=== PATIENT | male | born 1960 | race Caucasian/White ===

== ENCOUNTER 2020-08-20 14:44 | Outpatient (REF) | payer BC, SELFPAY | END 2020-08-20 14:45 | disposition home or self-care (01) | LOC: HO.LNP 14:44 | PROVIDERS: Visit Provider Ophthalmology Retina Specialist | DX: Z20.828 Contact with and (suspected) exposure to other viral communicable diseases (principal) | CPT/HCPCS: 36415; 87635 ==

== ENCOUNTER 2021-02-18 14:25 | Outpatient (REF) | payer BC, SELFPAY ==
--- NOTE | ~2021-02-18 | XR_ITS ---
EXAMINATION: XR CERVICAL SPINE CLINICAL INFORMATION: Cervical disc disorder. COMPARISON: None TECHNIQUE: 3 views of the cervical spine were obtained. FINDINGS: No acute fracture or subluxation. Vertebral body height and alignment is maintained. There is disc space narrowing of C5-C6 and C6-C7 with associated endplate osteophytes. The atlantoaxial joint is well aligned. The dens is intact. The prevertebral soft tissues are unremarkable. The visualized lung apices are clear. XR/XR cervical spine 3V IMPRESSION: Mild degenerative changes of the mid cervical spine.
== END 2021-02-18 14:26 | disposition home or self-care (01) ==
LOC: HO.HMGCX 14:25
PROVIDERS: Visit Provider Nurse Practitioner Family
DX: M50.90 Cervical disc disorder, unspecified, unspecified cervical region (principal)
CPT/HCPCS: 72040

== ENCOUNTER → 2021-02-28 14:41 | Outpatient (REF) | payer BC, SELFPAY ==
--- NOTE | 2021-02-28 14:46 | CA_ITS ---
Transthoracic Echocardiogram Patient (Last, First, Middle): River Sanchez R Gender: Male Date of : 1960 Age: 60 Procedure Date: 02/28/2021 Procedure Type: Transthoracic Echocardiogram Location: OP Height: 182.88 cm Weight: 113.4 kg BSA: 2.34 m2 Heart Rate: bpm BP: 150 / 92 mmHg Sprayer Operator: Referring MD: Lul Mederos [facility] Symptoms: R60.9 - Edema, unspecified Study Quality: Fair ECG Rhythm: Sinus Conclusions: - The left ventricular systolic function is normal. The visually estimated ejection fraction is between 60-65%. - There is mild tricuspid valve regurgitation. - Trace to mild aortic regurgitation. - Mild pulmonary hypertension is present. Findings Left Ventricle Normal left ventricular cavity size. There is normal left ventricular wall thickness. The left ventricular systolic function is normal. The visually estimated ejection fraction is between 60-65%. There is no evidence of regional wall motion abnormalities. Diastolic function is normal for age. Right Ventricle Mildly increased right ventricular cavity size. There is normal right ventricular systolic function. Atria The left atrium is normal in size. The right atrium is normal in size. Aortic Valve There is a normal trileaflet aortic valve. There is no aortic valve stenosis. Trace to mild aortic regurgitation. Mitral Valve The mitral valve appears normal. There is trace mitral valve regurgitation. There is no mitral valve stenosis. Pulmonic Valve The pulmonic valve was not well visualized. Tricuspid Valve Normal tricuspid valve structure. There is mild tricuspid valve regurgitation. The right ventricular systolic pressure is 36 mmHg. Mild pulmonary hypertension is present. Great Vessels The aortic annulus, sinuses of valsalva, and asc aorta are normal in size. Venous The inferior vena cava is normal in size and collapses greater than 50% with inspiration. Pericardium/Pleural There is no evidence of pericardial effusion. Prior Study Comparison No significant change compared to prior study dated: 06/08/2014. Measurements 2D Linear Measurements RVIDd: 3.16 RVIDd Index: 1.35 IVSd: 0.99 0.6-0.9/0.6-1.0 cm LVIDd: 5.10 3.9-5.3/4.2-5.9 cm LVIDd Index: 2.18 2.4-3.2/2.2-3.1 cm/m2 LVIDs: 3.53 2.0-3.6 cm LVPWd: 0.97 0.7-1.1 cm Ao Root: 3.70 2.1-3.5 cm LA Diam: 4.00 2.7-3.8/3.0-4.0 cm LAIDs Index: 1.71 1.5-2.3 cm/m2 LV Mass: 228.33 67-162/88-224 g LV Mass Index: 97.58 43-95/49-115 g/m2 LVOT Diam: 2.30 3.0+(-)1.3 cm 2D Systolic Function EF 4C: 65.50 >55% EF 2C: 60.10 >55% EF BiP: 63.60 >55% Mitral Valve MV Pk E: 0.83 MV PK A: 0.69 MV Decel Time: 236.00 E/A: 1.20 E'Lateral: 9.86 E'Medial: 6.87 E/E' Med: 12.10 E/E' Lat: 8.40 PHT: 69.00 MVA PHT: 3.19 Decel Wheeler: 3.52 Aortic Valve AoV Pk Jovany: 1.25 AoV Mn Jovany: 0.93 AoV VTI: 0.29 AoV Pk Grad: 6.00 Aov Mn Grad: 4.00 DI Cont.VTI: 3.86 LVOT LVOT Pk Jovany: 1.49 LVOT Mn Jovany: 0.88 LVOT VTI: 0.27 LVOT Pk Grad: 9.00 LVOT Mn Grad: 4.00 LVOT Diam: 2.30 LVOT Area: 4.15 Diastolic Function MV Pk E: 0.83 MV Pk A: 0.69 E/A: 1.20 E'Medial: 6.87 E/E' Med: 12.10 E' Laterial: 9.86 E/E' Lat: 8.40 Tricuspid Valve TR Pk Jovany: 2.65 TR Pk Grad: 28.00 RA Press: 8.00 RVSP: 36.00 Great Vessels Aorta Ao Root-2D: 3.70 2.0-3.7 cm Ao Asc: 3.60 2.1-3.4 cm Ao Arch: 3.50 Updated in Other Vendor System with Status of Final Duc Granado MD electronically signed on 03/01/2021 3:59:19 PM with status of Final
== END ==
LOC: HO.CARD 14:41
PROVIDERS: Visit Provider Nurse Practitioner Family
DX: R60.9 Edema, unspecified (principal); R01.1 Cardiac murmur, unspecified
CPT/HCPCS: 93306

== ENCOUNTER 2021-03-06 14:43 | Outpatient (REF) | payer BC, SELFPAY ==
[2021-03-06 17:06] LABS: Alanine Aminotransferase 17 U/L (0-40); Albumin Level 4.2 g/dL (3.5-5.0); Alkaline Phosphatase 85 U/L (39-117); Anion Gap 16 (12-20); Aspartate Amino Transferase 23 U/L (5-37); Bilirubin Total 0.7 mg/dL (0.0-1.0); Blood Urea Nitrogen 18 mg/dL (9-16); Calcium 9.4 mg/dL (8.4-10.2); Carbon Dioxide 27 mmol/L (22-29); Chloride 101 mmol/L (96-108); Cholesterol 182 mg/dL; Estimated Glomerular Filt Rate 56; Glucose Fasting 80 mg/dL (60-99); HDL Cholesterol 36 mg/dL; LDL Cholesterol Calculated 122 mg/dl; Potassium 4.7 mmol/L (3.3-5.1); Sodium 139 mmol/L (135-145); Total Protein 7.3 g/dL (6.5-8.0); Triglycerides 120 mg/dL
[2021-03-06 17:27] LABS: TSH reflex Free T4 0.98 uIU/mL (0.32-4.0)
== END 2021-03-06 14:44 | disposition home or self-care (01) ==
LOC: HO.HMGCLDS 14:43
PROVIDERS: PCP Nurse Practitioner Family; Visit Provider Nurse Practitioner Family
DX: R60.9 Edema, unspecified (principal); I10 Essential (primary) hypertension
CPT/HCPCS: 36415; 80053; 80061; 84443

== ENCOUNTER 2021-04-04 15:00 | Outpatient (RCR) | payer BC, SELFPAY ==
--- NOTE | 2021-03-06 16:37 | MHC.PT.EP ---
[facility] [place] Office [place] Office [place] Office [address] Deidra Mckeon [address] [phone] F: [phone] F: [phone] F: [phone] F: [phone] Physical Therapy Plan of Care Date of Evaluation: Date of Surgery: Diagnosis: Cervical Pain. Assessment: Pt is a 60 y/o male referred to PT for eval and treat of cervical pain who presents with signs and Sx consistent with cervical dysfunction resulting in decreased tolerance for turning his head to end ranges, decreased aleksandr for driving, reading, and recreations, as well as disturbed sleep secondary to decreased cervical ROM, increased accessory tissue tension, decreased cervical ROM and strength, and pain. Pt is deemed an appropriate candidate to receive skilled PT in order to address his physical limitations to improve his functional ability. Frequency and Duration: The patient will be seen 2 x/ wk x 4 wks. Short Term Goals: In 1 week: initiate HEP with evidence of compliance. In 3 weeks: end range pain to < 2/10; initial 4/10. Investigator Utility Bill Complaints Goals: In 4 weeks: I with HEP. In 4 weeks: Pt will be no linger disturbed of sleep d/t cervical pain. In 4 weeks: Pt will be able to drive w/o difficulty d/t cervical pain. Treatment Plan: Modalities to reduce pain, spasms and effusion. Manual therapy to restore motion and function. Therapeutic exercise to improve strength and flexibility. Neuromuscular re-education for posture and balance. Therapeutic activities to return to functional activities of daily living. Electronically signed by: Jules Doshi PT. Please sign and return to therapist. Thank you for your referral.
--- NOTE | 2021-04-04 19:27 | MHC.PT.DC ---
[facility] [place] Office [place] Office [place] Office [address] Deidra Mckeon [address] [phone] F: [phone] F: [phone] F: [phone] F: [phone] Physical Therapy Discharge Report Diagnosis: Cervical Pain. Date of Surgery: Date of Evaluation: 03/06/21 Date of Discharge: 04/04/21 Treatments to Date: 9 Cancellations to Date: 0 No Shows to Date: 0 Discharge Status: Achieved Goals Improved Function Independent with HEP Discharge Summary: River has been an active participant in hit therapy in and out of the clinic. He is in agreement with DC at this time as he has been pain free of his neck, has met his therapeutic goals and is I with his home program. Electronically signed by: Jules Doshi PT. Please sign and return to therapist. Thank you for your referral.
== END 2022-03-20 11:57 | disposition home or self-care (01) ==
LOC: HO.PTCHIC 15:00
PROVIDERS: Visit Provider Nurse Practitioner Family
DX: M50.90 Cervical disc disorder, unspecified, unspecified cervical region (principal)
CPT/HCPCS: 97110; 97140; 97161

== ENCOUNTER 2021-05-09 14:57 | Outpatient (REF) | payer BC, SELFPAY ==
[2021-05-09 16:51] LABS: Alanine Aminotransferase 18 U/L (0-40); Alkaline Phosphatase 80 U/L (39-117); Anion Gap 12 (12-20); Aspartate Amino Transferase 23 U/L (5-37); Bilirubin Total 0.4 mg/dL (0.0-1.0); Blood Urea Nitrogen 29 mg/dL (9-16); Calcium 9.4 mg/dL (8.4-10.2); Carbon Dioxide 29 mmol/L (22-29); Chloride 105 mmol/L (96-108); Estimated Glomerular Filt Rate 51; Glucose Random 89 mg/dL (60-115); Potassium 4.3 mmol/L (3.3-5.1); Sodium 142 mmol/L (135-145)
== END 2021-05-09 14:58 | disposition home or self-care (01) ==
LOC: HO.HMGCLDS 14:57
PROVIDERS: PCP Nurse Practitioner Family; Visit Provider Nurse Practitioner Family
DX: G47.33 Obstructive sleep apnea (adult) (pediatric) (principal)
CPT/HCPCS: 36415; 80053

== ENCOUNTER 2021-05-22 14:49 | Outpatient (REF) | payer BC, SELFPAY ==
[2021-05-22 16:53] LABS: Alanine Aminotransferase 14 U/L (0-40); Albumin Level 3.9 g/dL (3.5-5.0); Alkaline Phosphatase 69 U/L (39-117); Anion Gap 11 (12-20); Aspartate Amino Transferase 20 U/L (5-37); Bilirubin Total 0.4 mg/dL (0.0-1.0); Blood Urea Nitrogen 27 mg/dL (9-16); Calcium 9.6 mg/dL (8.4-10.2); Carbon Dioxide 29 mmol/L (22-29); Chloride 109 mmol/L (96-108); Estimated Glomerular Filt Rate 54; Glucose Random 81 mg/dL (60-115); Potassium 4.6 mmol/L (3.3-5.1); Sodium 144 mmol/L (135-145); Total Protein 6.9 g/dL (6.5-8.0)
== END 2021-05-22 14:50 | disposition home or self-care (01) ==
LOC: HO.HMGCLDS 14:49
PROVIDERS: PCP Nurse Practitioner Family; Visit Provider Nurse Practitioner Family
DX: R79.89 Other specified abnormal findings of blood chemistry (principal)
CPT/HCPCS: 36415; 80053

== ENCOUNTER → 2021-07-01 14:15 | Outpatient (BNVA) | payer BC, SELFPAY | PROVIDERS: PCP Nurse Practitioner Family; Visit Provider Internal Medicine ==

== ENCOUNTER 2021-12-04 08:54 | Outpatient (REF) | payer BC, SELFPAY ==
[2021-12-04 15:54] LABS: COVID-19 Test Positive (Negative)
== END 2021-12-04 08:55 | disposition home or self-care (01) ==
LOC: HO.LAB 08:54
PROVIDERS: Visit Provider Internal Medicine
DX: Z20.822 Contact with and (suspected) exposure to COVID-19 (principal)
CPT/HCPCS: 87635; C9803

== ENCOUNTER → 2022-04-29 10:47 | Outpatient (BNVA) | payer OTHER, SELFPAY | PROVIDERS: PCP Nurse Practitioner Family; Visit Provider Internal Medicine | DX: S61.012A Laceration without foreign body of left thumb without damage to nail, initial encounter (principal); W27.0XXA Contact with workbench tool, initial encounter; Z23 Encounter for immunization | CPT/HCPCS: 12001; 90715; 99203 ==

== ENCOUNTER → 2022-05-01 13:21 | Outpatient (BNVA) | payer OTHER, SELFPAY | PROVIDERS: PCP Nurse Practitioner Family; Visit Provider Internal Medicine | DX: S61.012A Laceration without foreign body of left thumb without damage to nail, initial encounter (principal); L03.012 Cellulitis of left finger; W27.0XXA Contact with workbench tool, initial encounter | CPT/HCPCS: 99214 ==

== ENCOUNTER → 2022-05-06 08:11 | Outpatient (BNVA) | payer OTHER, SELFPAY | PROVIDERS: PCP Nurse Practitioner Family; Visit Provider Internal Medicine | DX: S61.012A Laceration without foreign body of left thumb without damage to nail, initial encounter (principal); W27.0XXA Contact with workbench tool, initial encounter | CPT/HCPCS: 99212; 99213 ==

== ENCOUNTER 2022-12-22 15:03 | Outpatient (REF) | payer BC, SELFPAY ==
--- NOTE | ~2022-12-22 | XR_ITS ---
EXAMINATION: XR SHOULDER, RIGHT CLINICAL INFORMATION: Unspecified sprain right shoulder joint, initial encounter COMPARISON: Right shoulder radiographs 09/09/2011 TECHNIQUE: Three views of the right shoulder. FINDINGS: No acute fracture or dislocation. The glenohumeral joint space is maintained as is the acromiohumeral interval. Minimal marginal osteophyte formation at the inferior humeral head. No evidence calcific tendinopathy of the rotator cuff. AC joint is congruent and intact. No significant degenerative change/osteophyte formation. Visualized right lung is grossly clear. XR/XR shoulder RT min 2V IMPRESSION: 1. No acute osseous injury. 2. Preserved glenohumeral joint space.
== END 2022-12-22 15:04 | disposition home or self-care (01) ==
LOC: HO.HMGCX 15:03
PROVIDERS: PCP Nurse Practitioner Family; Visit Provider Internal Medicine
DX: S43.401A Unspecified sprain of right shoulder joint, initial encounter (principal); X58.XXXA Exposure to other specified factors, initial encounter; Y93.9 Activity, unspecified; Y92.9 Unspecified place or not applicable; Y99.9 Unspecified external cause status
CPT/HCPCS: 73030

== ENCOUNTER 2023-02-09 14:50 | Outpatient (REF) | payer BC, SELFPAY ==
--- NOTE | ~2023-02-09 | XR_ITS ---
EXAMINATION: XR KNEE, RIGHT CLINICAL INFORMATION: Pain COMPARISON: None available. TECHNIQUE: Four views of the right knee. FINDINGS: No fracture or dislocation. No suprapatellar joint effusion. Joint spaces are maintained. Prominent chondrocalcinosis noted. Tiny tricompartmental marginal osteophytes. No focal soft tissue swelling of the anterior knee. XR/XR knee RT 4V IMPRESSION: Mild degenerative changes of the right knee with prominent chondrocalcinosis.
[2023-02-09 16:40] LABS: MANUAL DIFF FLAG NO
[2023-02-09 16:41] LABS: Basophils Absolute Auto 0.1 X10*3/uL (0.0-0.2); Basophils Percent Auto 1.2 % (0-2); Eosinophils Absolute Auto 0.5 X10*3/uL (0.0-0.4); Eosinophils Percent Auto 5.5 % (0-4); Hematocrit 40.9 % (42.0-52.0); Hemoglobin 13.6 g/dl (14.0-18.0); Imm Gran Abs Auto 0.05 X10*3/uL (0.00-0.03); Imm Gran Pct Auto 0.6 % (0.0-0.4); Lymphocytes Absolute Auto 2.6 X10*3/uL (1.2-4.9); Lymphocytes Percent Auto 29.2 % (20-40); Mean Corpuscular HGB Conc 33.3 g/dl (31.0-36.0); Mean Corpuscular Hemoglobin 31.3 pg (27.0-33.0); Mean Corpuscular Volume 94.2 fL (80.0-98.0); Mean Platelet Volume 10.3 fL (9.4-12.4); Monocytes Absolute Auto 1.1 X10*3/uL (0.1-1.2); Monocytes Percent Auto 11.8 % (2-11); Neutrophils Absolute Auto 4.7 x10*3/uL (2.0-8.3); Neutrophils Percent Auto 51.7 % (45-73); Platelet Count 356 X10*3/uL (160-400); Red Blood Count 4.34 X10*6/uL (4.60-5.80)
[2023-02-09 16:58] LABS: Appearance Urine Clear; Color Urine Yellow; Glucose Urine UA Negative (Negative); Leukocyte Esterase Urine Negative (Negative); Nitrite Urine Negative (Negative); PH 5.5 (5.0-9.0); Urine Blood Negative (Negative); Urine Ketones Negative (Negative); Urine Protein Negative (Neg-Trace)
[2023-02-09 17:05] LABS: Alanine Aminotransferase 17 U/L (0-40); Albumin Level 3.9 g/dL (3.5-5.0); Alkaline Phosphatase 84 U/L (39-117); Anion Gap 12 (12-20); Aspartate Amino Transferase 19 U/L (5-37); Bilirubin Total 0.4 mg/dL (0.0-1.0); Blood Urea Nitrogen 25 mg/dL (9-16); Calcium 9.7 mg/dL (8.4-10.2); Carbon Dioxide 28 mmol/L (22-29); Chloride 105 mmol/L (96-108); Cholesterol 206 mg/dL; Estimated Glomerular Filt Rate 59; Glucose Fasting 86 mg/dL (60-99); HDL Cholesterol 35 mg/dL; Iron 82 mcg/dL (45-160); LDL Cholesterol Calculated 145 mg/dl; Percent Iron Saturation 32 % (15-50); Potassium 4.5 mmol/L (3.3-5.1); Sodium 140 mmol/L (135-145); Total Iron Binding Capacity 260 mcg/dL (228-428); Total Protein 6.8 g/dL (6.5-8.0); Triglycerides 132 mg/dL; Unsaturated Iron Binding 178 ug/dL
[2023-02-09 17:21] LABS: Ferritin 213 ng/mL (20-250); Prostate Specific Antigen Scr 1.69 ng/mL (<0.05-4.0); TSH reflex Free T4 1.74 uIU/mL (0.32-4.0)
== END 2023-02-09 14:51 | disposition home or self-care (01) ==
LOC: HO.HMGCLDS 14:50
PROVIDERS: PCP Nurse Practitioner Family; Visit Provider Nurse Practitioner Family
DX: Z00.00 Encounter for general adult medical examination without abnormal findings (principal); G25.81 Restless legs syndrome; D64.9 Anemia, unspecified; M25.561 Pain in right knee; Z12.5 Encounter for screening for malignant neoplasm of prostate; E78.5 Hyperlipidemia, unspecified
CPT/HCPCS: 36415; 73564; 80053; 80061; 81003; 82728; 83540; 84153; 84443; 85025

== ENCOUNTER → 2023-02-12 14:41 | Outpatient (REF) | payer BC, SELFPAY ==
--- NOTE | 2023-02-12 14:43 | CA_ITS ---
Transthoracic Echocardiogram Patient (Last, First, Middle): River Sanchez R Gender: Male Date of : 1960 Age: 62 Procedure Date: 02/12/2023 Procedure Type: Transthoracic Echocardiogram Location: OP Height: 182.88 cm Weight: 109.77 kg BSA: 2.31 m2 Heart Rate: bpm BP: 142 / 92 mmHg Rn Plasma Center: [place] Referring MD: Lul Mederos [facility] Symptoms: R01.1 - Cardiac murmur, unspecified Study Quality: Fair ECG Rhythm: Sinus Conclusions: - The left ventricular systolic function is normal. The calculated ejection fraction is 62% by biplane method. - There is mild aortic valve regurgitation. - There is mild dilatation of the ascending aorta measuring 3.90 cm. Findings Left Ventricle Normal left ventricular cavity size. There is normal left ventricular wall thickness. The left ventricular systolic function is normal. The calculated ejection fraction is 62% by biplane method. There is no evidence of regional wall motion abnormalities. Diastolic function is normal for age. LV peak GLS -19.7%. Right Ventricle Mildly increased right ventricular cavity size. There is normal right ventricular systolic function. Atria Both atria are normal in size. Aortic Valve There is a normal trileaflet aortic valve. There is no aortic valve stenosis. There is mild aortic valve regurgitation. Mitral Valve The mitral valve appears normal. There is no mitral valve regurgitation. There is no mitral valve stenosis. Pulmonic Valve The pulmonic valve is likely normal. Tricuspid Valve Normal tricuspid valve structure. There is mild tricuspid valve regurgitation. There is no evidence of pulmonary hypertension. Great Vessels There is mild dilatation of the ascending aorta measuring 3.90 cm. Venous The inferior vena cava is normal in size and collapses greater than 50% with inspiration. Pericardium/Pleural There is no evidence of pericardial effusion. Prior Study Comparison Changes noted compared to prior study dated: 02/28/2021. sight increase in ascending aortic size. Measurements 2D Linear Measurements IVSd: 0.95 0.6-0.9/0.6-1.0 cm LVIDd: 4.85 3.9-5.3/4.2-5.9 cm LVIDd Index: 2.10 2.4-3.2/2.2-3.1 cm/m2 LVIDs: 2.96 2.0-3.6 cm LVPWd: 0.79 0.7-1.1 cm LA Diam: 3.10 2.7-3.8/3.0-4.0 cm LAIDs Index: 1.34 1.5-2.3 cm/m2 LV Mass: 178.99 67-162/88-224 g LV Mass Index: 77.49 43-95/49-115 g/m2 LVOT Diam: 2.50 3.0+(-)1.3 cm 2D Systolic Function EF 4C: 58.90 >55% EF 2C: 67.60 >55% EF BiP: 62.40 >55% Mitral Valve MV Pk E: 0.63 MV PK A: 0.55 MV Decel Time: 266.00 E/A: 1.20 E'Lateral: 10.80 E'Medial: 6.96 E/E' Med: 9.10 E/E' Lat: 5.90 PHT: 78.00 MVA PHT: 2.82 Decel Greer: 2.38 Aortic Valve AoV Pk Jovany: 1.95 AoV Mn Jovany: 1.16 AoV VTI: 0.35 AoV Pk Grad: 15.00 Aov Mn Grad: 6.00 DI Cont.VTI: 3.50 AI Pk Jovany: 4.23 AI Greer: 1.43 LVOT LVOT Pk Jovany: 1.17 LVOT Mn Jovany: 0.80 LVOT VTI: 0.25 LVOT Pk Grad: 5.00 LVOT Mn Grad: 3.00 LVOT Diam: 2.50 LVOT Area: 4.91 Diastolic Function MV Pk E: 0.63 MV Pk A: 0.55 E/A: 1.20 E'Medial: 6.96 E/E' Med: 9.10 E' Laterial: 10.80 E/E' Lat: 5.90 Right Ventricle TAPSE (mm): 27.20 TVS' Jovany: 10.80 Tricuspid Valve TR Pk Jovany: 2.35 TR Pk Grad: 22.00 RA Press: 3.00 RVSP: 25.00 Great Vessels Aorta Sinus of Valsalva: 4.23 2.0-3.[address] [place]: 3.44 1.7-3.4 cm Ao Asc: 3.90 2.1-3.4 cm Updated in Other Vendor System with Status of Final Duc Granado MD electronically signed on 02/13/2023 10:56:02 AM with status of Final
== END ==
LOC: HO.CARD 14:41
PROVIDERS: PCP Nurse Practitioner Family; Visit Provider Nurse Practitioner Family
DX: R01.1 Cardiac murmur, unspecified (principal)
CPT/HCPCS: 93306; 93356

== ENCOUNTER → 2023-03-19 15:01 | Outpatient (BNVA) | payer BC, SELFPAY | PROVIDERS: PCP Nurse Practitioner Family; Visit Provider Nurse Practitioner Family ==

== ENCOUNTER 2023-03-30 15:02 | Outpatient (REF) | payer BC, SELFPAY ==
[2023-03-30 16:39] LABS: MANUAL DIFF FLAG NO
[2023-03-30 16:45] LABS: Basophils Absolute Auto 0.1 X10*3/uL (0.0-0.2); Basophils Percent Auto 1.1 % (0-2); Eosinophils Absolute Auto 0.5 X10*3/uL (0.0-0.4); Eosinophils Percent Auto 6.2 % (0-4); Hematocrit 41.9 % (42.0-52.0); Hemoglobin 13.9 g/dl (14.0-18.0); Imm Gran Abs Auto 0.03 X10*3/uL (0.00-0.03); Imm Gran Pct Auto 0.4 % (0.0-0.4); Immature Retic Fraction 9.4 % (2.3-13.4); Lymphocytes Absolute Auto 2.4 X10*3/uL (1.2-4.9); Lymphocytes Percent Auto 31.6 % (20-40); Mean Corpuscular HGB Conc 33.2 g/dl (31.0-36.0); Mean Corpuscular Volume 93.5 fL (80.0-98.0); Mean Platelet Volume 10.6 fL (9.4-12.4); Monocytes Percent Auto 12.8 % (2-11); Neutrophils Absolute Auto 3.6 x10*3/uL (2.0-8.3); Neutrophils Percent Auto 47.9 % (45-73); Platelet Count 321 X10*3/uL (160-400); Red Blood Count 4.48 X10*6/uL (4.60-5.80); Red Cell Distribution Width 13.2 % (11.0-16.0); Retic HGB Equivalent 35.7 pg (30.0-35.0); Reticulocyte Percent 1.3 % (0.5-1.8); Reticulocytes Absolute 0.056 X10*6/uL (0.026-0.095); White Blood Count 7.4 X10*3/uL (4.8-10.8)
[2023-03-30 17:05] LABS: Iron 86 mcg/dL (45-160); Percent Iron Saturation 34 % (15-50); Total Iron Binding Capacity 254 mcg/dL (228-428); Unsaturated Iron Binding 168 ug/dL
[2023-03-30 17:36] LABS: Ferritin 202 ng/mL (20-250); Folate 12.8 ng/mL (> or = 4.0); Vitamin B12 428 pg/mL (200-900)
== END 2023-03-30 15:03 | disposition home or self-care (01) ==
LOC: HO.HMGCLDS 15:02
PROVIDERS: PCP Nurse Practitioner Family; Visit Provider Nurse Practitioner Family
DX: D64.9 Anemia, unspecified (principal)
CPT/HCPCS: 36415; 82607; 82728; 82746; 83540; 85025; 85045

== ENCOUNTER 2023-04-01 14:47 | Outpatient (REF) | payer BC, SELFPAY ==
[2023-04-01 17:58] LABS: FIT1 NEGATIVE (NEGATIVE)
[2023-04-01 17:59] LABS: FIT Int Ctl YES; FIT2 NEGATIVE (NEGATIVE)
== END 2023-04-01 14:48 | disposition home or self-care (01) ==
LOC: HO.HMGCLNP 14:47
PROVIDERS: PCP Nurse Practitioner Family; Visit Provider Nurse Practitioner Family
DX: D64.9 Anemia, unspecified (principal)
CPT/HCPCS: 82274

== ENCOUNTER → 2023-05-21 11:39 | Day surgery (SDC) | payer BC, SELFPAY ==
--- NOTE | 2023-05-21 12:48 | HO.ANESPROP2 ---
HPI - Anesthesia Eval Consult details Narrative: Colonoscopy [facility] Active Problems Active Problems: All Active Problems (Updated 02/09/23 @ 17:28 by Lul Mederos [facility]) Anemia (Acute) Lipid disorder (Acute) Right knee pain (Acute) Restless legs (Acute) Screening PSA (prostate specific antigen) (Acute) Physical exam (Acute) Screening for colon cancer (Acute) Sprain of right shoulder (Acute) Daytime sleepiness (Acute) Pulmonary hypertension (Acute) History of smoking at least 1 pack per day for at least 30 years (Acute) Obesity (BMI 35.0-39.9 without comorbidity) (Acute) Elevated serum creatinine (Acute) BRADEN (obstructive sleep apnea) (Acute) HTN (hypertension) (Acute) Cervical neck pain with evidence of disc disease (Acute) Systolic murmur (Acute) Edema (Acute) Eczematous dermatitis (Acute) Encounter for screening laboratory testing for COVID-19 virus (Acute) Past Medical History Medical History Daytime sleepiness History of smoking at least 1 pack per day for at least 30 years Obesity (BMI 35.0-39.9 without comorbidity) Pulmonary hypertension Family History Family History Father Cancer Mother No problems noted. 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 Current occupational exposures/hazards: No Cognitive needs: No Hearing needs: No Vision needs: Yes (Bifocals) Meds Allergies Allergy/AdvReac Type Severity Reaction Status Date / Time nuts Allergy Unknown Anaphylaxis Uncoded 03/19/23 15:15 soap AdvReac Unknown rash Uncoded 03/19/23 15:15 Home Medications Medication Instructions Recorded Confirmed Last Taken Type cholecalciferol (vitamin D3) 25 25 mcg PO DAILY 01/21/21 02/05/23 Unknown History mcg (1,000 unit) capsule dupilumab 300 mg/2 mL subcutaneous mg subcut 01/21/21 02/05/23 Unknown History pen injector ferrous sulfate 325 mg (65 mg 325 mg PO DAILY 01/21/21 02/05/23 Unknown History iron) tablet (FeroSul) vitamin A 2,400 mcg capsule 2,400 mcg PO DAILY 01/21/21 02/05/23 Unknown History Exam Exam Date and Time: May 21, 2023 1248 Airway Mallampati Class: II TM Dist: >3cm Neck ROM: Limited Heart: rrr Lungs: cta Assessment and Plan Assessment Anesthesia Assessment: Anesthesia Plan Discussed and Chart Reviewed Final Anesthetic Review Family History of Problems with Anesthesia: No History of Problems with Anesthesia: No NPO: Yes ASA Class: III Final Preanesthetic Review: No Changes in Pt Med Stat, Meds/Allgs Chart Reviewed, Consent Obtained/Reviewed and Anes Risks/Benef Reviewed Patient Risk: Intermediate Procedure Risk: Low Anesthetic Plan Anesthetic Plan: MAC: and Agree w/ Assess. and Plan Disposition: Standard PACU
== END ==
PROVIDERS: PCP Nurse Practitioner Family; Visit Provider Internal Medicine Gastroenterology
DX: Z12.11 Encounter for screening for malignant neoplasm of colon (principal); Z53.8 Procedure and treatment not carried out for other reasons; I27.20 Pulmonary hypertension, unspecified; G47.09 Other insomnia; E66.9 Obesity, unspecified; Z68.33 Body mass index [BMI] 33.0-33.9, adult; Z91.018 Allergy to other foods; Z91.048 Other nonmedicinal substance allergy status; Z87.891 Personal history of nicotine dependence
CPT/HCPCS: 45378

== ENCOUNTER 2023-07-21 07:54 | Day surgery (SDC) | payer BC, SELFPAY ==
[2023-07-16 09:58] VITALS: BMI 33.2
--- NOTE | 2023-07-17 13:03 | HO.ANESPROP2 ---
Documented by User: Radha Harmon NP 07/17/23 13:05 HPI - Anesthesia Eval Consult details Narrative: 62yo M for Colonoscopy PMFSH Active Problems Active Problems: All Active Problems (Updated 02/09/23 @ 17:28 by Lul Mederos, [facility]) Encounter for screening laboratory testing for COVID-19 virus (Acute) Eczematous dermatitis (Acute) Edema (Acute) Systolic murmur (Acute) Cervical neck pain with evidence of disc disease (Acute) HTN (hypertension) (Acute) BRADEN (obstructive sleep apnea) (Acute) Elevated serum creatinine (Acute) Sprain of right shoulder (Acute) Screening for colon cancer (Acute) Physical exam (Acute) Screening PSA (prostate specific antigen) (Acute) Restless legs (Acute) Right knee pain (Acute) Lipid disorder (Acute) Anemia (Acute) Daytime sleepiness (Acute) Pulmonary hypertension (Acute) History of smoking at least 1 pack per day for at least 30 years (Acute) Obesity (BMI 35.0-39.9 without comorbidity) (Acute) Past Medical History Medical History (Updated 07/21/23 @ 09:30 by Inna Sam MD) Daytime sleepiness History of smoking at least 1 pack per day for at least 30 years Obesity Pulmonary hypertension Family History Family History Father Cancer Mother No problems noted. 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 Current occupational exposures/hazards: No Cognitive needs: No Hearing needs: No Vision needs: Yes (Bifocals) Meds Allergies Allergy/AdvReac Type Severity Reaction Status Date / Time nuts Allergy Severe Anaphylaxis Uncoded 07/16/23 09:58 soap AdvReac Intermediate rash Uncoded 07/16/23 09:58 Home Medications Medication Instructions Recorded Confirmed Last Taken Type cholecalciferol (vitamin D3) 25 25 mcg PO DAILY 01/21/21 07/16/23 Unknown History mcg (1,000 unit) capsule dupilumab 300 mg/2 mL subcutaneous 300 mg subcut Q2W 01/21/21 07/16/23 Unknown History pen injector ferrous sulfate 325 mg (65 mg 325 mg PO DAILY 01/21/21 07/16/23 07/17/23 History iron) tablet (FeroSul) vitamin A 2,400 mcg capsule 2,400 mcg PO DAILY 01/21/21 07/16/23 Unknown History Exam Exam Date and Time: July 17, 2023 1303 Height,Weight and Vital Signs: Height 6 ft Weight 111.13 kg Pertinent Lab Results Pertinent Lab Results: Laboratory Tests 02/09/23 03/30/23 14:56 15:12 WBC 7.4 Hgb 13.9 L Hct 41.9 L Plt Count 321 Sodium 140 Potassium 4.5 Chloride 105 Carbon Dioxide 28 BUN 25 H Creatinine 1.23 Narrative Narrative: ECHO 01/2023 Conclusions: - The left ventricular systolic function is normal.? The ? calculated ejection fraction is 62% by biplane method. ? - There is mild aortic valve regurgitation.? - There is mild dilatation of the ascending aorta measuring 3.90 cm.? ? Assessment and Plan Assessment Anesthesia Assessment: Chart Reviewed Final Anesthetic Review Family History of Problems with Anesthesia: No History of Problems with Anesthesia: No Documented by User: Inna Sam MD 07/21/23 09:55 HPI - Anesthesia Eval Consult details Narrative: 62yo M for Colonoscopy. Patient was here on 05/21/23 for Colonoscopy but states did not go into OR at all and procedure had to be rescheduled due to inadequate prep. PMFSH Active Problems Active Problems: All Active Problems (Updated 07/21/23 @ 09:28 by Inna Sam MD) Encounter for screening laboratory testing for COVID-19 virus (Acute) Eczematous dermatitis (Acute) Edema (Acute) Systolic murmur (Acute) Cervical neck pain with evidence of disc disease (Acute) HTN (hypertension) (Acute)_ patient states BP only high once and was never [id number] for HTN but t BRADEN (obstructive sleep apnea) (Acute)- Patient denies. Never tested. Does snore Elevated serum creatinine (Acute) Sprain of right shoulder (Acute) Screening for colon cancer (Acute) Screening PSA (prostate specific antigen) (Acute) Restless legs (Acute) Right knee pain (Acute) Lipid disorder (Acute) Anemia (Acute) Daytime sleepiness (Acute) Pulmonary hypertension (Acute)- Most recent echo 01/2023 states no pulmonary hypertension History of smoking at least 1 pack per day for at least 30 years (Acute)- Quit 12 years ago Obesity C/o some pain behind left knee which he has had in the past. No redness, no swelling seen. Front of left knee with some old bruise verma but patient states no trauma to knee Past Medical History Medical History (Updated 07/21/23 @ 09:30 by Inna Sam MD) Daytime sleepiness History of smoking at least 1 pack per day for at least 30 years Obesity Pulmonary hypertension Family History Family History Father Cancer Mother No problems noted. 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 Current occupational exposures/hazards: No Cognitive needs: No Hearing needs: No Vision needs: Yes (Bifocals) Meds Allergies Allergy/AdvReac Type Severity Reaction Status Date / Time nuts Allergy Severe Anaphylaxis Uncoded 07/16/23 09:58 soap AdvReac Intermediate rash Uncoded 07/16/23 09:58 Home Medications Medication Instructions Recorded Confirmed Last Taken Type cholecalciferol (vitamin D3) 25 25 mcg PO DAILY 01/21/21 07/16/23 Unknown History mcg (1,000 unit) capsule dupilumab 300 mg/2 mL subcutaneous 300 mg subcut Q2W 01/21/21 07/16/23 Unknown History pen injector ferrous sulfate 325 mg (65 mg 325 mg PO DAILY 01/21/21 07/16/23 07/17/23 History iron) tablet (FeroSul) vitamin A 2,400 mcg capsule 2,400 mcg PO DAILY 01/21/21 07/16/23 Unknown History Exam Height,Weight and Vital Signs: Height 6 ft Weight 111.13 kg Vital Signs Temp Pulse Resp BP Pulse Ox O2 Del Method 07/21/23 08:30 98.3 F 78 20 147/81 H 98 Room Air Narrative Narrative: ECHO 01/2023 Conclusions: - The left ventricular systolic function is normal.? The ? calculated ejection fraction is 62% by biplane method. ? - There is mild aortic valve regurgitation.? - There is mild dilatation of the ascending aorta measuring 3.90 cm.? ? No regional wall motion abnormalities. No evidence of pulmonary hypertension Airway Mallampati Class: II TM Dist: >3cm Neck ROM: Limited (Good extension but some pain extending to right shoulder from neck- patient states from pillow) Denture: Upper and Lower Loose/Missing/Broken Teeth: Yes Heart: RRR. No murmur appreciated Lungs: CTAB Assessment and Plan Assessment Anesthesia Assessment: Anesthesia Plan Discussed Final Anesthetic Review NPO: Yes ASA Class: III Final Preanesthetic Review: No Changes in Pt Med Stat, Meds/Allgs Chart Reviewed, Consent Obtained/Reviewed and Anes Risks/Benef Reviewed Patient Risk: Intermediate Procedure Risk: Low Assessment/Block/Sedation in SS: Assess/Block/Sedation-SS Anesthetic Plan Anesthetic Plan: MAC: and Agree w/ Assess. and Plan Disposition: Standard PACU
[2023-07-21 08:30] VITALS: BP 147/81; PULSE 78; RESP 20; TEMP 36.8; O2SAT 98
--- NOTE | 2023-07-21 08:41 | PC.NURSE ---
pt c/o left knee pain denies injury behind the knee sts sitting all day yesterday anesthesia aware
[2023-07-21] MEDS: Lactated Ringers 1,000 ML 100 ML IVCONT (08:53)
--- NOTE | 2023-07-21 09:37 | MHC.SHP ---
Pre-Procedural Eval Section A Date of Service: 07/21/23 Section B Chief Complaint: Encounter for screening for malignant neoplasm Relevant Family History (Specify if Yes): No Relevant Social History: None Present Medications: see Short Stay Collaborative assessment Medical History: Significant History (Daytime sleepiness History of smoking at least 1 pack per day for at least 30 years Obesity Pulmonary hypertension) History of Previous Operations: Relevant previous surgery/procedure and date(s) (H/O shoulder surgery History of colonoscopy History of vasectomy) Allergies: Allergies Allergy/AdvReac Type Severity Reaction Status Date / Time nuts Allergy Severe Anaphylaxis Uncoded 07/16/23 09:58 soap AdvReac Intermediate rash Uncoded 07/16/23 09:58 Review of Systems Sugical H&P ROS: Negative: Constitution, Cardiovascular, Respiratory, Neurological, Psychiatric, Hem-Onc, Allergic/Immunologic, Gastrointestinal, Genitourinary, Musculoskeletal, Integumentary, Endocrine and Eyes/Ears/Nose/Throat Exam Surgical H&P Exam: Normal: HEENT, Normal: Heart, Normal: Lungs, Normal: Extremities, Normal: Abdomen, Normal: Skin and Normal: Neurological Plan Diagnosis/Plan: Unchanged I have reviewed the history and physical and performed a pertinent physical examination on my patient. No changes have occurred unless specified. Time Spent With Patient Time: Total time managing care of this patient today ____ minutes.
--- NOTE | 2023-07-21 09:38 | W.PM.OPN ---
Operative Note Operative Note Date of Service: 07/21/23 Narrative: Operative Information Procedure Description: Colonoscopy Indication: screening Anesthesia: MAC COLONOSCOPY Instrument: Olympus variable stiffness ADULT scope 190L Colonoscopy Monitoring: Vital signs and clinical assessment, continuous EKG monitoring, Pulse oximetry, Carbon Dioxide monitoring and blood pressure monitoring were done throughout the procedure. Colon withdrawal time was 12 minutes. Procedure: The patient was placed in the left lateral decubitis position and pre-procedure medications were administered. After a digital rectal examination of the ano-rectum, the video colonoscope was inserted into the rectum and advanced through the colon to the cecum/TI. The colonoscope was slowly withdrawn in a retrograde panoramic fashion and the colon mucosa was carefully examined including a retroflexed view of the rectum. Findings and interventions are described below. Procedure Difficulty: moderate, pressure applied Findings: Terminal Ileum-normal Cecum:normal Ascending Colon: normal Transverse Colon -normal Descending Colon:normal Sigmoid Colon: moderate diverticulosis Rectum: Retroflexion with small to medium internal hemorrhoids, grade I Anorectum - normal Colon preparation: [place] Bowel Preparation Scale Right colon; 2 Transverse colon: 3 Left colon; 3 (0 = Unprepared colon segment with mucosa not seen due to solid stool that cannot be cleared. 1 = Portion of mucosa of the colon segment seen, but other areas of the colon segment not well seen due to staining, residual stool and/or opaque liquid. 2 = Minor amount of residual staining, small fragments of stool and/or opaque liquid, but mucosa of colon segment seen well. 3 = Entire mucosa of colon segment seen well with no residual staining, small fragments of stool or opaque liquid) Impression and Post Procedure Diagnosis: internal hemorrhoids diverticular disease Plan: High fiber diet leaflet Avoid straining at stool, epsom salts and sitz bath, anusol supps or cream Repeat Colonoscopy in 10 years or earlier if clinically indicated Above findings were reviewed with the patient and relevant handouts were provided if indicated.
[2023-07-21 10:21] VITALS: BP 107/59; PULSE 65; RESP 16; TEMP 36.9; O2SAT 97
[2023-07-21 10:36] VITALS: BP 109/62; PULSE 71; RESP 16; O2SAT 97
[2023-07-21 10:49] VITALS: BP 121/64; PULSE 66; RESP 16; O2SAT 97
== END 2023-07-21 11:22 | disposition home or self-care (01) ==
PROVIDERS: PCP Nurse Practitioner Family; Visit Provider Internal Medicine Gastroenterology
PROC: 0DJD8ZZ Inspection of Lower Intestinal Tract, Via Natural or Artificial Opening Endoscopic (ICD-10-PCS; CPT 45378; principal; 2023-07-21 09:50)
DX: Z12.11 Encounter for screening for malignant neoplasm of colon (principal); K57.30 Diverticulosis of large intestine without perforation or abscess without bleeding; K64.0 First degree hemorrhoids; I27.20 Pulmonary hypertension, unspecified; D64.9 Anemia, unspecified; E78.9 Disorder of lipoprotein metabolism, unspecified; G47.33 Obstructive sleep apnea (adult) (pediatric); E66.9 Obesity, unspecified; Z68.33 Body mass index [BMI] 33.0-33.9, adult; Z87.891 Personal history of nicotine dependence; Z79.899 Other long term (current) drug therapy
CPT/HCPCS: 45378

== ENCOUNTER → 2023-07-21 07:54 | Outpatient (BNV) | payer BC, SELFPAY | PROVIDERS: PCP Nurse Practitioner Family; Visit Provider Internal Medicine Gastroenterology | DX: Z12.11 Encounter for screening for malignant neoplasm of colon (principal); K57.30 Diverticulosis of large intestine without perforation or abscess without bleeding; K64.9 Unspecified hemorrhoids | CPT/HCPCS: 45378 ==

== ENCOUNTER 2023-07-23 08:32 | Outpatient (AMB) | payer BC, SELFPAY ==
--- NOTE | 2023-07-23 09:54 | AM.OFFWIN_ITS ---
Intake Vital Signs 07/23/23 09:58 Height 6 ft Weight 245 lb BMI 33.2 BP 120/80 Blood Pressure Location Rt brachial Position Sitting Pulse 70 Pulse Source Pulse Oximeter Intake Visit Reasons: EST/left knee swelling Intake Note: Patient here for left knee swelling that started this past thursday. No known injuries. Patient Tobacco Use Status: Former Tobacco user Allergies nuts Allergy (Severe, Uncoded 07/23/23 10:00) Anaphylaxis soap Adverse Reaction (Intermediate, Uncoded 07/23/23 10:00) rash Do you need a note to return to daycare/school/sports/work: No HPI HPI Comments History of Present Illness Details 62-year-old male who presents for knee s welling. Patient states that he developed the swelling 2 days ago he was sitting down and stood up maybe felt a twinge CT working on insulin felt better have his colonoscopy and they recommended he get his knee checked out. Gradually theswelling has gradually increased in the knee and down the leg and feels sensation behind the knee also endorses some pain. PFSH Medical History Obesity Daytime sleepiness Pulmonary hypertension History of smoking at least 1 pack per day for at least 30 years Surgical History H/O shoulder surgery History of colonoscopy History of vasectomy Family History Father Cancer Mother No problems noted. 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 Right calf swelling no tenderness to palpation. No erythema or warmth Assessment & Plan Assessment & Plan (1) Knee swelling: Code(s): M25.469 - Effusion, unspecified knee Plan given patient presentation of consideration is swelling secondary to ligamentous injury versus arthritis versus DVT. Will should x-ray. my interpretation shows prepatellar edema no obvious fractures or dislocations. Would recommend DVT study at this time if negative patient can continue with symptomatic treatment weightbearing as tolerated and follow-up with orthopedics. Discharge instructions, follow up and treatment are discussed with patient in my usual fashion. Alternatives in treatment are also discussed. The patient will return for worsening symptoms or as needed. Advised that any labs/imaging ordered will be followed up on and contact made if further treatment needed. Counseled that patient's condition may require further evaluation and/or treatment. Symptoms of concern for worsening disorder discussed in detail in my customary manner. Patient does verbalize understanding of the plan, there are no apparent barriers to communication. The patient is given the opportunity to ask questions and have them answered to his/her satisfaction Orders: Orders US venous duplex LE LT Today R60.9 - Edema, unspecified Coding Level of Care Code Est Pt Level 4 (44489) Diagnoses Knee swelling M25.469
[2023-07-23 09:58] VITALS: BP 120/80; PULSE 70; BMI 33.2
== END 2023-07-23 10:46 | disposition home or self-care (01) ==
PROVIDERS: PCP Nurse Practitioner Family; Visit Provider Physician Assistant
DX: M25.469 Effusion, unspecified knee (principal)
CPT/HCPCS: 99214

== ENCOUNTER 2023-07-23 10:28 | Outpatient (REF) | payer BC, SELFPAY ==
--- NOTE | ~2023-07-23 | XR_ITS ---
EXAMINATION: XR KNEE, LEFT CLINICAL INFORMATION: Fusion COMPARISON: None available. TECHNIQUE: Four views of the left knee. FINDINGS: Bone alignment is normal. No fracture or dislocation. Degenerative meniscal calcification. Tug lesion or bony exostosis projecting off the posterior medial femoral metaphysis. Small osteophytes at the patellofemoral joint. Small joint effusion. XR/XR knee LT 4V IMPRESSION: Degenerative changes. Small joint effusion. Bony exostosis or tug lesion projecting off the posterior medial femoral metaphysis.
== END 2023-07-23 10:29 | disposition home or self-care (01) ==
LOC: HO.HMGCX 10:28
PROVIDERS: PCP Nurse Practitioner Family; Visit Provider Physician Assistant
DX: M25.462 Effusion, left knee (principal)
CPT/HCPCS: 73564

== ENCOUNTER 2023-07-23 11:05 | Outpatient (REF) | payer BC, SELFPAY ==
--- NOTE | ~2023-07-23 | US_ITS ---
EXAMINATION: US VENOUS ULTRASOUND WITH DOPPLER LOWER EXTREMITY, LEFT CLINICAL INFORMATION: Leg pain and swelling COMPARISON: None available. TECHNIQUE: Ultrasound of the deep veins is performed from the hip to the calf with compression sonography and color and pulse Doppler assessment. Spectral analysis with color-flow imaging is performed. FINDINGS: There is normal venous compression and respiratory variation and augmented flow. The visualized common femoral vein, superficial femoral vein, profunda femoral vein, popliteal vein, and the trifurcation region shows no evidence of deep venous thrombosis. A Cruz cyst is evident in the popliteal fossa measuring 38 x 24 x 22 mm. There is also a moderate size knee joint effusion. US/US venous duplex LE LT IMPRESSION: 1. No evidence of deep vein thrombosis in the left femoral popliteal system. 2. Complex 38 x 24 x 22 mm Cruz cyst in the left popliteal fossa. 2. Moderate-sized knee joint effusion.
== END 2023-07-23 11:06 | disposition home or self-care (01) ==
LOC: HO.HMGCX 11:05
PROVIDERS: PCP Nurse Practitioner Family; Visit Provider Physician Assistant
DX: R60.9 Edema, unspecified (principal); M79.662 Pain in left lower leg
CPT/HCPCS: 93971

== ENCOUNTER 2023-08-03 15:03 | Outpatient (AMB) | payer BC, SELFPAY ==
--- NOTE | 2023-08-03 15:13 | MHC.OFFVIS ---
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 Denies any issues with anesthesia in the past.? Denies any history of sleep apnea.? Last colonoscopy in 2008 showed no polyps. No history infectious diseases in the past or present.? Not on any anticoagulation therapy.? No family or personal history of colon cancer or polyps.? Patient denies melena, hematochezia, unintentional weight loss or ribbon like stools.? Discussed at length the pre-procedure,? prep, diet & medications as well as what to expect prior, during and after the procedure.?? Stressed the importance of good bowel prep. ?Recommended the use of Vaseline or Calmoseptine OTC & baby wipes with bowel movements to promote comfort.? ?Patient verbalizes understanding and agrees to plan of care.? He was given the opportunity to ask questions and all questions answered.? We will see him after the procedure.? COLONOSCOPY Findings: Terminal Ileum-normal Cecum:normal Ascending Colon: normal Transverse Colon -normal Descending Colon:normal Sigmoid Colon: moderate diverticulosis Rectum: Retroflexion with small to medium internal hemorrhoids, grade I Anorectum - normal Colon preparation: [place] Bowel Preparation Scale Right colon; 2 Transverse colon: 3 Left colon; 3 (0 = Unprepared colon segment with mucosa not seen due to solid stool that cannot be cleared. 1 = Portion of mucosa of the colon segment seen, but other areas of the colon segment not well seen due to staining, residual stool and/or opaque liquid. 2 = Minor amount of residual staining, small fragments of stool and/or opaque liquid, but mucosa of colon segment seen well. 3 = Entire mucosa of colon segment seen well with no residual staining, small fragments of stool or opaque liquid) Impression and Post Procedure Diagnosis: internal hemorrhoids diverticular disease Plan: High fiber diet leaflet Avoid straining at stool, epsom salts and sitz bath, anusol supps or cream Repeat Colonoscopy in 10 years or earlier if clinically indicated TODAY'S VISIT: Patient is here today for follow-up. Patient reports that he has been doing well after the procedure. Denies any ill effects from the prep, anesthesia or procedure itself. Patient had no polyps. Moderate diverticulosis of sigmoid colon and small internal hemorrhoids. Patient denies any GI concerning symptoms. Reports that he has been moving his bowels well without any issues. Denies any dyspepsia, dysphagia or odynophagia. Denies melena, hematochezia, unintentional weight loss or ribbon like stools. PFSH Medical History Diverticulosis Obesity Daytime sleepiness Pulmonary hypertension History of smoking at least 1 pack per day for at least 30 years Surgical History H/O shoulder surgery History of colonoscopy History of vasectomy Family History Father Cancer Mother No problems noted. 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 Current occupational exposures/hazards: No Cognitive needs: No Hearing needs: No Vision needs: Yes (Bifocals) Review of Systems Const Denies weight gain and Denies weight loss ENT Reports no additional complaints, Denies dysphagia and Denies odynophagia Card Reports no additional complaints Resp Reports no additional complaints GI Denies abdominal pain, Denies belching, Denies melena, Denies bloating, Denies change in bowel habits, Denies dysphagia, Denies excessive flatus, Denies dyspepsia, Denies heartburn, Denies diarrhea, Denies loose stools, Denies nausea, Denies odynophagia and Denies vomiting Reports no additional complaints Musc Reports no additional complaints Neuro Reports no additional complaints Psych Reports no additional complaints Endo Reports no additional complaints Physical Exam Vital Signs: Last Vital Signs Pulse 89 08/03/23 15:14 BP 136/82 08/03/23 15:14 BMI result Body Mass Index 32.8 Const General: healthy appearing, no acute distress and well developed Nutritional Appearance: obese Orientation/consciousness: patient oriented x3 HEENT Head: Yes normal to inspection, Yes normocephalic and Yes atraumatic Face and sinus: Yes normal facial exam Mouth: Normal oral and palatal mucosa present Throat: Yes posterior oropharynx normal, Yes tonsils normal and Yes uvula midline Eyes General: appearance normal, both eyes and all related structures Neck Neck: Yes normal visual inspection, Yes full ROM and Yes trachea midline Thyroid: Thyroid normal Resp Effort & Inspection: normal respiratory effort, able to speak in complete sentences, no tracheal deviation and symmetric chest movement Auscultation: clear to auscultation bilaterally Cardio Rate: regular rate Heart sounds: S1 normal heart sound present and S2 normal heart sound present GI Inspection: Yes normal to inspection, No distended and Yes obesity Palpation (GI): Soft to palpation, not firm, nontender and No hepatosplenomegaly present Auscultation: normal bowel sounds General: Yes no CVA tenderness Back/Spine/Pelvis Back: no CVA tenderness Skin General skin exam: elasticity normal, turgor normal and dry skin Neuro General: patient oriented x3 Psych Appearance: grossly normal Mental Status: mental status grossly normal Speech and movement: Normal speech and movement present Assessment & Plan Assessment & Plan (1) Diverticulosis: Code(s): K57.90 - Diverticulosis of intestine, part unspecified, without perforation or abscess without bleeding Plan: Diagnosed with diverticulosis of sigmoid colon on colonoscopy. Discussed with patient high-fiber diet. List of food high in fiber given to patient. (2) Status post colonoscopy: Code(s): Z98.890 - Other specified postprocedural states Plan: Patient had no polyps, sigmoid colon showed moderate diverticulosis. Patient denies any ill effects from the prep, anesthesia or procedure itself. Patient will follow-up with our office on as needed basis. He is agreeable to this plan and verbalizes understanding of instructions. He was given the opportunity to ask questions and all questions answered. Thank you for allowing me to participate in his care Coding Level of Care Code Est Pt Level 3 (89525) Diagnoses Diverticulosis K57.90 Status post colonoscopy Z98.890 Time Spent (min) 25 Comment 15 minutes spent with patient and additional 10 minutes spent reviewing his records
[2023-08-03 15:14] VITALS: BP 136/82; PULSE 89; BMI 32.8
== END 2023-08-03 15:38 | disposition home or self-care (01) ==
PROVIDERS: PCP Nurse Practitioner Family; Visit Provider Nurse Practitioner Family
DX: K57.90 Diverticulosis of intestine, part unspecified, without perforation or abscess without bleeding (principal); Z98.890 Other specified postprocedural states
CPT/HCPCS: 99213

== ENCOUNTER → 2023-08-03 15:03 | Outpatient (BNVA) | payer BC, SELFPAY | PROVIDERS: PCP Nurse Practitioner Family; Visit Provider Nurse Practitioner Family ==

== ENCOUNTER 2023-08-13 14:53 | Outpatient (AMB) | payer BC, SELFPAY ==
--- NOTE | 2023-08-13 14:56 | A.OFFVIS_ITS ---
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 Pt states he went to the ER 07/23/23 for acute onset of left knee pain and swelling. The patient states that his symptoms improved significantly after taking Tylenol for several days. Today he states that the swelling and discomfort have almost completely resolved. He denies any history of gout. He denies any recent trauma. Allergies nuts Allergy (Severe, Uncoded 08/13/23 14:57) Anaphylaxis soap Adverse Reaction (Intermediate, Uncoded 08/13/23 14:57) rash Medication List - Last Reconciled 08/13/23 by Casimiro West MD albuterol sulfate 90 mcg/actuation 2 puffs PO Q4H PRN 30 days aspirin 81 mg PO DAILY 90 days cholecalciferol (vitamin D3) 25 mcg PO DAILY dupilumab 300 mg subcut Q2W epinephrine (EpiPen 2-Robby) 0.3 mg (0.3 mL) IM Q10M PRN 30 days ferrous sulfate (FeroSul) 325 mg PO DAILY hydrochlorothiazide 25 mg (2 x 12.5 mg) PO DAILY 90 days magnesium oxide 400 mg PO DAILY 90 days meloxicam 15 mg PO DAILY ropinirole 0.5 mg PO BEDTIME rosuvastatin (Crestor) 5 mg PO DAILY vitamin A 2,400 mcg PO DAILY PFSH Medical History Obesity Daytime sleepiness Pulmonary hypertension History of smoking at least 1 pack per day for at least 30 years Surgical History H/O shoulder surgery History of colonoscopy History of vasectomy Family History Father Cancer Mother No problems noted. 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 Current occupational exposures/hazards: No Cognitive needs: No Hearing needs: No Vision needs: Yes (Bifocals) Physical Exam Const Other: Well-nourished well-developed very friendly male awake alert and oriented x3 in no acute distress Extrem Other: Bilateral lower extremity examination shows good capillary refill, no skin lesions noted, normal sensation light touch Left knee examination shows a minimal effusion, minimal crepitus with range of motion, minimal discomfort with range of motion, no instability Results Reviewed Results Reviewed: X-rays of the patient's left knee show mild diffuse joint space narrowing, no acute bony abnormalities Assessment & Plan Assessment & Plan (1) Left knee pain: Code(s): M25.562 - Pain in left knee Plan: Mr. Sanchez presents with a recent history of acute left knee pain and swelling of unclear etiology. At this point the patient's symptoms have mostly resolved. We will hold off on a knee aspiration and injection. He will continue activities as tolerated. He will follow up with me on an as-needed basis should his symptoms return. Feel free to call me at any time should questions regarding his orthopedic management arise. Thank you very much for asking me to see this very gentleman. I spent 21 minutes in reviewing the patient's records and imaging studies, seeing the patient and documenting in the medical record. Coding Level of Care Code New Pt Level 2 (10246) Diagnoses Left knee pain M25.562
== END 2023-08-13 15:16 | disposition home or self-care (01) ==
PROVIDERS: PCP Nurse Practitioner Family; Visit Provider Orthopaedic Surgery
DX: M25.562 Pain in left knee (principal)
CPT/HCPCS: 99202

== ENCOUNTER → 2023-08-13 14:53 | Outpatient (BNVA) | payer BC, SELFPAY | PROVIDERS: PCP Nurse Practitioner Family; Visit Provider Orthopaedic Surgery ==

== ENCOUNTER 2023-09-21 14:48 | Outpatient (AMB) | payer BC, SELFPAY ==
--- NOTE | 2023-09-21 14:50 | MHC.PC.OV ---
Vital Signs 09/21/23 14:52 Height 6 ft Weight 253 lb BMI 34.3 BP 124/76 Blood Pressure Location Rt brachial Position Sitting Pulse 76 Pulse Source Pulse Oximeter Pulse Oximetry (%) 96 Oxygen Delivery Method Room Air Intake Visit Reasons: Review medical problems, rescheduled from 09/24 Intake Note: Patient would like to talk about an alternative for montelukast as insurance no longer covers it. Allergies nuts Allergy (Severe, Uncoded 09/21/23 16:52) Anaphylaxis soap Adverse Reaction (Intermediate, Uncoded 09/21/23 16:52) rash Medication List - Last Reconciled 09/21/23 [facility] albuterol sulfate 90 mcg/actuation 2 puffs PO Q4H PRN 30 days aspirin 81 mg PO DAILY 90 days cholecalciferol (vitamin D3) 25 mcg PO DAILY dupilumab 300 mg subcut Q2W epinephrine (EpiPen 2-Robby) 0.3 mg (0.3 mL) IM Q10M PRN 30 days ferrous sulfate (FeroSul) 325 mg PO DAILY hydrochlorothiazide 25 mg (2 x 12.5 mg) PO DAILY 90 days magnesium oxide 400 mg PO DAILY 90 days meloxicam 15 mg PO DAILY montelukast 10 mg PO BEDTIME 90 days ropinirole 0.5 mg PO BEDTIME rosuvastatin (Crestor) 5 mg PO DAILY vitamin A 2,400 mcg PO DAILY Tobacco use date assessed: 02/05/23 Fall risk assessment: No Falls in past year Last assessed Fall Risk: 09/21/23 HPI Review medical problems, rescheduled from 09/24 HPI Details Pt has a hx of asthma. He is using an inhaler for this prn, will refill. Pt will contact me if he starts using this daily or every other day. Will order PFT testing. Pt also has a hx of ascending aorta dilatation. Will repeat echo. Denies chest pain, shortness of breath, and dizziness. [facility] Medical History Refused pneumococcal vaccination Diverticulosis Obesity Daytime sleepiness Pulmonary hypertension History of smoking at least 1 pack per day for at least 30 years Surgical History H/O shoulder surgery History of colonoscopy History of vasectomy Family History Father Cancer Mother No problems noted. 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 How often do you have a drink containing alcohol?: Never 3. How often do you have six or more drinks on one occasion?: Never Total Score: 0 Score Reviewed/Action Taken: No STEPHEN-7 AMB Questionnaire STEPHEN-7 Date STEPHEN - 7 assessed: 02/05/23 Source: Developed by Drs. Mark Sierra, Deanne Vera, Kali Leo and colleagues, with an educational vik from [employer]. Review of Systems Const Reports as per HPI Physical exam (Primary Care) Vital Signs: Last Vital Signs Pulse 76 09/21/23 14:52 BP 124/76 09/21/23 14:52 Pulse Ox 96 09/21/23 14:52 Oxygen Delivery Method Room Air 09/21/23 14:52 BMI result Body Mass Index 34.3 Tobacco/Smoking Status: Tobacco use Status Tobacco use date assessed 02/05/23 09/21/23 14:51 Patient Tobacco Use Status Former Tobacco user 09/21/23 14:51 Thrive Assessment: Date of Thrive Assessment Date Thrive assessed 02/05/23 09/21/23 14:51 Const General: cooperative Nutritional Appearance: obese Orientation/consciousness: patient oriented x3 Resp Other: slight wheeze to left base Effort & Inspection: normal respiratory effort Cardio Rate: regular rate Rhythm: regular rhythm Heart sounds: S1 normal heart sound present, S2 normal heart sound present and Murmur heart sound present systolic Neuro General: patient oriented x3 Psych Appearance: grossly normal Mental Status: mental status grossly normal Speech and movement: Normal speech and movement present Affect: normal affect Attitude: cooperative Thought process: Normal thought process present Thought content: Normal thought content present Insight: Good insight present (Psych) Judgement: Good judgement present (Psych) Assessment and Plan Assessment & Plan (1) Asthma: Code(s): J45.909 - Unspecified asthma, uncomplicated Plan: PFT testing ordered (2) Ascending aorta dilation: Code(s): I77.810 - Thoracic aortic ectasia Plan: Echo ordered Plan The patient agreed to the use of a medical insurance coding specialist for this encounter. Scribed for GRANT Sahu by Jessica Jorge medical insurance coding specialist, on 09/21/2023 at 15:00 EST. Orders: Orders PFT pulmonary function test Today J45.909 - Unspecified asthma, uncomplicated CA echo transthoracic complete 4 Months I77.810 - Thoracic aortic ectasia Medications: New montelukast 10 mg PO BEDTIME 90 tabs 0RF 90 days Refilled albuterol sulfate 90 mcg/actuation 2 puffs PO Q4H PRN 8.5 grams 6RF shortness of breath or wheezing 30 days Coding Level of Care Code Est Pt Level 3 (06188) Diagnoses Asthma J45.909 Ascending aorta dilation I77.810
[2023-09-21 14:52] VITALS: BP 124/76; PULSE 76; O2SAT 96; BMI 34.3
== END 2023-09-21 15:24 | disposition home or self-care (01) ==
PROVIDERS: PCP Nurse Practitioner Family; Visit Provider Nurse Practitioner Family
DX: J45.909 Unspecified asthma, uncomplicated (principal); I77.810 Thoracic aortic ectasia
CPT/HCPCS: 99213

== ENCOUNTER 2023-10-23 15:48 | Outpatient (REF) | payer BC, SELFPAY ==
--- NOTE | 2023-10-23 16:33 | PFT_ITS ---
Indication: Asthma Spirometry [FEV1 to FVC 65%; FEV1 2.74 L which is 102% predicted; FVC 4.24 L which is 107% predicted. No significant response to bronchodilators noted. Maximum voluntary ventilation 79% predicted] Lung Volumes [Total lung capacity 86% predicted; expiratory reserve volume 11% predicted] Diffusion Capacity [DLCO 93% predicted] Comparisons [None] Interpretation [There is an obstructive ventilatory defect consistent with COPD. No significant response to bronchodilators noted. Mild decrease in maximum voluntary ventilation secondary to likely deconditioning. Lung volumes are normal except for decrease in the expiratory reserve volume secondary to the elevated BMI. Diffusing capacity is within normal limits. Clinical correlation warranted.] MTDD
== END 2023-10-23 15:49 | disposition home or self-care (01) ==
LOC: HO.RESP 15:48
PROVIDERS: PCP Nurse Practitioner Family; Visit Provider Nurse Practitioner Family
DX: J45.909 Unspecified asthma, uncomplicated (principal)
CPT/HCPCS: 94010; 94727; 94729

== ENCOUNTER → 2023-10-23 16:33 | Outpatient (BNV) | payer BC, SELFPAY | PROVIDERS: PCP Nurse Practitioner Family; Visit Provider Hospitalist | DX: J45.909 Unspecified asthma, uncomplicated (principal) | CPT/HCPCS: 94060; 94727; 94729 ==

== ENCOUNTER → 2024-01-15 14:54 | Outpatient (REF) | payer BC, SELFPAY ==
--- NOTE | 2024-01-15 14:56 | CA_ITS ---
Transthoracic Echocardiogram Patient (Last, First, Middle): River Sanchez R Gender: Male Date of : 1960 Age: 63 Procedure Date: 01/15/2024 Procedure Type: Transthoracic Echocardiogram Location: OP Height: 182.88 cm Weight: 114.76 kg BSA: 2.35 m2 Heart Rate: 66 bpm BP: 138 / 76 mmHg Research Mechanic: SB Referring MD: Lul Mederos [facility] Symptoms: I77.810 - Thoracic aortic ectasia Study Quality: Adequate ECG Rhythm: Sinus Conclusions: - The left ventricular systolic function is normal. The calculated ejection fraction is 64% by biplane method. - No obvious valvular pathology seen on this study. - There is mild dilatation of the ascending aorta measuring 4.10 cm. Findings Left Ventricle Normal left ventricular cavity size. The left ventricular systolic function is normal. The calculated ejection fraction is 64% by biplane method. There is no evidence of regional wall motion abnormalities. Diastolic function is normal for age. There is mild septal asymmetric hypertrophy. LV peak GLS 19.4%. Right Ventricle Mildly increased right ventricular cavity size. Atria The left atrium is normal in size. The right atrium is mildly dilated. Aortic Valve There is a normal trileaflet aortic valve. There is no aortic valve stenosis. There is trace (trivial) aortic valve regurgitation. Mitral Valve The mitral valve appears normal. There is no mitral valve regurgitation. There is no mitral valve stenosis. Pulmonic Valve The pulmonic valve is likely normal. Tricuspid Valve Normal tricuspid valve structure. There is trace tricuspid valve regurgitation. There is no evidence of pulmonary hypertension. Great Vessels There is mild dilatation of the ascending aorta measuring 4.10 cm. Venous The inferior vena cava is normal in size and collapses greater than 50% with inspiration. Pericardium/Pleural There is no evidence of pericardial effusion. Prior Study Comparison No significant change compared to prior study dated: 02/12/2023. Increase in ascending aortic size. Recommendations, Care & Conclusions No obvious valvular pathology seen on this study. Measurements 2D Linear Measurements IVSd: 1.26 0.6-0.9/0.6-1.0 cm LVIDd: 5.10 3.9-5.3/4.2-5.9 cm LVIDd Index: 2.17 2.4-3.2/2.2-3.1 cm/m2 LVIDs: 3.35 2.0-3.6 cm LVPWd: 0.81 0.7-1.1 cm LA Diam: 3.70 2.7-3.8/3.0-4.0 cm LAIDs Index: 1.57 1.5-2.3 cm/m2 LV Mass: 245.55 67-162/88-224 g LV Mass Index: 104.49 43-95/49-115 g/m2 LVOT Diam: 2.40 3.0+(-)1.3 cm 2D Systolic Function EF 4C: 68.20 >55% EF 2C: 58.50 >55% EF BiP: 63.90 >55% Mitral Valve MV Pk E: 0.91 MV PK A: 0.92 MV Decel Time: 225.00 E/A: 1.00 E'Lateral: 8.16 E'Medial: 7.94 E/E' Med: 11.40 E/E' Lat: 11.10 PHT: 66.00 MVA PHT: 3.33 Decel Mineral: 4.04 Aortic Valve AoV Pk Jovany: 1.62 AoV Pk Grad: 10.00 DI: 4.87 LVOT LVOT Pk Jovany: 1.62 LVOT Mn Jovany: 0.99 LVOT VTI: 0.31 LVOT Pk Grad: 10.00 LVOT Mn Grad: 5.00 LVOT Diam: 2.40 LVOT Area: 4.52 Diastolic Function MV Pk E: 0.91 MV Pk A: 0.92 E/A: 1.00 E'Medial: 7.94 E/E' Med: 11.40 E' Laterial: 8.16 E/E' Lat: 11.10 Right Ventricle TAPSE (mm): 23.40 TVS' Jovany: 16.00 Tricuspid Valve TR Pk Jovany: 2.36 TR Pk Grad: 22.00 RA Press: 3.00 RVSP: 25.00 Great Vessels Aorta Sinus of Valsalva: 4.10 2.0-3.5 cm Ao Asc: 4.10 2.1-3.4 cm Pulmonary Veins Pulm Vein S/D 1.20 Pulmonary Valve PV Pk Jovany: 0.95 Peak PV Grad: 4.00 Updated in Other Vendor System with Status of Final Duc Granado MD electronically signed on 01/16/2024 10:50:32 AM with status of Final
== END ==
LOC: HO.CARD 14:54
PROVIDERS: PCP Nurse Practitioner Family; Visit Provider Nurse Practitioner Family
DX: I77.810 Thoracic aortic ectasia (principal)
CPT/HCPCS: 93306; 93356

== ENCOUNTER → 2024-01-15 14:56 | Outpatient (BNV) | payer BC, SELFPAY | PROVIDERS: PCP Nurse Practitioner Family; Visit Provider Internal Medicine | DX: I77.810 Thoracic aortic ectasia (principal) | CPT/HCPCS: 93306 ==

== ENCOUNTER 2024-02-11 16:29 | Outpatient (AMB) | payer BC, SELFPAY ==
--- NOTE | 2024-02-11 16:33 | A.OFFPC_ITS ---
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 Required: No Accompanied by: Self / Same As Patient Allergies nuts Allergy (Severe, Uncoded 02/11/24 17:41) Anaphylaxis soap Adverse Reaction (Intermediate, Uncoded 02/11/24 17:41) rash Medication List - Last Reconciled 02/11/24 by Lul Mederos [facility]- albuterol sulfate 90 mcg/actuation 2 puffs PO Q4H PRN 30 days aspirin 81 mg PO DAILY 90 days cholecalciferol (vitamin D3) 25 mcg PO DAILY dupilumab 300 mg subcut Q2W epinephrine (EpiPen 2-Robby) 0.3 mg (0.3 mL) IM Q10M PRN 30 days ferrous sulfate (FeroSul) 325 mg PO DAILY hydrochlorothiazide 25 mg (2 x 12.5 mg) PO DAILY 90 days losartan 25 mg PO DAILY 90 days magnesium oxide 400 mg PO DAILY 90 days meloxicam 15 mg PO DAILY montelukast 10 mg PO BEDTIME 90 days ropinirole 0.5 mg PO BEDTIME rosuvastatin (Crestor) 5 mg PO DAILY vitamin A 2,400 mcg PO DAILY Tobacco use date assessed: 02/11/24 Fall risk assessment: No Falls in past year Last assessed Fall Risk: 02/11/24 Dental Screening Dental Screen Date: 02/11/24 Did you have a dental visit in the last 12 months?: No Did you have a dental problem in the last 6 months where you did not have access to dental care?: No Was dental information given to patient?: Patient declined HPI Annual PE HPI Details Pt is here for a PE. Will order labs. Colon screen is up to date. Due for PSA, will order. Denies dribbling with urination, weak stream, and frequent nocturia. HTN: Pt's blood pressure is elevated today, managed with hydrochlorothiazide 25mg. Will add losartan 25mg. Will have pt drop off blood pressures in the near future. 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 Denies chest pain, shortness of breath, headache, dizziness, and blurred vision. Pt c/o intermi ttent insomnia. He takes benadryl for this. Will have pt stop this and will send trazodone. Pt has some edema and discoloration to his BLE. I want to order vascular testing, but pt would like to wait as his insurance is changing. [facility] Medical History Refused pneumococcal vaccination Diverticulosis Obesity Daytime sleepiness Pulmonary hypertension History of smoking at least 1 pack per day for at least 30 years Surgical History H/O shoulder surgery History of colonoscopy History of vasectomy Family History Father Cancer Mother No problems noted. 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 1. Little interest or pleasure in doing things: not at all 2. Feeling down, depressed, or hopeless: not at all 3. Trouble falling or staying asleep, or sleeping too much: not at all 4. Feeling tired or having little energy: not at all 5. Poor appetite or overeating: not at all 6. Feeling bad about yourself - or that you are a failure or have let yourself or your family down: not at all 7. Trouble concentrating on things, such as reading the newspaper or watching television: not at all 8. Moving or speaking so slowly that other people could have noticed. Or the opposite - being so fidgety or restless that you have been moving around a lot more than usual: not at all 9. Thoughts that you would be better off or of hurting yourself in some way: not at all Total score: 0 Depression Screening Interpretation: Negative Depression Screening Done: Yes 34069 - PHQ-9 Billing: Yes Source: Developed by Drs. Deanne Rojas Kurt Kroenke and colleagues, with an educational vik from [employer]. Thrive Questionnaire Date Thrive assessed: 02/05/23 I am a: Patient What is your living situation today?: I have a steady place to live Within the past 12 months, did the food you bought not last and you didn't have the money to get more?: Never true Within the past 12 months, did you worry whether your food would run out before you got money to buy more?: Never true Do you have trouble paying for medicines?: No Do you have trouble getting transportation to medical appointments?: No Do you have trouble paying your heating and electricity bill?: No Do you have trouble taking care of your child, family member or friend?: No Do you have trouble with day-to-day activities such as bathing, preparing meals, shopping, managing finances, etc.?: No Are you currently unemployed and looking for a job?: No Are you interested in more education?: No Please select the resources that you would like help with: None Currently or been in a relationship where the following occur: no concerns reported THRIVE Score: 0 AUDIT C Alcohol Use Questionnaire (AUDIT-C) 1. How often do you have a drink containing alcohol?: Never 3. How often do you have six or more drinks on one occasion?: Never Total Score: 0 Score Reviewed/Action Taken: Yes STEPHEN-7 AMB Questionnaire STEPHEN-7 Date STEPHEN - 7 assessed: 02/11/24 Feeling nervous, anxious, or on edge: 0 = Not at all Not being able to stop or control worryin = Not at all Worrying too much about different things: 0 = Not at all Trouble relaxin = Not at all Being so restless that it is hard to sit still: 0 = Not at all Becoming easily annoyed or irritable: 0 = Not at all Feeling afraid as if something awful might happen: 0 = Not at all Total STEPHEN-7 score (0-4 normal; 5-9 mild; 10-14 moderate; 15-21 severe): 0 Source: Developed by Deanne Trevizo Kurt Kroenke and colleagues, with an educational vik from [employer]. STEPHEN-7 Assessment Billing STEPHEN-7 Assessment Tool: STEPHEN-7 Assessment 88674 Review of Systems Const Denies chills and Denies fever(s) Eyes Denies blurry vision ENT Denies vertigo, Denies dizziness and Denies sore throat Card Denies chest pain at rest, Denies chest pain with activity, Denies diaphoresis, Denies dyspnea and Denies dyspnea on exertion Resp Denies cough, Denies dyspnea, Denies dyspnea on exertion and Denies wheezing GI Denies abdominal pain, Denies melena, Denies hematochezia, Denies constipation, Denies diarrhea and Denies loose stools Denies hematuria Musc Denies numbness and Denies tingling Skin/Breast Denies lesions Neuro Denies vertigo, Denies dizziness, Denies numbness and Denies tingling Psych Denies anxiety, Denies depression, Denies homicidal ideation, Denies suicidal ideation and Denies other (substance abuse) Aller/Immun Denies wheezing Physical exam (Primary Care) Vital Signs: Last Vital Signs Pulse 78 02/11/24 16:34 BP 140/80 H 02/11/24 16:34 Pulse Ox 98 02/11/24 16:34 Oxygen Delivery Method Room Air 02/11/24 16:34 BMI result Body Mass Index 34.6 Tobacco/Smoking Status: Tobacco use Status Tobacco use date assessed 02/11/24 02/11/24 16:40 Patient Tobacco Use Status Former Tobacco user 02/11/24 16:40 PHQ-9: PHQ-9 Score PHQ-9: Total score 0 02/11/24 16:40 Depression Screening Interpretation: Negative Thrive Assessment: Date of Thrive Assessment Date Thrive assessed 02/05/23 02/11/24 16:40 Currently or been in a relationship where the following occur: no concerns reported Const General: cooperative Nutritional Appearance: obese Orientation/consciousness: patient oriented x3 HENMT Head: Yes normal to inspection, Yes normocephalic and Yes atraumatic Ears: TM's normal bilaterally Eyes General: appearance normal, both eyes and all related structures Alignment and Position: alignment normal and position normal Neck Neck: Yes normal visual inspection and Yes no lymphadenopathy Thyroid: Thyroid normal Resp Effort & Inspection: normal respiratory effort Auscultation: clear to auscultation bilaterally Cardio Rate: regular rate Rhythm: regular rhythm Heart sounds: S1 normal heart sound present, S2 normal heart sound present and no murmurs GI Palpation (GI): Soft to palpation and nontender Auscultation: normal bowel sounds Male General Exam: Yes normal external exam Penis: normal penis Scrotum: scrotum normal, testes descended bilaterally and no inguinal hernias Testes: no testicular mass Skin Rashes: no rashes Neuro General: patient oriented x3, moves all extremities, no focal motor deficits and deep tendon reflexes 2+ bilaterally Romberg Test: Negative Extrem Other: +1 pitting edema to BLE, discoloration, + dorsalis pedis pulses Psych Appearance: grossly normal Mental Status: mental status grossly normal Speech and movement: Normal speech and movement present Affect: normal affect Attitude: cooperative Thought process: Normal thought process present Thought content: Normal thought content present Insight: Good insight present (Psych) Judgement: Good judgement present (Psych) Assessment and Plan Assessment & Plan (1) Screening PSA (prostate specific antigen): Code(s): Z12.5 - Encounter for screening for malignant neoplasm of prostate (2) Physical exam: Code(s): Z00.00 - Encounter for general adult medical examination without abnormal findings Plan The patient agreed to the use of a medical transcription editor for this encounter. Scribed for GRANT Sahu by Jessica Jorge medical transcription editor, on 02/11/2024 at 16:40 EST. Medications: New losartan 25 mg PO DAILY 90 days 90 tabs 2RF trazodone 50 mg PO BEDTIME 90 days PRN 90 tabs 0RF sleep Coding Level of Care Code Est Pt Prev Care >65y(02435) Diagnoses Screening PSA (prostate specific antigen) Z12.5 Physical exam Z00.00 Additional Codes STEPHEN-7 Assessment Billing - STEPHEN-7 Assessment Tool: STEPHEN-7 Assessment 79929 ([id number])
[2024-02-11 16:34] VITALS: BP 140/80; PULSE 78; O2SAT 98; BMI 34.6
== END 2024-02-11 17:04 | disposition home or self-care (01) ==
PROVIDERS: Visit Provider Nurse Practitioner Family
DX: Z12.5 Encounter for screening for malignant neoplasm of prostate (principal); Z00.00 Encounter for general adult medical examination without abnormal findings
CPT/HCPCS: 99397

== ENCOUNTER 2024-09-06 11:19 | Outpatient (REF) | payer MEDICARE, SELFPAY ==
[2024-09-06 13:11] LABS: MANUAL DIFF FLAG NO
[2024-09-06 13:34] LABS: Basophils Absolute Auto 0.1 X10*3/uL (0.0-0.2); Basophils Percent Auto 1.5 % (0-2); Eosinophils Absolute Auto 0.6 X10*3/uL (0.0-0.4); Eosinophils Percent Auto 7.3 % (0-4); Hematocrit 42.7 % (42.0-52.0); Hemoglobin 13.9 g/dl (14.0-18.0); Imm Gran Abs Auto 0.03 X10*3/uL (0.00-0.03); Imm Gran Pct Auto 0.4 % (0.0-0.4); Lymphocytes Absolute Auto 2.1 X10*3/uL (1.2-4.9); Lymphocytes Percent Auto 28.2 % (20-40); Mean Corpuscular HGB Conc 32.6 g/dl (31.0-36.0); Mean Corpuscular Volume 95.1 fL (80.0-98.0); Mean Platelet Volume 10.6 fL (9.4-12.4); Monocytes Absolute Auto 0.9 X10*3/uL (0.1-1.2); Monocytes Percent Auto 12.4 % (2-11); Neutrophils Absolute Auto 3.8 x10*3/uL (2.0-8.3); Neutrophils Percent Auto 50.2 % (45-73); Platelet Count 307 X10*3/uL (160-400); Red Blood Count 4.49 X10*6/uL (4.60-5.80); White Blood Count 7.6 X10*3/uL (4.8-10.8)
[2024-09-06 13:39] LABS: Appearance Urine Clear; Color Urine Dark Yellow; Glucose Urine UA Negative (Negative); Leukocyte Esterase Urine Negative (Negative); Nitrite Urine Negative (Negative); PH 5.5 (5.0-9.0); Specific Gravity - Urine >= 1.030 (1.005-1.025); Urine Blood Negative (Negative); Urine Ketones Negative (Negative); Urine Protein Trace mg/dL (Neg-Trace)
[2024-09-06 13:43] LABS: Alanine Aminotransferase 31 U/L (0-40); Albumin Level 4.2 g/dL (3.5-5.0); Alkaline Phosphatase 84 U/L (39-117); Anion Gap 12 (12-20); Aspartate Amino Transferase 39 U/L (5-37); Bilirubin Total 0.5 mg/dL (0.0-1.0); Blood Urea Nitrogen 25 mg/dL (9-16); Calcium 10.1 mg/dL (8.4-10.2); Carbon Dioxide 29 mmol/L (22-29); Chloride 104 mmol/L (96-108); Cholesterol 198 mg/dL (<200); Estimated Glomerular Filt Rate 48; Glucose Fasting 117 mg/dL (60-99); HDL Cholesterol 34 mg/dL (>40); LDL Cholesterol Calculated 120 mg/dL (<100); Sodium 141 mmol/L (135-145); Total Protein 7.6 g/dL (6.5-8.0); Triglycerides 222 mg/dL (<150)
[2024-09-06 13:56] LABS: Prostate Specific Antigen Scr 1.18 ng/mL (<0.05-4.0)
[2024-09-06 14:08] LABS: TSH reflex Free T4 1.79 uIU/mL (0.32-4.0)
== END 2024-09-06 11:20 | disposition home or self-care (01) ==
LOC: HO.HMGCLDS 11:19
PROVIDERS: PCP Nurse Practitioner Family; Visit Provider Nurse Practitioner Family
DX: Z00.00 Encounter for general adult medical examination without abnormal findings (principal); Z12.5 Encounter for screening for malignant neoplasm of prostate; R79.89 Other specified abnormal findings of blood chemistry
CPT/HCPCS: 36415; 80053; 80061; 81003; 84153; 84443; 85025

== ENCOUNTER 2024-12-21 15:07 | Outpatient (AMB) | payer MEDICARE, SELFPAY ==
[2024-12-21 15:13] VITALS: BP 120/74; PULSE 84; RESP 20; TEMP 37; O2SAT 97; BMI 37.7
--- NOTE | 2024-12-21 15:13 | MHC.PC.OV ---
Vital Signs 12/21/24 15:13 Height 6 ft Weight 278 lb BMI 37.7 BP 120/74 Blood Pressure Location Rt brachial Position Sitting Respiration 20 Pulse 84 Pulse Source Pulse Oximeter Temp 98.6 F Temp Source Oral Pulse Oximetry (%) 97 Intake Visit Reasons: follow up Allergies nuts Allergy (Severe, Uncoded 12/21/24 15:17) Anaphylaxis soap Adverse Reaction (Intermediate, Uncoded 12/21/24 15:17) rash Medication List - Last Reconciled 12/21/24 by Lul Mederos [facility] albuterol sulfate 90 mcg/actuation 2 puffs PO Q4H PRN 30 days aspirin 81 mg PO DAILY 90 days cholecalciferol (vitamin D3) 25 mcg PO DAILY dupilumab 300 mg subcut Q2W epinephrine (EpiPen 2-Robby) 0.3 mg (0.3 mL) IM Q10M PRN 30 days ferrous sulfate (FeroSul) 325 mg PO DAILY hydrochlorothiazide 25 mg (2 x 12.5 mg) PO DAILY 90 days losartan 25 mg PO DAILY 90 days magnesium oxide 400 mg PO DAILY 90 days meloxicam 15 mg PO DAILY montelukast 10 mg PO BEDTIME ropinirole 0.5 mg PO BEDTIME rosuvastatin (Crestor) 5 mg PO DAILY trazodone 50 mg PO BEDTIME PRN 90 days vitamin A 2,400 mcg PO DAILY Tobacco use date assessed: 12/21/24 Fall risk assessment: No Falls in past year Last assessed Fall Risk: 12/21/24 Dental Screening Dental Screen Date: 12/21/24 Did you have a dental visit in the last 12 months?: No Did you have a dental problem in the last 6 months where you did not have access to dental care?: No Was dental information given to patient?: Patient declined HPI follow up HPI Details Chief Complaint Follow-up for hypertension. History of Present Illness The patient is a 64-year-old male presenting with a follow-up appointment for hypertension. He reports that his blood pressure condition is currently stable. However, since [facility], the patient has been more sedentary, which has resulted in some weight gain. He indicates a plan to increase physical activity with the improvement in weather conditions. There have been no acute exacerbations or symptoms associated with his hypertension, such as chest pain, shortness of breath, headache, or blurred vision. The emphasis is placed on increasing activity levels and continuing to monitor diet and exercise to manage both blood pressure and weight. Insomnia: trazodone gave him bad dreams, will try belsomra. Social History - [facility] Care has led to increased sedentary behavior. - Plans to increase physical activity with favorable weather conditions. Health Maintenance - Emphasized the importance of diet and exercise for weight management and hypertension control. Review of Systems - Cardiovascular: Denies chest pain. - Respiratory: Denies shortness of breath. - Neurological: Denies headache, denies blurred vision. Physical Exam General: Cooperative, healthy appearing, comfortable, no acute distress and well developed, obese Orientation: Patient oriented x3 Limitations: No limitations Head: Normal to inspection Ears: Hearing grossly normal bilaterally Nose: Normal external nose present Face and sinus: Normal facial exam Eyes: Appearance normal, both eyes and all related structures Neck: Normal visual inspection and Yes full ROM Respiratory: Normal respiratory effort and able to speak in complete sentences. Clear to auscultation bilaterally Cardiovascular: Faint systolic murmur. Normal S1 and S2 GI: Normal to inspection. Soft to palpation and nontender Skin: No rashes or lesions noted Neuro: Patient oriented x3 Extremities: Normal to inspection Results Plan - Monitor hypertension and encourage dietary modifications and increased physical activity to manage weight. - Continue regular follow-up appointments to assess blood pressure control and weight management strategies. Discussion Notes During our discussion, I reinforced the importance of maintaining a healthy lifestyle, specifically highlighting diet and exercise as critical components in managing both hypertension and recent weight gain. We talked about increasing physical activity, especially with the improving weather, to help in maintaining blood pressure levels and reducing weight. The patient expressed understanding of the importance of these lifestyle changes. Patient Instructions - Increase physical activity as much as possible, leveraging good weather. - Focus on a balanced diet to aid in managing blood pressure and weight. - Maintain regular follow-up visits to monitor blood pressure and discuss weight management. [facility] Medical History Refused pneumococcal vaccination Diverticulosis Obesity Daytime sleepiness Pulmonary hypertension History of smoking at least 1 pack per day for at least 30 years Surgical History H/O shoulder surgery History of colonoscopy History of vasectomy Family History Father Cancer Mother No problems noted. 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 1. Little interest or pleasure in doing things: not at all 2. Feeling down, depressed, or hopeless: not at all 3. Trouble falling or staying asleep, or sleeping too much: not at all 4. Feeling tired or having little energy: not at all 5. Poor appetite or overeating: not at all 6. Feeling bad about yourself - or that you are a failure or have let yourself or your family down: not at all 7. Trouble concentrating on things, such as reading the newspaper or watching television: not at all 8. Moving or speaking so slowly that other people could have noticed. Or the opposite - being so fidgety or restless that you have been moving around a lot more than usual: not at all 9. Thoughts that you would be better off or of hurting yourself in some way: not at all Total score: 0 Depression Screening Interpretation: Negative Depression Screening Done: Yes 67124 - PHQ-9 Billing: Yes Source: Developed by Drs. Mark Sierra, Deanne Vera, Kali Leo and colleagues, with an educational vik from [employer]. Thrive Questionnaire Date Thrive assessed: 12/21/24 I am a: Patient What is your living situation today?: I have a steady place to live Within the past 12 months, did the food you bought not last and you didn't have the money to get more?: Never true Within the past 12 months, did you worry whether your food would run out before you got money to buy more?: Never true Do you have trouble paying for medicines?: No Do you have trouble getting transportation to medical appointments?: No Do you have trouble paying your heating and electricity bill?: No Do you have trouble taking care of your child, family member or friend?: No Do you have trouble with day-to-day activities such as bathing, preparing meals, shopping, managing finances, etc.?: No Are you currently unemployed and looking for a job?: No Are you interested in more education?: No Please select the resources that you would like help with: None THRIVE Score: 0 AUDIT C Alcohol Use Questionnaire (AUDIT-C) 1. How often do you have a drink containing alcohol?: Monthly or less 2. How many drinks containing alcohol do you have on a typical day when you are drinking?: 1 or 2 3. How often do you have six or more drinks on one occasion?: Never Total Score: 1 STEPHEN-7 AMB Questionnaire STEPHEN-7 Date STEPHEN - 7 assessed: 12/21/24 Feeling nervous, anxious, or on edge: 0 = Not at all Not being able to stop or control worryin = Not at all Worrying too much about different things: 0 = Not at all Trouble relaxin = Not at all Being so restless that it is hard to sit still: 0 = Not at all Becoming easily annoyed or irritable: 0 = Not at all Feeling afraid as if something awful might happen: 0 = Not at all Total STEPHEN-7 score (0-4 normal; 5-9 mild; 10-14 moderate; 15-21 severe): 0 Source: Developed by Drs. Mark Sierra, Deanne Vera, Kali Leo and colleagues, with an educational vik from [employer]. STEPHEN-7 Assessment Billing STEPHEN-7 Assessment Tool: STEPHEN-7 Assessment 43714 Physical exam (Primary Care) Vital Signs: Last Vital Signs Temp 98.6 F 12/21/24 15:13 Pulse 84 12/21/24 15:13 Resp 20 12/21/24 15:13 BP 120/74 12/21/24 15:13 Pulse Ox 97 12/21/24 15:13 BMI result Body Mass Index 37.7 Tobacco/Smoking Status: Tobacco use Status Tobacco use date assessed 12/21/24 12/21/24 15:19 Patient Tobacco Use Status Former Tobacco user 12/21/24 15:15 e-Cigarette/Vaping Use Never Used 12/21/24 15:19 PHQ-9: PHQ-9 Score PHQ-9: Total score 0 12/21/24 15:28 Depression Screening Interpretation: Negative Thrive Assessment: Date of Thrive Assessment Date Thrive assessed 12/21/24 12/21/24 15:19 Coding Level of Care Code Est Pt Level 3 (39579) Diagnoses HTN (hypertension) I10 Obesity E66.9 Chronic insomnia F51.04 Additional Codes STEPHEN-7 Assessment Billing - STEPHEN-7 Assessment Tool: STEPHEN-7 Assessment [id number] ([id number]) PHQ-9 - 19723 - PHQ-9 Billing: Yes ([id number]) Assessment & Plan Assessment & Plan (1) HTN (hypertension): Code(s): I10 - Essential (primary) hypertension Category: Medical (2) Obesity: Code(s): E66.9 - Obesity, unspecified Category: Medical (3) Chronic insomnia: Code(s): F51.04 - Psychophysiologic insomnia Category: Medical Plan . Orders: Orders UA CC w/rflx Micro + Cult Today E66.9 - Obesity, unspecified, I10 - Essential (primary) hypertension Lipid Panel Today E66.9 - Obesity, unspecified, I10 - Essential (primary) hypertension Complete Blood Count Auto Diff Today E66.9 - Obesity, unspecified, I10 - Essential (primary) hypertension Comprehensive [place]. Panel Fast Today E66.9 - Obesity, unspecified, I10 - Essential (primary) hypertension TSH reflex Free T4 Today E66.9 - Obesity, unspecified, I10 - Essential (primary) hypertension Medications: New suvorexant (Belsomra) 5 mg PO BEDTIME 30 tabs 2RF 30 days Discontinued trazodone Discontinued Reason: Doctor's Order 50 mg PO BEDTIME 90 days PRN 90 tabs 0RF sleep
--- OUTSIDE RECORDS SUMMARY | 2024-12-21 16:08 | XMS_ITS | Encounter Summary ---
Author Organization [facility] Address [address] [place] [address] Care Team Providers Care Cake Press Operator Name Role Phone Unavailable Primary Care Provider Unavailabl e Encounter Details Date Type Department Care Team (Late st Contact Info) Description 09/29/2024 Lab Requisition [facility] - Main Lab 299 [facility] [place] [address] Eula Baires MD [address] [place] [address] Dr [place] ISAAC [id number] Tinea pedis; Local infection of the skin and subcutaneous tissue, unspecified; Other atopic dermatitis Social History Tobacco Use Types Packs/Day Years Used Date Smoking Tobacco: Never Assessed Sex and Gender Information Value Date Recorded Sex Assigned at Not on file Gender Identity Not on file Sexual Orientation Not on file documented as of this encounter Plan of Treatment Not on file documented as of this encounter Procedures Procedure Name Priority Date/Time Associated Diagnosis Comments ..ORGANISM IDENTIFICATION YEAST RESULT Routine 09/29/2024 12:00 AM EST Tinea pedis Local infection of the skin and subcutaneous tissue, unspecified Other atopic dermatitis ..ORGANISM ID ([facility] BILL ONLY) Routine 09/29/2024 12:00 AM EST Tinea pedis Local infection of the skin and subcutaneous tissue, unspecified Other atopic dermatitis ..ORGANISM IDENTIFICATION, MOLD RESULT Routine 09/29/2024 12:00 AM EST Tinea pedis Local infection of the skin and subcutaneous tissue, unspecified Other atopic dermatitis FUNGAL IDENTIFICATION, MOLD Routine 09/29/2024 12:00 AM EST Tinea pedis Local infection of the skin and subcutaneous tissue, unspecified Other atopic dermatitis FUNGAL IDENTIFICATION, YEAST Routine 09/29/2024 12:00 AM EST Tinea pedis Local infection of the skin and subcutaneous tissue, unspecified Other atopic dermatitis CULTURE FUNGAL, OTHER Routine 09/29/2024 12:00 AM EST Tinea pedis Local infection of the skin and subcutaneous tissue, unspecified Other atopic dermatitis documented in this encounter Results * Organism identification, mold result (09/29/2024 12:00 AM EST) Result 1 Comment 10/27/2024 2:05 PM EST [facility] Comment:TRICHOPHYTON VIOLACE UM/RUBRUM Other Topography unknown / Unknown 09/29/2024 10/17/2024 12:17 PM EST Narrative [facility] - 10/27/2024 2:05 PM EST Performed at: ??01 - [facility] [address] ??[id number] Substation Operator Helper Generation: Luisana Padilla MD, Phone: ??[phone] Eula Baires MD LAB MICROBIOLOGY - G ENERAL ORDERABLES Performing Organization Address City/[facility]/ZIP Co de Phone Number [facility] * Organism ID ([facility] Bill Only) (09/29/2024 12:00 AM EST) Organism ID Performed 10/21/2024 6:05 PM EST [facility] Other Venous blood specimen / Unknown 09/29/2024 10/18/2024 11:21 AM EST Narrative [facility] - 10/21/2024 6:05 PM EST Performed at: ??02 - [facility] [address], [place], [place] ??[id number] Substation Operator Helper Generation: Arik Wilks MD, Phone: ??[phone] Eula Baires MD LAB MICROBIOLOGY - G ENERAL ORDERABLES Performing Organization Address City/[facility]/ZIP Co de Phone Number [facility] * (ABNORMAL) Organism identification yeast (09/29/2024 12:00 AM EST) Result 1 Malassezia pachydermatis(A ) 10/21/2024 6:05 PM EST [facility] Other 09/29/2024 10/18/2024 11: 21 AM EST Narrative [facility] - 10/21/2024 6:05 PM EST Performed at: ??01 - [facility] [address] ??[id number] Substation Operator Helper Generation: Luisana Padilla MD, Phone: ??[phone] Eula Baires MD LAB MICROBIOLOGY - G ENERAL ORDERABLES [facility] * (ABNORMAL) Fungal identification, yeast (09/29/2024 12:00 AM EST) Organism Identification , Yeast Final report(A) 10/21/2024 6:05 PM EST [facility] Other 09/29/2024 10/18/2024 11: 21 AM EST Narrative [facility] - 10/21/2024 6:05 PM EST Performed at: ??01 - [facility] [address] ??[id number] Substation Operator Helper Generation: Luisana Padilla MD, Phone: ??[phone] Eula Baires MD LAB MICROBIOLOGY - G ENERAL ORDERABLES [facility] * Fungal identification, mold (09/29/2024 12:00 AM EST) Organism Identification , Mold Final report 10/27/2024 2:05 PM EST [facility] Other Topography unknown / Unknown 09/29/2024 10/17/2024 12:17 PM EST Narrative [facility] - 10/27/2024 2:05 PM EST Performed at: ??01 - [facility] [address] ??[id number] Substation Operator Helper Generation: Luisana Padilla MD, Phone: ??[phone] Eula Baires MD LAB MICROBIOLOGY - G ENERAL ORDERABLES [facility] * (ABNORMAL) Culture fungal, other (09/29/2024 12:00 AM EST) Culture, Fungus Yeast(A) DONNA 11/14/2024 2:58 PM EST [facility] Comment: Sent to reference lab for identification. For results refer to specimen [id number] The organism value for this result has been updated. These results have been appended to the previously preliminary verified report. Culture, Fungus Mold(A) DONNA 11/14/2024 2:58 PM EST [facility] Comment: Sent to reference lab. For results refer to specimen ??[id number] The organism value for this result has been updated. These results have been appended to the previously preliminary verified report. Skin 09/29/2024 09/29/2024 6:3 3 PM EST Eula Baires MD LAB MICROBIOLOGY - G ENERAL ORDERABLES Performing Organization Address [facility] Co de Phone Number [facility] [address] [place] [address], documented in this encounter Visit Diagnoses Diagnosis Tinea pedis Dermatophytosis of foot Local infection of the skin and subcutaneous tissue, unspecified Other atopic dermatitis documented in this encounter
--- OUTSIDE RECORDS SUMMARY | 2024-12-21 16:08 | XMS_ITS | Clinical Summary ---
Author Organization 299 [facility] Address [address] [place] [address] Phone Care Team Providers Care Automotive Collision Estimator Name Role Phone Unavailable Primary Care Provider Unavailabl e Encounters Date Type Department Care Team Description 09/29/2024 Lab Requisition [facility] - Main Lab [address] [place] [address] Eula Baires MD Tinea pedis; Local infection of the skin and subcutaneous tissue, unspecified; Other atopic dermatitis from Last 3 Months Social History Tobacco Use Types Packs/Day Years Used Date Smoking Tobacco: Never Assessed Sex and Gender Information Value Date Recorded Sex Assigned at Not on file Gender Identity Not on file Sexual Orientation Not on file Plan of Treatment Health Maintenance Due Date Last Done Comments DTaP,Tdap,and Td Vaccines (1 - Tdap) 1977 Zoster Vaccines (1 of 2) 2008 Pneumococcal Vaccine: 65+ Ye ars (1 of 1 - PCV) 2023 COVID-19 Vaccine ( - 2023-2 5 season) 2024 Influenza Vaccine (#1) 2024 Abdominal Aortic Aneurysm (A AA) Screen 09/30/2024 Cholesterol Screening (Lipid Panel) 09/30/2024 Colorectal Cancer Screening: Colonoscopy 09/30/2024 Depression Screening 09/30/2024 Falls Risk Assessment 09/30/2024 Hepatitis C Screening 09/30/2024 Medicare Annual Wellness Visit 09/30/2024 Social Influencers of Health Screening 09/30/2024 RSV Immunization Patients 60 + Years Old (1 - 1-dose 75+ series) 2033 HIB Vaccines Aged Out No longer eligi ble based on patient's age to complete this topic HPV Vaccines Aged Out No longer eligi ble based on patient's age to complete this topic Hepatitis A Vaccines Aged Out No long er eligible based on patient's age to complete this topic Hepatitis B Vaccines Aged Out No long er eligible based on patient's age to complete this topic IPV Vaccines Aged Out No longer eligi ble based on patient's age to complete this topic MMR Vaccines Aged Out No longer eligi ble based on patient's age to complete this topic Meningococcal ACWY Vaccine Aged Out N o longer eligible based on patient's age to complete this topic RSV Immunization Patients Un donna 20 months Aged Out No longer eligible b ased on patient's age to complete this topic Varicella Vaccines Aged Out No longer eligible based on patient's age to complete this topic Procedures Procedure Name Priority Date/Time Associated Diagnosis Comments ..ORGANISM IDENTIFICATION, MOLD RESULT Routine 09/29/2024 12:00 AM EST Tinea pedis Local infection of the skin and subcutaneous tissue, unspecified Other atopic dermatitis ..ORGANISM ID ([facility] BILL ONLY) Routine 09/29/2024 12:00 AM EST Tinea pedis Local infection of the skin and subcutaneous tissue, unspecified Other atopic dermatitis ..ORGANISM IDENTIFICATION YEAST RESULT Routine 09/29/2024 12:00 [...] and subcutaneous tissue, unspecified Other atopic dermatitis from Last 3 Months Results * (ABNORMAL) Organism identification yeast (09/29/2024 12:00 AM EST) Result 1 Malassezia pachydermatis(A ) 10/21/2024 6:05 PM EST [facility] Other 09/29/2024 10/18/2024 11: 21 AM EST Narrative [facility] - 10/21/2024 6:05 PM EST Performed at: ??01 - [facility] [address] [place], [place] ??[id number] Gravel Truck Driver: Luisana Padilla MD, Phone: ??[phone] Eula Baires MD LAB MICROBIOLOGY - G ENERAL ORDERABLES Performing Organization Address City/[facility] Co de Phone Number [facility] * Organism ID ([facility] Bill Only) (09/29/2024 12:00 AM EST) Organism ID Performed 10/21/2024 6:05 PM EST [facility] Other Venous blood specimen / Unknown 09/29/2024 10/18/2024 11:21 AM EST Narrative [facility] - 10/21/2024 6:05 PM EST Performed at: ??02 - [facility] [address], [place], [place] ??[id number] Gravel Truck Driver: Arik Wilks MD, Phone: ??[phone] Eula Baires MD LAB MICROBIOLOGY - G ENERAL ORDERABLES Performing Organization Address [facility] de Phone Number [facility] * Organism identification, mold result (09/29/2024 12:00 AM EST) Result 1 Comment 10/27/2024 2:05 PM EST [facility] Comment:TRICHOPHYTON VIOLACE UM/RUBRUM Other Topography unknown / Unknown 09/29/2024 10/17/2024 12:17 PM EST Narrative [facility] - 10/27/2024 2:05 PM EST Performed at: ??01 - [facility] [address] ??[id number] Gravel Truck Driver: Luisana Padilla MD, Phone: ??[phone] Eula Baires MD LAB MICROBIOLOGY - G ENERAL ORDERABLES [facility] * Fungal identification, mold (09/29/2024 12:00 AM EST) Organism Identification , Mold Final report 10/27/2024 2:05 PM EST [facility] Other Topography unknown / Unknown 09/29/2024 10/17/2024 12:17 PM EST Narrative [facility] - 10/27/2024 2:05 PM EST Performed at: ??01 - [facility] [address] ??[id number] Gravel Truck Driver: Luisana Padilla MD, Phone: ??[phone] Eula Baires MD LAB MICROBIOLOGY - G ENERAL ORDERABLES Performing Organization Address City/[facility] Co de Phone Number [facility] * (ABNORMAL) Fungal identification, yeast (09/29/2024 12:00 AM EST) Organism Identification , Yeast Final report(A) 10/21/2024 6:05 PM EST [facility] Other 09/29/2024 10/18/2024 11: 21 AM EST Narrative [facility] - 10/21/2024 6:05 PM EST Performed at: ??01 - [facility] [address] ??[id number] Gravel Truck Driver: Luisana Padilla MD, Phone: ??[phone] Eula Baires MD LAB MICROBIOLOGY - G ENERAL ORDERABLES Performing Organization Address City/[facility]/ZIP Co de Phone Number [facility] * (ABNORMAL) Culture fungal, other (09/29/2024 12:00 AM EST) Culture, Fungus Yeast(A) DONNA 11/14/2024 2:58 PM EST [facility] Comment: Sent to reference lab for identification. For results refer to specimen [id number] The organism value for this result has been updated. These results have been appended to the previously preliminary verified report. Culture, Fungus Mold(A) DONNA 11/14/2024 2:58 PM EST [facility] Comment: Sent to reference lab. For results refer to specimen ??[id number] The organism value for this result has been updated. These results have been appended to the previously preliminary verified report. Skin 09/29/2024 09/29/2024 6:3 3 PM EST Eula Baires MD LAB MICROBIOLOGY - G ENERAL ORDERABLES [facility] [address] [place] [address], from Last 3 Months
== END 2024-12-21 15:52 | disposition home or self-care (01) ==
LOC: HO.HMCC 15:07
PROVIDERS: PCP Nurse Practitioner Family; Visit Provider Nurse Practitioner Family
DX: I10 Essential (primary) hypertension (principal); E66.9 Obesity, unspecified; F51.04 Psychophysiologic insomnia; Z68.37 Body mass index [BMI] 37.0-37.9, adult

== ENCOUNTER → 2024-12-21 15:07 | Outpatient (BNVA) | payer MEDICARE, SELFPAY | PROVIDERS: PCP Nurse Practitioner Family; Visit Provider Nurse Practitioner Family | DX: I10 Essential (primary) hypertension (principal); E66.9 Obesity, unspecified; F51.04 Psychophysiologic insomnia | CPT/HCPCS: 96127; 99212 ==

== ENCOUNTER 2025-02-13 12:02 | Outpatient (REF) | payer MEDICARE, SELFPAY ==
--- OUTSIDE RECORDS SUMMARY | 2025-02-13 13:45 | XMS_ITS | Clinical Summary ---
Author Organization 299 [facility] Address [address] [place] [address] Phone Care Team Providers Care Integrity Specialist Name Role Phone Unavailable Primary Care Provider Unavailabl e Social History Tobacco Use Types Packs/Day Years Used Date Smoking Tobacco: Never Assessed Sex and Gender Information Value Date Recorded Sex Assigned at Not on file Legal Sex Male 6:16 PM EST Gender Identity Not on file Sexual Orientation Not on file Plan of Treatment Health Maintenance Due Date Last Done Comments DTaP,Tdap,and Td Vaccines (1 - Tdap) 1977 Pneumococcal Vaccine: 50+ Ye ars (1 of 1 - PCV) 2008 Zoster Vaccines (1 of 2) 2008 COVID-19 Vaccine ( - 2023-2 5 season) [...] patient's age to complete this topic Meningococcal B Vacine Aged Out No lo nger eligible based on patient's age to complete this topic RSV Immunization Patients Un donna 20 months Aged Out No longer eligible b ased on patient's age to complete this topic Varicella Vaccines Aged Out No longer eligible based on patient's age to complete this topic Insurance [employer] MEDICARE ADVANTAGE on file
--- OUTSIDE RECORDS SUMMARY | 2025-02-13 13:45 | XMS_ITS | Encounter Summary ---
Author Organization [facility] Address [address] [place] [address] Care Team Providers Care Library Helper Name Role Phone Unavailable Primary Care Provider Unavailabl e Encounter Details Date Type Department Care Team (Late st Contact Info) Description 09/29/2024 Lab Requisition [facility] - Main Lab [address] [facility] [place] [address] Eula Baires MD [address] [place] [address] Roge ISAAC [id number] Tinea pedis; Local infection of the skin [...] PM EST Performed at: ??01 - [facility] [address] ??[id number] Garbage Stoker: Luisana Padilla MD, Phone: ??[phone] Eula Baires MD LAB MICROBIOLOGY - GENERAL ELIZABETH WEAVER Final Result Performing Organization Address City/[facility] Co de Phone Number [facility] * Organism ID ([facility] Bill Only) (09/29/2024 12:00 AM EST) Organism ID Performed 10/21/2024 6:05 PM EST [facility] Other Venous blood specimen / Unknown 09/29/2024 10/18/2024 11:21 AM EST Narrative [facility] - 10/21/2024 6:05 PM EST Performed at: ??02 - [facility] [address], [place], [place] ??[id number] Garbage Stoker: Arik Wilks MD, Phone: ??[phone] Eula Baires MD LAB MICROBIOLOGY - GENERAL ELIZABETH WEAVER Final Result Performing Organization Address City/[facility]/ZIP Co de Phone Number [facility] * (ABNORMAL) Organism identification yeast (09/29/2024 12:00 AM EST) Result 1 Malassezia pachydermatis(A ) 10/21/2024 6:05 PM EST [facility] Other 09/29/2024 10/18/2024 11: 21 AM EST Narrative [facility] - 10/21/2024 6:05 PM EST Performed at: ??01 - [facility] [address] ??[id number] Garbage Stoker: Luisana Padilla MD, Phone: ??[phone] Eula Baires MD LAB MICROBIOLOGY - GENERAL ORDE RABLES Final Result [facility] * (ABNORMAL) Fungal identification, yeast (09/29/2024 12:00 AM EST) Organism Identification , Yeast Final report(A) 10/21/2024 6:05 PM EST [facility] Other 09/29/2024 10/18/2024 11: 21 AM EST Narrative [facility] - 10/21/2024 6:05 PM EST Performed at: ??01 - [facility] [address] ??[id number] Garbage Stoker: Luisana Padilla MD, Phone: ??[phone] Eula Baires MD LAB MICROBIOLOGY - GENERAL ORDMunir RABLES Final Result [facility] * Fungal identification, mold (09/29/2024 12:00 AM EST) Organism Identification , Mold Final report 10/27/2024 2:05 PM EST [facility] Other Topography unknown / Unknown 09/29/2024 10/17/2024 12:17 PM EST Narrative [facility] - 10/27/2024 2:05 PM EST Performed at: ??01 - [facility] [address] ??[id number] Garbage Stoker: Luisana Padilla MD, Phone: ??[phone] Eula Baires MD LAB MICROBIOLOGY - GENERAL ORDE OWEN Final Result Performing Organization Address [facility] Co de Phone Number [facility] * (ABNORMAL) Culture fungal, other (09/29/2024 12:00 AM EST) Culture, Fungus Yeast(A) DONNA 11/14/2024 2:58 PM EST [facility] Comment: Sent to reference lab for identification. For results refer to specimen [id number] The organism value for this result has been updated. These results have been appended to the previously preliminary verified report. Culture, Fungus Mold(A) DONNA 11/14/2024 2:58 PM EST [facility] Comment: Sent to reference lab. For results refer to specimen ??[id number] The organism value for this result has been updated. These results have been appended to the previously preliminary verified report. Skin 09/29/2024 09/29/2024 6:3 3 PM EST Eula Baires MD LAB MICROBIOLOGY - GENERAL ORDE RABDAGO Final Result Performing Organization Address [facility] Co de Phone Number [facility] [address] [place] [address], documented in this encounter Visit Diagnoses Diagnosis Tinea pedis Dermatophytosis of foot Local infection of the skin and subcutaneous tissue, unspecified Other atopic dermatitis documented in this encounter
[2025-02-13 13:49] LABS: MANUAL DIFF FLAG NO
[2025-02-13 13:56] LABS: Basophils Absolute Auto 0.1 X10*3/uL (0.0-0.2); Basophils Percent Auto 1.1 % (0-2); Eosinophils Absolute Auto 0.3 X10*3/uL (0.0-0.4); Eosinophils Percent Auto 3.8 % (0-4); Hematocrit 40.4 % (42.0-52.0); Hemoglobin 13.5 g/dl (14.0-18.0); Imm Gran Abs Auto 0.08 X10*3/uL (0.00-0.03); Imm Gran Pct Auto 0.9 % (0.0-0.4); Lymphocytes Percent Auto 21.6 % (20-40); Mean Corpuscular HGB Conc 33.4 g/dl (31.0-36.0); Mean Corpuscular Hemoglobin 31.5 pg (27.0-33.0); Mean Corpuscular Volume 94.2 fL (80.0-98.0); Mean Platelet Volume 10.6 fL (9.4-12.4); Monocytes Percent Auto 10.7 % (2-11); Neutrophils Absolute Auto 5.6 x10*3/uL (2.0-8.3); Neutrophils Percent Auto 61.9 % (45-73); Platelet Count 312 X10*3/uL (160-400); Red Blood Count 4.29 X10*6/uL (4.60-5.80); Red Cell Distribution Width 13.1 % (11.0-16.0); White Blood Count 9.1 X10*3/uL (4.8-10.8)
[2025-02-13 14:22] LABS: Alanine Aminotransferase 37 U/L (0-40); Albumin Level 3.9 g/dL (3.5-5.0); Alkaline Phosphatase 72 U/L (39-117); Anion Gap 14 (12-20); Aspartate Amino Transferase 38 U/L (5-37); Bilirubin Total 0.6 mg/dL (0.0-1.0); Blood Urea Nitrogen 16 mg/dL (9-16); Calcium 8.9 mg/dL (8.4-10.2); Carbon Dioxide 28 mmol/L (22-29); Chloride 104 mmol/L (96-108); Cholesterol 196 mg/dL (<200); Estimated Glomerular Filt Rate 57; Glucose Fasting 104 mg/dL (60-99); Glucose Random 102 mg/dL (60-115); HDL Cholesterol 31 mg/dL (>40); LDL Cholesterol Calculated 106 mg/dL (<100); Potassium 3.6 mmol/L (3.3-5.1); Sodium 142 mmol/L (135-145); Total Protein 7.1 g/dL (6.5-8.0); Triglycerides 297 mg/dL (<150)
[2025-02-13 14:29] LABS: TSH reflex Free T4 1.56 uIU/mL (0.32-4.0)
== END 2025-02-13 12:03 | disposition home or self-care (01) ==
LOC: HO.HMGCLDS 12:02
PROVIDERS: PCP Nurse Practitioner Family; Visit Provider Nurse Practitioner Family
DX: E66.9 Obesity, unspecified (principal); I10 Essential (primary) hypertension; R79.89 Other specified abnormal findings of blood chemistry
CPT/HCPCS: 36415; 80053; 80061; 84443; 85025

== ENCOUNTER 2025-03-15 09:00 | Outpatient (REF) | payer MEDICARE, SELFPAY ==
--- OUTSIDE RECORDS SUMMARY | 2025-03-15 13:23 | XMS_ITS | Encounter Summary ---
Author Organization [facility] Address [address] [place] [address] Care Team Providers Care Emergency Medical Tech Name Role Phone Unavailable Primary Care Provider Unavailabl e Encounter Details Date Type Department Care Team (Late st Contact Info) Description 09/29/2024 Lab Requisition [facility] - Main Lab [address] [facility] [place] [address] Eula Baires MD [address] [place] [address] Roge ISAAC [id number] Tinea pedis; Local infection of the skin [...] PM EST Performed at: ??01 - [facility] [address] ??[id number] Language Translator: Luisana Padilla MD, Phone: ??[phone] Eula Baires MD LAB MICROBIOLOGY - GENERAL ELIZABETH WEAVER Final Result Performing Organization Address City/[facility] Co de Phone Number [facility] * Organism ID ([facility] Bill Only) (09/29/2024 12:00 AM EST) Organism ID Performed 10/21/2024 6:05 PM EST [facility] Other Venous blood specimen / Unknown 09/29/2024 10/18/2024 11:21 AM EST Narrative [facility] - 10/21/2024 6:05 PM EST Performed at: ??02 - [facility] [address], [place], [place] ??[id number] Language Translator: Arik Wilks MD, Phone: ??[phone] Eula Baires MD LAB MICROBIOLOGY - GENERAL ELIZABETH WEAVER Final Result Performing Organization Address City/[facility]/ZIP Co de Phone Number [facility] * (ABNORMAL) Organism identification yeast (09/29/2024 12:00 AM EST) Result 1 Malassezia pachydermatis(A ) 10/21/2024 6:05 PM EST [facility] Other 09/29/2024 10/18/2024 11: 21 AM EST Narrative [facility] - 10/21/2024 6:05 PM EST Performed at: ??01 - [facility] [address] ??[id number] Language Translator: Luisana Padilla MD, Phone: ??[phone] Eula Baires MD LAB MICROBIOLOGY - GENERAL ORDE RABLES Final Result [facility] * (ABNORMAL) Fungal identification, yeast (09/29/2024 12:00 AM EST) Organism Identification , Yeast Final report(A) 10/21/2024 6:05 PM EST [facility] Other 09/29/2024 10/18/2024 11: 21 AM EST Narrative [facility] - 10/21/2024 6:05 PM EST Performed at: ??01 - [facility] [address] ??[id number] Language Translator: Luisana Padilla MD, Phone: ??[phone] Eula Baires MD LAB MICROBIOLOGY - GENERAL ORDMunir RABLES Final Result [facility] * Fungal identification, mold (09/29/2024 12:00 AM EST) Organism Identification , Mold Final report 10/27/2024 2:05 PM EST [facility] Other Topography unknown / Unknown 09/29/2024 10/17/2024 12:17 PM EST Narrative [facility] - 10/27/2024 2:05 PM EST Performed at: ??01 - [facility] [address] ??[id number] Language Translator: Luisana Padilla MD, Phone: ??[phone] Eula Baires MD LAB MICROBIOLOGY - GENERAL ORDE OWEN Final Result Performing Organization Address [facility] Co de Phone Number [facility] * (ABNORMAL) Culture fungal, other (09/29/2024 12:00 AM EST) Culture, Fungus Yeast(A) DONNA 11/14/2024 2:58 PM EST [facility] Comment: Sent to reference lab for identification. For results refer to specimen [id number] The organism value for this result has been updated. These results have been appended to the previously preliminary verified report. Culture, Fungus Mold(A) DONNA 11/14/2024 2:58 PM EST [facility] Comment: Sent to reference lab. For results refer to specimen ??[id number] The organism value for this result has been updated. These results have been appended to the previously preliminary verified report. Skin 09/29/2024 09/29/2024 6:3 3 PM EST Eula Baires MD LAB MICROBIOLOGY - GENERAL ORDE RABDAGO Final Result Performing Organization Address [facility] Co de Phone Number [facility] [address] [place] [address], documented in this encounter Visit Diagnoses Diagnosis Tinea pedis Dermatophytosis of foot Local infection of the skin and subcutaneous tissue, unspecified Other atopic dermatitis documented in this encounter
--- OUTSIDE RECORDS SUMMARY | 2025-03-15 13:23 | XMS_ITS | Clinical Summary ---
Author Organization 299 [facility] Address [address] [place] [address] Phone Care Team Providers Care Lab Courier Name Role Phone Unavailable Primary Care Provider [...] Vaccine ( - 2023-2 5 season) 2024 Abdominal Aortic Aneurysm (A AA) Screen 09/30/2024 Cholesterol Screening (Lipid Panel) 09/30/2024 Colorectal Cancer Screening: Colonoscopy 09/30/2024 Depression Screening 09/30/2024 Falls Risk Assessment 09/30/2024 Hepatitis C Screening 09/30/2024 Medicare Annual Wellness Visit 09/30/2024 Social Influencers of Health Screening 09/30/2024 Influenza Vaccine (Season Ended) 2025 RSV Immunization Adult Patie nts (1 - 1-dose 75+ series) 2033 HIB [...] age to complete this topic Meningococcal B Vaccine Aged Out No l onger eligible based on patient's age to complete this topic RSV Immunization Patients Un donna 20 months Aged Out No longer eligible b ased on patient's age to complete this topic Varicella Vaccines Aged Out No longer eligible based on patient's age to complete this topic Insurance [employer] ADVANTAGE on file
[2025-03-15 13:46] LABS: Appearance Urine Clear; Color Urine Yellow; Glucose Urine UA Negative (Negative); Leukocyte Esterase Urine Negative (Negative); Nitrite Urine Negative (Negative); Specific Gravity - Urine 1.025 (1.005-1.025); Urine Blood Negative (Negative); Urine Ketones Negative (Negative); Urine Protein Negative (Neg-Trace)
== END 2025-03-15 09:01 | disposition home or self-care (01) ==
LOC: HO.HMGCLNP 09:00
PROVIDERS: PCP Nurse Practitioner Family; Visit Provider Nurse Practitioner Family
DX: E66.9 Obesity, unspecified (principal); I10 Essential (primary) hypertension
CPT/HCPCS: 81003

== ENCOUNTER 2025-03-22 15:27 | Outpatient (AMB) | payer MEDICARE, SELFPAY ==
--- NOTE | 2025-03-22 15:29 | MHC.PC.OV ---
Vital Signs 03/22/25 15:35 Height 6 ft Weight 278 lb BMI 37.7 BP 132/72 Blood Pressure Location Lt brachial Position Sitting Pulse 80 Pulse Source Pulse Oximeter Pulse Oximetry (%) 97 Oxygen Delivery Method Room Air Intake Visit Reasons: Annual PE Disbursing Officer Required: No Accompanied by: Self / Same As Patient Allergies nuts Allergy (Severe, Uncoded 03/22/25 16:12) Anaphylaxis soap Adverse Reaction (Intermediate, Uncoded 03/22/25 16:12) rash Medication List - Last Reconciled 03/22/25 by Lul Mederos, [facility] albuterol sulfate 90 mcg/actuation 2 puffs PO Q4H PRN 30 days aspirin 81 mg PO DAILY 90 days cholecalciferol (vitamin D3) 25 mcg PO DAILY dupilumab 300 mg subcut Q2W epinephrine (EpiPen 2-Robby) 0.3 mg (0.3 mL) IM Q10M PRN 30 days ferrous sulfate (FeroSul) 325 mg PO DAILY hydrochlorothiazide 25 mg (2 x 12.5 mg) PO DAILY 90 days losartan 25 mg PO DAILY 90 days magnesium oxide 400 mg PO DAILY 90 days meloxicam 15 mg PO DAILY montelukast 10 mg PO BEDTIME ropinirole 0.5 mg PO BEDTIME rosuvastatin (Crestor) 5 mg PO DAILY suvorexant (Belsomra) 5 mg PO BEDTIME 30 days vitamin A 2,400 mcg PO DAILY Tobacco use date assessed: 12/21/24 Fall risk assessment: No Falls in past year Last assessed Fall Risk: 03/22/25 Dental Screening Dental Screen Date: 12/21/24 HPI Annual PE HPI Details History of Present Illness The patient is a 64-year-old male presenting for a routine physical examination. He suffers from chronic respiratory problems attributed to Chronic Obstructive Pulmonary Disease (COPD), and he reports exacerbation of dyspnea with exertion. He has a history of obstructive sleep apnea but lacks recent follow-up or treatment with a sleep study or CPAP device. Smoking cessation occurred approximately 14 years ago, preceding his ongoing respiratory issues. His weight status is noted as obese, and attempts are being made toward managing this through increased physical activity and diet. The patient also reports a history of anemia with a pending reevaluation. He does not currently utilize bronchodilators as a result of cost and preference. NOTE: labs already performed. elevated liver enzyme The skin examination highlighted seborrheic keratosis to back and eczema to his extremities. He also displays pitting edema on both lower legs due to his occupational standing. There is an absence of cardiac-related chest pain, gastrointestinal disturbances, urinary complaints, or psychological instability. Health Maintenance - Encouraged weight loss through diet and exercise - Advised smoking cessation continuation - Referred to Sleep Medicine for evaluation and potential CPAP therapy - Referred to lung screening program Social History - Former heavy smoker; quit 14 years ago - Engaged in a new walking exercise routine - Advised on dietary management for weight loss Review of Systems - Respiratory: Reports shortness of breath with exertion; denies chest pain - Gastrointestinal: Denies abdominal pain, blood in stool, constipation, diarrhea - Genitourinary: Denies urinary issues - Dermatological: Denies new skin lesions or rash beyond eczema and seborrheic keratosis - Psychological: Denies suicidal or homicidal ideation Physical Exam General: Cooperative, healthy appearing, comfortable, no acute distress, well developed, and obese Orientation: Patient oriented x3 Limitations: No limitations Head: Normal to inspection Ears: Hearing grossly normal bilaterally Nose: Normal external nose present Face and sinus: Normal facial exam Eyes: Appearance normal, both eyes and all related structures Neck: Normal visual inspection and Yes full ROM Respiratory: Normal respiratory effort and able to speak in complete sentences. Clear to auscultation bilaterally, Cardiovascular: Regular rate and rhythm. Normal S1 and S2 GI: Normal to inspection. Soft to palpation and nontender Skin: Seborrheic keratosis noted on the back and eczema-related lesions on bilateral lower extremities Neuro: Patient oriented x3 Extremities: +1 pitting edema to bilateral extremities, normal to inspection Results Plan I addressed the patient's COPD without initiation of bronchodilators (pt declined), focusing instead on lifestyle changes such as weight loss. I referred him for Sleep Medicine evaluation due to his obstructive sleep apnea. I advised dietary sodium reduction and leg elevation for managing pitting edema. I ordered an echocardiogram for his ascending aorta dilation, and further laboratory work is planned to assess his anemia. His past smoking history was noted, and continuation of cessation was encouraged. I noted seborrheic keratosis and eczema with no treatment initiated during this visit. Discussion Notes I discussed with the patient the management of his COPD, emphasizing the importance of weight management and lifestyle changes over pharmacological intervention at this time. We reviewed the need for referral to Sleep Medicine for a sleep study and potential CPAP therapy due to his history of obstructive sleep apnea. I explained the importance of sodium restriction and leg elevation to manage his pitting edema and advised on having an echocardiogram to evaluate his ascending aorta dilation. Potential risks and benefits of each intervention, including the denial of bronchodilators, were thoroughly discussed. I also reiterated the benefits of continued smoking cessation and the plan to monitor anemia with further labs. Patient Instructions - Begin or continue a routine walking or exercise regimen. - Focus on weight management through diet and exercise as discussed. - Limit dietary sodium intake to assist with managing edema. - Elevate legs as much as possible to reduce swelling. - Follow up with Sleep Medicine for a sleep study assessment. - Await scheduling for an echocardiogram to evaluate the aorta. - Continue to avoid smoking. [facility] Medical History Refused pneumococcal vaccination Diverticulosis Obesity Daytime sleepiness Pulmonary hypertension History of smoking at least 1 pack per day for at least 30 years Surgical History H/O shoulder surgery History of colonoscopy History of vasectomy Family History Father Cancer Mother No problems noted. 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 1. Little interest or pleasure in doing things: not at all 2. Feeling down, depressed, or hopeless: not at all 3. Trouble falling or staying asleep, or sleeping too much: not at all 4. Feeling tired or having little energy: not at all 5. Poor appetite or overeating: not at all 6. Feeling bad about yourself - or that you are a failure or have let yourself or your family down: not at all 7. Trouble concentrating on things, such as reading the newspaper or watching television: not at all 8. Moving or speaking so slowly that other people could have noticed. Or the opposite - being so fidgety or restless that you have been moving around a lot more than usual: not at all 9. Thoughts that you would be better off or of hurting yourself in some way: not at all Total score: 0 Depression Screening Interpretation: Negative Depression Screening Done: Yes 13540 - PHQ-9 Billing: Yes Source: Developed by Drs. Mark Sierra, Deanne eVra, Kali Leo and colleagues, with an educational vik from [employer]. Thrive Questionnaire Date Thrive assessed: 03/22/25 I am a: Patient What is your living situation today?: I have a steady place to live Within the past 12 months, did the food you bought not last and you didn't have the money to get more?: Often true Within the past 12 months, did you worry whether your food would run out before you got money to buy more?: Never true Do you have trouble paying for medicines?: Yes Do you have trouble getting transportation to medical appointments?: No Do you have trouble paying your heating and electricity bill?: Yes Do you have trouble taking care of your child, family member or friend?: No Do you have trouble with day-to-day activities such as bathing, preparing meals, shopping, managing finances, etc.?: No Are you currently unemployed and looking for a job?: No Are you interested in more education?: No Please select the resources that you would like help with: Food, Paying for medicine and Utilities Currently or been in a relationship where the following occur: No concerns reported THRIVE Score: 2 AUDIT C Alcohol Use Questionnaire (AUDIT-C) 1. How often do you have a drink containing alcohol?: Never 3. How often do you have six or more drinks on one occasion?: Never Total Score: 0 Score Reviewed/Action Taken: Yes STEPHEN-7 AMB Questionnaire STEPHEN-7 Date STEPHEN - 7 assessed: 03/22/25 Feeling nervous, anxious, or on edge: 0 = Not at all Not being able to stop or control worryin = Not at all Worrying too much about different things: 0 = Not at all Trouble relaxin = Not at all Being so restless that it is hard to sit still: 0 = Not at all Becoming easily annoyed or irritable: 0 = Not at all Feeling afraid as if something awful might happen: 0 = Not at all Total STEPHEN-7 score (0-4 normal; 5-9 mild; 10-14 moderate; 15-21 severe): 0 Source: Developed by Drs. Mark Sierra, Deanne Vera, Kali Leo and colleagues, with an educational vik from [employer]. STEPHEN-7 Assessment Billing STEPHEN-7 Assessment Tool: STEPHEN-7 Assessment 98217 Physical exam (Primary Care) Vital Signs: Last Vital Signs Pulse 80 03/22/25 15:35 BP 132/72 03/22/25 15:35 Pulse Ox 97 03/22/25 15:35 Oxygen Delivery Method Room Air 03/22/25 15:35 BMI result Body Mass Index 37.7 Tobacco/Smoking Status: Tobacco use Status Tobacco use date assessed 12/21/24 03/22/25 15:30 Patient Tobacco Use Status Former Tobacco user 03/22/25 15:30 e-Cigarette/Vaping Use Never Used 03/22/25 15:30 PHQ-9: PHQ-9 Score PHQ-9: Total score 0 03/22/25 15:36 Depression Screening Interpretation: Negative Thrive Assessment: Date of Thrive Assessment Date Thrive assessed 03/22/25 03/22/25 15:36 Currently or been in a relationship where the following occur: No concerns reported Coding Level of Care Code Est Pt Level 3 (34652) Est Pt Prev Care >65y(17871) Diagnoses Elevated liver enzymes R74.8 Anemia D64.9 COPD (chronic obstructive pulmonary disease) J44.9 Ascending aorta dilation I77.810 BRADEN (obstructive sleep apnea) G47.33 Edema R60.9 Obesity E66.9 Encounter for routine adult physical exam with abnormal findings Z00.01 Additional Codes STEPHEN-7 Assessment Billing - STEPHEN-7 Assessment Tool: STEPHEN-7 Assessment 97098 ([id number]) PHQ-9 - 97203 - PHQ-9 Billing: Yes ([id number]) Assessment & Plan Assessment & Plan (1) Elevated liver enzymes: Code(s): R74.8 - Abnormal levels of other serum enzymes Category: Medical (2) Anemia: Code(s): D64.9 - Anemia, unspecified Category: Medical (3) COPD (chronic obstructive pulmonary disease): Code(s): J44.9 - Chronic obstructive pulmonary disease, unspecified Category: Medical (4) Ascending aorta dilation: Code(s): I77.810 - Thoracic aortic ectasia Category: Medical (5) COPD (chronic obstructive pulmonary disease): Code(s): J44.9 - Chronic obstructive pulmonary disease, unspecified Category: Medical (6) BRADEN (obstructive sleep apnea): Code(s): G47.33 - Obstructive sleep apnea (adult) (pediatric) Category: Medical (7) Edema: Code(s): R60.9 - Edema, unspecified Category: Medical (8) Obesity: Code(s): E66.9 - Obesity, unspecified Category: Medical (9) Encounter for routine adult physical exam with abnormal findings: Code(s): Z00.01 - Encounter for general adult medical examination with abnormal findings Category: Medical Plan . Orders: Orders US abdomen complete Today R74.8 - Abnormal levels of other serum enzymes Complete Blood Count Auto Diff Today D64.9 - Anemia, unspecified Lactate Dehydrogenase Today D64.9 - Anemia, unspecified Ferritin Today D64.9 - Anemia, unspecified Vitamin B12 and Folate Today D64.9 - Anemia, unspecified CA echo transthoracic complete Today I77.810 - Thoracic aortic ectasia B Type Natriuretic Peptide Today E66.9 - Obesity, unspecified, R60.9 - Edema, unspecified Reticulocyte Count Today D64.9 - Anemia, unspecified Referrals Sleep Medicine Referral G47.33 - Obstructive sleep apnea (adult) (pediatric), J44.9 - Chronic obstructive pulmonary disease, unspecified Lung Cancer Screening Referral F17.200 - Nicotine dependence, unspecified, uncomplicated
[2025-03-22 15:35] VITALS: BP 132/72; PULSE 80; O2SAT 97; BMI 37.7
--- OUTSIDE RECORDS SUMMARY | 2025-03-22 16:20 | XMS_ITS | Clinical Summary ---
Author Organization [address] [facility] Address [address] [place] [address] Phone Care Team Providers Care Patient Intake Coordinator Name Role Phone Unavailable Primary Care Provider [...]
--- OUTSIDE RECORDS SUMMARY | 2025-03-22 16:21 | XMS_ITS | Encounter Summary ---
Author Organization [facility] Address [address] [place] [address] Care Team Providers Care Vp Clinical Name Role Phone Unavailable Primary Care Provider Unavailabl e Encounter Details Date Type Department Care Team (Late st Contact Info) Description 09/29/[address] [facility] - Main Lab [address] [facility] [place] [address] Eula Baires MD [address] [place] [address] Roge ISAAC [id number] Tinea pedis; Local infection of the skin [...] PM EST Performed at: ??01 - [facility] [address] ??[id number] Senior Data Modeler: Luisana Padilla MD, Phone: ??[phone] Eula Baires MD LAB MICROBIOLOGY - GENERAL ELIZABETH WEAVER Final Result Performing Organization Address City/[facility] Co de Phone Number [facility] * Organism ID ([facility] Bill Only) (09/29/2024 12:00 AM EST) Organism ID Performed 10/21/2024 6:05 PM EST [facility] Other Venous blood specimen / Unknown 09/29/2024 10/18/2024 11:21 AM EST Narrative [facility] - 10/21/2024 6:05 PM EST Performed at: ??02 - [facility] [address], [place], [place] ??[id number] Senior Data Modeler: Arik Wilks MD, Phone: ??[phone] Eula Baires MD LAB MICROBIOLOGY - GENERAL ELIZABETH WEAVER Final Result Performing Organization Address City/[facility]/ZIP Co de Phone Number [facility] * (ABNORMAL) Organism identification yeast (09/29/2024 12:00 AM EST) Result 1 Malassezia pachydermatis(A ) 10/21/2024 6:05 PM EST [facility] Other 09/29/2024 10/18/2024 11: 21 AM EST Narrative [facility] - 10/21/2024 6:05 PM EST Performed at: ??01 - [facility] [address] ??[id number] Senior Data Modeler: Luisana Padilla MD, Phone: ??[phone] Eula Baires MD LAB MICROBIOLOGY - GENERAL ORDE RABLES Final Result [facility] * (ABNORMAL) Fungal identification, yeast (09/29/2024 12:00 AM EST) Organism Identification , Yeast Final report(A) 10/21/2024 6:05 PM EST [facility] Other 09/29/2024 10/18/2024 11: 21 AM EST Narrative [facility] - 10/21/2024 6:05 PM EST Performed at: ??01 - [facility] [address] ??[id number] Senior Data Modeler: Luisana Padilla MD, Phone: ??[phone] Eula Baires MD LAB MICROBIOLOGY - GENERAL ORDMunir RABLES Final Result [facility] * Fungal identification, mold (09/29/2024 12:00 AM EST) Organism Identification , Mold Final report 10/27/2024 2:05 PM EST [facility] Other Topography unknown / Unknown 09/29/2024 10/17/2024 12:17 PM EST Narrative [facility] - 10/27/2024 2:05 PM EST Performed at: ??01 - [facility] [address] ??[id number] Senior Data Modeler: Luisana Padilla MD, Phone: ??[phone] Eula Baires MD LAB MICROBIOLOGY - GENERAL ORDE OWEN Final Result Performing Organization Address [facility] Co de Phone Number [facility] * (ABNORMAL) Culture fungal, other (09/29/2024 12:00 AM EST) Culture, Fungus Yeast(A) DONNA 11/14/2024 2:58 PM EST [facility] Comment: Sent to reference lab for identification. For results refer to specimen [id number] The organism value for this result has been updated. These results have been appended to the previously preliminary verified report. Culture, Fungus Mold(A) DONNA 11/14/2024 2:58 PM EST [facility] Comment: Sent to reference lab. For results refer to specimen ??[id number] The organism value for this result has been updated. These results have been appended to the previously preliminary verified report. Skin 09/29/2024 09/29/2024 6:3 3 PM EST Eula Baires MD LAB MICROBIOLOGY - GENERAL ORDE RABDAGO Final Result Performing Organization Address [facility] Co de Phone Number [facility] [address] [place] [address], documented in this encounter Visit Diagnoses Diagnosis Tinea pedis Dermatophytosis of foot Local infection of the skin and subcutaneous tissue, unspecified Other atopic dermatitis documented in this encounter
== END 2025-03-22 16:26 | disposition home or self-care (01) ==
LOC: HO.HMCC 15:28
PROVIDERS: PCP Nurse Practitioner Family; Visit Provider Nurse Practitioner Family
DX: Z00.00 Encounter for general adult medical examination without abnormal findings (principal); J44.9 Chronic obstructive pulmonary disease, unspecified; Z68.37 Body mass index [BMI] 37.0-37.9, adult; R74.8 Abnormal levels of other serum enzymes; E66.9 Obesity, unspecified; D64.9 Anemia, unspecified; I77.810 Thoracic aortic ectasia; G47.33 Obstructive sleep apnea (adult) (pediatric); R60.9 Edema, unspecified

== ENCOUNTER → 2025-03-22 15:27 | Outpatient (BNVA) | payer MEDICARE, SELFPAY | PROVIDERS: PCP Nurse Practitioner Family; Visit Provider Nurse Practitioner Family | DX: Z00.01 Encounter for general adult medical examination with abnormal findings (principal); R74.8 Abnormal levels of other serum enzymes; D64.9 Anemia, unspecified; J44.9 Chronic obstructive pulmonary disease, unspecified; I77.810 Thoracic aortic ectasia; G47.33 Obstructive sleep apnea (adult) (pediatric); R60.9 Edema, unspecified; E66.9 Obesity, unspecified; Z68.37 Body mass index [BMI] 37.0-37.9, adult | CPT/HCPCS: 96127; 99212; 99397 ==

== ENCOUNTER 2025-03-30 14:34 | Outpatient (REF) | payer MEDICARE, SELFPAY ==
--- OUTSIDE RECORDS SUMMARY | 2025-03-30 15:12 | XMS_ITS | Encounter Summary ---
Author Organization [facility] Address [address] [place] [address] Care Team Providers Care Creative Services Writer Name Role Phone Unavailable Primary Care Provider Unavailabl e Encounter Details Date Type Department Care Team (Late st Contact Info) Description 09/29/2024 Lab Requisition [facility] - Main Lab [address] [facility] [place] [address] Eula Baires MD [address] [place] [address] Roge ISAAC [address] Tinea pedis; Local infection of the skin [...] PM EST Performed at: ??01 - [facility] [address] ??[id number] Rotary Engine Assembler: Luisana Padilla MD, Phone: ??[phone] Eula Baires MD LAB MICROBIOLOGY - GENERAL ELIZABETH WEAVER Final Result Performing Organization Address City/[facility] Co de Phone Number [facility] * Organism ID ([facility] Bill Only) (09/29/2024 12:00 AM EST) Organism ID Performed 10/21/2024 6:05 PM EST [facility] Other Venous blood specimen / Unknown 09/29/2024 10/18/2024 11:21 AM EST Narrative [facility] - 10/21/2024 6:05 PM EST Performed at: ??02 - [facility] [address], [place], [place] ??[id number] Rotary Engine Assembler: Arik Wilks MD, Phone: ??[phone] Eula Baires MD LAB MICROBIOLOGY - GENERAL ELIZABETH WEAVER Final Result Performing Organization Address City/[facility]/ZIP Co de Phone Number [facility] * (ABNORMAL) Organism identification yeast (09/29/2024 12:00 AM EST) Result 1 Malassezia pachydermatis(A ) 10/21/2024 6:05 PM EST [facility] Other 09/29/2024 10/18/2024 11: 21 AM EST Narrative [facility] - 10/21/2024 6:05 PM EST Performed at: ??01 - [facility] [address] ??[id number] Rotary Engine Assembler: Luisana Padilla MD, Phone: ??[phone] Eula Baires MD LAB MICROBIOLOGY - GENERAL ORDE RABLES Final Result [facility] * (ABNORMAL) Fungal identification, yeast (09/29/2024 12:00 AM EST) Organism Identification , Yeast Final report(A) 10/21/2024 6:05 PM EST [facility] Other 09/29/2024 10/18/2024 11: 21 AM EST Narrative [facility] - 10/21/2024 6:05 PM EST Performed at: ??01 - [facility] [address] ??[id number] Rotary Engine Assembler: Luisana Padilla MD, Phone: ??[phone] Eula Baires MD LAB MICROBIOLOGY - GENERAL ORDMunir RABLES Final Result [facility] * Fungal identification, mold (09/29/2024 12:00 AM EST) Organism Identification , Mold Final report 10/27/2024 2:05 PM EST [facility] Other Topography unknown / Unknown 09/29/2024 10/17/2024 12:17 PM EST Narrative [facility] - 10/27/2024 2:05 PM EST Performed at: ??01 - [facility] [address] ??[id number] Rotary Engine Assembler: Luisana Padilla MD, Phone: ??[phone] Eula Baires MD LAB MICROBIOLOGY - GENERAL ORDE OWEN Final Result Performing Organization Address [facility] Co de Phone Number [facility] * (ABNORMAL) Culture fungal, other (09/29/2024 12:00 AM EST) Culture, Fungus Yeast(A) DONNA 11/14/2024 2:[address] [facility] Comment: Sent to reference lab for identification. For results refer to specimen [id number] The organism value for this result has been updated. These results have been appended to the previously preliminary verified report. Culture, Fungus Mold(A) DONNA 11/14/2024 2:[address] [facility] Comment: Sent to reference lab. For results refer to specimen ??[id number] The organism value for this result has been updated. These results have been appended to the previously preliminary verified report. Skin 09/29/2024 09/29/2024 6:3 3 PM EST Eula Baires MD LAB MICROBIOLOGY - GENERAL ORDE RABDAGO Final Result Performing Organization Address [facility] Co de Phone Number [facility] [address] [place] [address], documented in this encounter Visit Diagnoses Diagnosis Tinea pedis Dermatophytosis of foot Local infection of the skin and subcutaneous tissue, unspecified Other atopic dermatitis documented in this encounter
--- OUTSIDE RECORDS SUMMARY | 2025-03-30 15:12 | XMS_ITS | Clinical Summary ---
Author Organization [address] [facility] Address [address] [place] [address] Phone Care Team Providers Care Camp Dishwasher Name Role Phone Unavailable Primary Care Provider [...]
[2025-03-30 16:18] LABS: MANUAL DIFF FLAG NO
[2025-03-30 16:25] LABS: Basophils Absolute Auto 0.1 X10*3/uL (0.0-0.2); Basophils Percent Auto 1.1 % (0-2); Eosinophils Absolute Auto 0.3 X10*3/uL (0.0-0.4); Eosinophils Percent Auto 5.3 % (0-4); Hematocrit 40.3 % (42.0-52.0); Hemoglobin 13.8 g/dl (14.0-18.0); Imm Gran Abs Auto 0.05 X10*3/uL (0.00-0.03); Imm Gran Pct Auto 0.8 % (0.0-0.4); Immature Retic Fraction 24.6 % (2.3-13.4); Lymphocytes Percent Auto 31.4 % (20-40); Mean Corpuscular HGB Conc 34.2 g/dl (31.0-36.0); Mean Corpuscular Hemoglobin 32.3 pg (27.0-33.0); Mean Corpuscular Volume 94.4 fL (80.0-98.0); Mean Platelet Volume 10.5 fL (9.4-12.4); Monocytes Percent Auto 14.8 % (2-11); Neutrophils Percent Auto 46.6 % (45-73); Platelet Count 297 X10*3/uL (160-400); Red Blood Count 4.27 X10*6/uL (4.60-5.80); Red Cell Distribution Width 13.1 % (11.0-16.0); Retic HGB Equivalent 35.1 pg (30.0-35.0); Reticulocyte Percent 2.2 % (0.5-1.8); Reticulocytes Absolute 0.094 X10*6/uL (0.026-0.095); White Blood Count 6.4 X10*3/uL (4.8-10.8)
[2025-03-30 16:40] LABS: Lactate Dehydrogenase 363 U/L (118-273)
[2025-03-30 16:58] LABS: Ferritin 128 ng/mL (20-250)
[2025-03-30 17:04] LABS: B Type Natriuretic Peptide < 10 pg/mL (<100)
[2025-03-30 17:10] LABS: Folate 13.7 ng/mL (> or = 4.0); Vitamin B12 549 pg/mL (200-900)
== END 2025-03-30 14:35 | disposition home or self-care (01) ==
LOC: HO.HMGCLDS 14:34
PROVIDERS: PCP Nurse Practitioner Family; Visit Provider Nurse Practitioner Family
DX: D64.9 Anemia, unspecified (principal); R60.9 Edema, unspecified; E66.9 Obesity, unspecified
CPT/HCPCS: 36415; 82607; 82728; 82746; 83615; 83880; 85025; 85045

== ENCOUNTER → 2025-04-20 13:24 | Outpatient (REF) | payer MEDICARE, SELFPAY ==
--- NOTE | 2025-04-20 13:28 | CA_ITS ---
Transthoracic Echocardiogram Patient (Last, First, Middle): River Sanchez R Gender: Male Date of : 1960 Age: 64 Procedure Date: 04/20/2025 Procedure Type: Transthoracic Echocardiogram Location: OP Height: 182.88 cm Weight: 126.1 kg BSA: 2.45 m2 Heart Rate: bpm BP: 146 / 92 mmHg Bobbin Disker: TO Referring MD: Lul Mederos [facility] Symptoms: I77.810 - Thoracic aortic ectasia Study Quality: Fair, contrast ECG Rhythm: Sinus Conclusions: - The left ventricular systolic function is normal. The calculated ejection fraction is 63% by biplane method. - No obvious valvular pathology seen on this study. - There is mild dilatation of the sinuses of Valsalva measuring 4.19 cm and mild dilatation of the ascending aorta measuring 4.10 cm. Findings Procedure Information Contrast agent, definity, is being given per protocol without apparent complications. Left Ventricle Normal left ventricular cavity size. There is normal left ventricular wall thickness. The left ventricular systolic function is normal. The calculated ejection fraction is 63% by biplane method. There is no evidence of regional wall motion abnormalities. Diastolic function is normal for age. Right Ventricle Mildly increased right ventricular cavity size. There is normal right ventricular systolic function. Atria Both atria are normal in size. Aortic Valve There is a normal trileaflet aortic valve. There is no aortic valve stenosis. There is trace (trivial) aortic valve regurgitation. Mitral Valve The mitral valve appears normal. There is no mitral valve regurgitation. There is no mitral valve stenosis. Pulmonic Valve The pulmonic valve is likely normal. Tricuspid Valve There is trace tricuspid valve regurgitation. There is no evidence of pulmonary hypertension. Great Vessels There is mild dilatation of the sinuses of Valsalva measuring 4.19 cm and mild dilatation of the ascending aorta measuring 4.10 cm. Venous The inferior vena cava is normal in size and collapses greater than 50% with inspiration. Pericardium/Pleural There is no evidence of pericardial effusion. Prior Study Comparison No significant change compared to prior study dated: 01/15/2024. Recommendations, Care & Conclusions No obvious valvular pathology seen on this study. Measurements 2D Linear Measurements IVSd: 1.01 0.6-0.9/0.6-1.0 cm LVIDd: 4.78 3.9-5.3/4.2-5.9 cm LVIDd Index: 1.95 2.4-3.2/2.2-3.1 cm/m2 LVIDs: 3.05 2.0-3.6 cm LVPWd: 0.96 0.7-1.1 cm LA Diam: 3.50 2.7-3.8/3.0-4.0 cm LAIDs Index: 1.43 1.5-2.3 cm/m2 LV Mass: 206.26 67-162/88-224 g LV Mass Index: 84.19 43-95/49-115 g/m2 LVOT Diam: 2.60 3.0+(-)1.3 cm 2D Systolic Function EF 4C: 57.10 >55% EF 2C: 65.80 >55% EF BiP: 63.30 >55% Mitral Valve MV Pk E: 0.62 MV PK A: 0.59 MV Decel Time: 234.00 E/A: 1.10 E'Lateral: 8.27 E'Medial: 7.94 E/E' Med: 7.80 E/E' Lat: 7.50 PHT: 68.00 MVA PHT: 3.24 Decel Glynn: 2.66 Aortic Valve AoV Pk Jovany: 1.49 AoV Mn Jovany: 0.99 AoV VTI: 0.31 AoV Pk Grad: 9.00 Aov Mn Grad: 4.00 DI Cont.VTI: 4.15 LVOT LVOT Pk Jovany: 1.31 LVOT Mn Jovany: 0.82 LVOT VTI: 0.24 LVOT Pk Grad: 7.00 LVOT Mn Grad: 3.00 LVOT Diam: 2.60 LVOT Area: 5.31 Diastolic Function MV Pk E: 0.62 MV Pk A: 0.59 E/A: 1.10 E'Medial: 7.94 E/E' Med: 7.80 E' Laterial: 8.27 E/E' Lat: 7.50 Right Ventricle TAPSE (mm): 27.00 TVS' Jovany: 13.80 Tricuspid Valve RA Press: 3.00 Great Vessels Aorta Sinus of Valsalva: 4.19 2.0-3.[address] Ridge: 3.66 1.7-3.4 cm Ao Asc: 4.10 2.1-3.4 cm Updated in Other Vendor System with Status of Final Duc Granado MD electronically signed on 04/21/2025 11:37:39 AM with status of Final
--- OUTSIDE RECORDS SUMMARY | 2025-04-20 15:50 | XMS_ITS | Clinical Summary ---
Author Organization [address] [facility] Address [address] [place] [address] Phone Care Team Providers Care Resource Management Planner Name Role Phone Unavailable Primary Care Provider [...]
== END ==
LOC: HO.CARD 13:24
PROVIDERS: PCP Nurse Practitioner Family; Visit Provider Nurse Practitioner Family
DX: I77.810 Thoracic aortic ectasia (principal)
CPT/HCPCS: 93306; Q9957

== ENCOUNTER → 2025-04-20 13:28 | Outpatient (BNV) | payer MEDICARE, SELFPAY | PROVIDERS: PCP Nurse Practitioner Family; Visit Provider Internal Medicine | DX: I35.1 Nonrheumatic aortic (valve) insufficiency (principal); I36.1 Nonrheumatic tricuspid (valve) insufficiency; I77.810 Thoracic aortic ectasia | CPT/HCPCS: 93306 ==

== ENCOUNTER 2025-04-24 10:18 | Outpatient (REF) | payer MEDICARE, SELFPAY ==
--- NOTE | ~2025-04-24 | US_ITS ---
CLINICAL HISTORY: R74.8 - Abnormal levels of other serum enzymes US abdomen complete Comparison: None Findings: The visualized pancreas is normal. The visualized IVC is unremarkable. Liver measures 21.7 cm in length and is echogenic. There is no visualized focal liver lesion. There is no intrahepatic bile duct dilatation. The common duct is 2.5 mm in diameter. The gallbladder is normal. There is no sonographic Lorenzana sign. The main portal vein is antegrade. The right kidney is 11.2 cm in length. The left kidney is 9.0 cm in length. The spleen is normal. No ascites. IMPRESSION: Hepatomegaly with fatty infiltration of the liver. This document has been electronically signed by: Wendi Sandoval MD on 04/24/2025 17:14:28
--- OUTSIDE RECORDS SUMMARY | 2025-04-24 11:28 | XMS_ITS | Clinical Summary ---
Author Organization [address] [facility] Address [address] [place] [address] Phone Care Team Providers Care Vp Training Name Role Phone Unavailable Primary Care Provider [...]
[2025-04-24 13:16] LABS: MANUAL DIFF FLAG NO
[2025-04-24 13:30] LABS: Basophils Absolute Auto 0.1 X10*3/uL (0.0-0.2); Basophils Percent Auto 1.2 % (0-2); Eosinophils Absolute Auto 0.4 X10*3/uL (0.0-0.4); Eosinophils Percent Auto 5.1 % (0-4); Hematocrit 40.3 % (42.0-52.0); Hemoglobin 13.2 g/dl (14.0-18.0); Imm Gran Abs Auto 0.07 X10*3/uL (0.00-0.03); Imm Gran Pct Auto 0.9 % (0.0-0.4); Lymphocytes Absolute Auto 1.9 X10*3/uL (1.2-4.9); Lymphocytes Percent Auto 24.9 % (20-40); Mean Corpuscular HGB Conc 32.8 g/dl (31.0-36.0); Mean Corpuscular Hemoglobin 31.5 pg (27.0-33.0); Mean Corpuscular Volume 96.2 fL (80.0-98.0); Mean Platelet Volume 11.1 fL (9.4-12.4); Monocytes Percent Auto 13.2 % (2-11); Neutrophils Absolute Auto 4.2 x10*3/uL (2.0-8.3); Neutrophils Percent Auto 54.7 % (45-73); Platelet Count 277 X10*3/uL (160-400); Red Blood Count 4.19 X10*6/uL (4.60-5.80); White Blood Count 7.6 X10*3/uL (4.8-10.8)
[2025-04-24 13:52] LABS: Alanine Aminotransferase 30 U/L (0-40); Albumin Level 3.9 g/dL (3.5-5.0); Alkaline Phosphatase 57 U/L (39-117); Anion Gap 12 (12-20); Aspartate Amino Transferase 37 U/L (5-37); Bilirubin Total 0.4 mg/dL (0.0-1.0); Blood Urea Nitrogen 27 mg/dL (9-16); Calcium 9.1 mg/dL (8.4-10.2); Carbon Dioxide 28 mmol/L (22-29); Chloride 108 mmol/L (96-108); Estimated Glomerular Filt Rate 56; Glucose Random 103 mg/dL (60-115); Lactate Dehydrogenase 369 U/L (118-273); Potassium 4.2 mmol/L (3.3-5.1); Sodium 144 mmol/L (135-145); Total Protein 6.8 g/dL (6.5-8.0)
== END 2025-04-24 10:19 | disposition home or self-care (01) ==
LOC: HO.HMGCX 10:18
PROVIDERS: PCP Nurse Practitioner Family; Visit Provider Nurse Practitioner Family
DX: R74.02 Elevation of levels of lactic acid dehydrogenase [LDH] (principal); R74.8 Abnormal levels of other serum enzymes
CPT/HCPCS: 36415; 76700; 80053; 83615; 85025; 86880

== ENCOUNTER → 2025-04-24 10:33 | Outpatient (BNV) | payer MEDICARE, SELFPAY | PROVIDERS: PCP Nurse Practitioner Family; Visit Provider Radiology Diagnostic Radiology | DX: R16.0 Hepatomegaly, not elsewhere classified (principal) | CPT/HCPCS: 76700 ==

== ENCOUNTER 2025-05-15 12:56 | Outpatient (AMB) | payer MEDICARE, SELFPAY ==
[2025-05-15 12:59] VITALS: BP 132/82; PULSE 91; O2SAT 94; BMI 38.5
--- NOTE | 2025-05-15 12:59 | MHC.OFFVIS ---
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 He has a history of obstructive sleep apnea but lacks recent follow-up or treatment with a sleep study or CPAP device. patient states no sleep studies. Patient states states loud frequent snoring. Accompanied by: Self / Same As Patient Allergies nuts Allergy (Severe, Uncoded 03/22/25 16:12) Anaphylaxis soap Adverse Reaction (Intermediate, Uncoded 03/22/25 16:12) rash HPI Comments Details: 64 year old male with COPD presents for a new patient evaluation of BRADEN per Dr. Mederos, his PCP. 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 He was exposed to many neurological toxins to include RUTHIE 5 fluids. 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 He goes to bed at 11pm and has 3-4 arousals at night, once for a bathroom break and the other arousals are because he can not stay asleep. He takes benadryl to help him stay asleep. He also takes Belsomra if up for long periods of the night. His c/o loud snoring with tossing, and turning. Denies headaches, and bruxism. Denies Parasomnias. He has LE bilateral eczema and psoriasis, Dupexin not covered by his insurance. He has an itchy, tingling, and uncomfortable sensation in his feet from ankles to the shins. He has restless legs symptoms, he takes magnesium citrate 400mg daily and that helps. His diet is terrible, he eats alot. Mood is great. He drinks one shot of cactus juice annually, denies smoking. BP has been consistently elevated and he thinks it is the machine squeeze error . 165/98 pulse 74. Thursday 148/91. Thursday 149/90 and this am it was 150/94, pulse is 82. In clinic today BP is 132/82. [facility] Medical History Fatty liver HTN (hypertension) Pulmonary hypertension COPD (chronic obstructive pulmonary disease) BRADEN (obstructive sleep apnea) Personal history of nicotine dependence History of colon polyps Diverticulosis Obesity Refused pneumococcal vaccination Surgical History History of shoulder surgery History of colonoscopy History of vasectomy Family History Father Cancer Mother No problems noted. 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 Current occupational exposures/hazards: No Cognitive needs: No Hearing needs: No Vision needs: Yes (Bifocals) Physical Exam Vital Signs: Last Vital Signs Pulse 91 05/15/25 12:59 BP 132/82 05/15/25 12:59 Pulse Ox 94 05/15/25 12:59 Oxygen Delivery Method Room Air 05/15/25 12:59 BMI result Body Mass Index 38.5 Const Other: BMI is 38.5 General: cooperative, comfortable and no acute distress Nutritional Appearance: obese Orientation/consciousness: patient oriented x3 HEENT Face and sinus: Yes face symmetric Teeth and gingiva: other (Mallmpti score is 4) Eyes Pupils: Equal, round and reactive pupils present Neck Neck: Yes full ROM Resp Effort & Inspection: normal respiratory effort and able to speak in complete sentences Neuro General: patient oriented x3 and moves all extremities Cranial nerves: Yes Equal, round and reactive pupils present, Yes Normal accommodation reflex present, Yes Normal facial strength present, Yes Midline tongue present, Yes Ability to bilaterally rotate head present and Yes Ability to bilaterally elevate shoulders present Gait exam (Neuro): Normal gait present Motor exam (neuro): 5/5 motor strength present throughout and Normal motor muscle tone present throughout Deep tendon reflexes (DTR's): Right triceps reflex intensity grade: 2+, Left triceps reflex intensity grade: 2+, Rt Biceps (C5, C6): 2+, Left biceps reflex intensity grade: 2+, Right brachioradialis reflex intensity grade: 2+, Left brachioradialis reflex intensity grade: 2+, Right patellar reflex intensity grade: 2+, Left patellar reflex intensity grade: 2+, Right ankle reflex intensity grade: 2+ and Left ankle reflex intensity grade: 2+ Coordination: [id number] test normal Psych Appearance: grossly normal Speech and movement: Normal speech and movement present Thought process: Normal thought process present Thought content: Normal thought content present Results Reviewed Results Reviewed: 2024 IMPRESSION: Hepatomegaly with fatty infiltration of the liver. PFT 2022 COPD -Interpretation [There is an obstructive ventilatory defect consistent with COPD. No significant response to bronchodilators noted. Mild decrease in maximum voluntary ventilation secondary to likely deconditioning. Lung volumes are normal except for decrease in the expiratory reserve volume secondary to the elevated BMI. Diffusing capacity is within normal limits. Clinical correlation warranted. Assessment & Plan Assessment & Plan (1) Excessive daytime sleepiness: Code(s): G47.19 - Other hypersomnia Category: Medical (2) Anemia: Code(s): D64.9 - Anemia, unspecified Category: Medical Qualifiers: Anemia type: iron deficiency Iron deficiency anemia type: unspecified iron deficiency Qualified Code(s): D50.9 - Iron deficiency anemia, unspecified (3) BRADEN (obstructive sleep apnea): Code(s): G47.33 - Obstructive sleep apnea (adult) (pediatric) Category: Medical (4) Daytime sleepiness: Code(s): R40.0 - Somnolence Category: Medical Plan Fatigue r/o BRADEN with HST as he has copd psg may be a better option for him, insurance approval pending due to cv comorbidities. PFTs reviewed with patient. Labs B12 normal, ferritin normal, folate, mma homocysteine? He is anemic, LDH is elevated. Chronic ALYSON? Orders: Orders RT PSG in-lab sleep study Today G47.19 - Other hypersomnia Medications: New ferrous sulfate 325mg po daily. 325 mg PO DAILY 90 tabs 0RF ALYSON 3 months MDD 325mg D50.9 - Iron deficiency anemia, unspecified Patient Instructions: Sleep Hygiene provided: set a scheduled bedtime and wake time to help regulate the circadian rhythm and balance the release of pituitary hormones. Sleep in a dark room, temperatures below 68 degrees, and no devices n bed. Limit caffeinated products 6 hours prior to bed, and limit fluids 2-4 hours prior to bed. Gentle night yoga, diffusing essential oils, and playing soft music can be relaxing. Coding Level of Care Code New Pt Level 4 (63184) Diagnoses Excessive daytime sleepiness G47.19 Iron deficiency anemia, unspecified iron deficiency anemia type D50.9 Anemia type: iron deficiency Iron deficiency anemia type: unspecified iron deficiency BRADEN (obstructive sleep apnea) G47.33 Daytime sleepiness R40.0 Time Spent (min) 30 Comment Improving Sleep Questionnaire Difficulty falling asleep: No Difficulty staying asleep?: Yes Number of arousals: 3-4 Snoring: Yes Witnessed apneas: No Gasping arousals: No Nocturia: No GERD: No Vivid dreams: No Acting out dreams: No Abnormal behavior in sleep: No Abnormal movements in sleep: No Morning headaches: No Excessive daytime sleepiness: No Daytime naps: No Restless legs: No Hallucinations: No Sleep Study: Yes CPAP: Yes
--- OUTSIDE RECORDS SUMMARY | 2025-05-15 13:19 | XMS_ITS | Clinical Summary ---
Author Organization [address] [facility] Address [address] [place] [address] Phone Care Team Providers Care Learning Support Teacher Name Role Phone Unavailable Primary Care Provider [...]
--- OUTSIDE RECORDS SUMMARY | 2025-05-15 13:19 | XMS_ITS | Patient Health Record ---
Author Organization [facility] Address [address] [place] [address] Care Team Providers Care Pension Examiner Name Role Phone CAROLEE BROWN Primary Care Provider Mark Jamison Unavailable [phone] Reason For Referral No Information Medications Medication SIG (Take, Route, Fr equency, Duration) Notes Start Date End Date Status Aspirin 81 mg Active Symbicort 160/4-5 Ac tive MoviPrep 100 GM as directed Orally a s directed for 1 dose 12/09/2013 Active Vitamin D Active ProAir HFA Active Problems Problem Type SNOMED Code ICD Code Onset Dates Problem Status W/U Status Risk Notes Problem Already on aspirin (924019282) Long-term (current) use of aspirin (V58.66) Active confirmed Problem Colon cancer screening (V76.51) Active confirmed Problem History of adenomatous polyp of colon (483890682) History of adenomatous polyp of colon (V12.72) Active confirmed Plan Of Treatment Future Test Test Name Order Date COLONOSCOPY 12/09/2013 Insurance Providers Payer Name Payer Address Payer Phone Subscriber Number Group Number Insured Name Patient Relationship to Insured Coverage Start Date Coverage End Date [facility] [address] [place], [place] [id number] MICHOACANO MCKEON Self - patient is the insured Medical (General) History Medical History History ICD Code colonoscopy 04-05-2009--1 tubular adenoma removed asthma/COPD Denies [place],DM,CVA,renal disease Neg ETT in approx 2011 Surgical History Surgery Date(Month/Year) nasal surgery vasectomy shoulder surgery
== END 2025-05-15 14:34 | disposition home or self-care (01) ==
LOC: HO.HSMS 12:57
PROVIDERS: PCP Nurse Practitioner Family; Visit Provider Physician Assistant Medical
DX: G47.19 Other hypersomnia (principal); D50.9 Iron deficiency anemia, unspecified; G47.33 Obstructive sleep apnea (adult) (pediatric); R40.0 Somnolence
CPT/HCPCS: 99204

== ENCOUNTER → 2025-05-15 12:56 | Outpatient (BNVA) | payer MEDICARE, SELFPAY | PROVIDERS: PCP Nurse Practitioner Family; Visit Provider Physician Assistant Medical | DX: G47.33 Obstructive sleep apnea (adult) (pediatric) (principal); R40.0 Somnolence; D64.9 Anemia, unspecified; G47.19 Other hypersomnia | CPT/HCPCS: 99202 ==

== ENCOUNTER 2025-05-26 09:39 | Outpatient (AMB) | payer MEDICARE, SELFPAY ==
--- NOTE | 2025-05-26 07:39 | A.OFFVIS_ITS ---
Intake Visit Reasons: Former Smoker Allergies nuts Allergy (Severe, Uncoded 03/22/25 16:12) Anaphylaxis soap Adverse Reaction (Intermediate, Uncoded 03/22/25 16:12) rash HPI HPI Former Smoker: Details: Initial visit for this 64yo smoker with a 30PYH. Patient started smoking at age 15 for 34 years at 1ppd. He quit around 2009. . Denies marijuana use. Denies second hand smoke exposure. Denies exposure to chemicals or substances like asbestos. . Denies known family history of lung cancer. Denies personal history of cancers. Denies chest CT in last year. . Denies recent travel outside the [place]. Denies recent respiratory illness or recent hospitalization for respiratory issues. History testing positive for COVID - 2021. Admits receiving COVID Vaccine. Brand:[] Location: [] Date: [] . Denies fever, chills, new/worsening cough, hemoptysis, hoarseness or dysphagia. Denies significant chest pain, significant dyspnea or unintentional weight loss. Patient Lung Cancer Screening Questionnaire reviewed with patient by provider. . Shared Decision Making Completed. Patient meets criteria. Discussed in detail with patient, the risk vs benefit of LDCT screening. Patient consents to proceed with scan. Discussed smoking cessation. [facility], [facility] Medical History (Updated 05/26/25 @ 10:02 by Venecia Elizondo PA-C) HTN (hypertension) Pulmonary hypertension COPD (chronic obstructive pulmonary disease) BRADEN (obstructive sleep apnea) Fatty liver Diverticulosis History of colon polyps Eczematous dermatitis Obesity Personal history of nicotine dependence Refused pneumococcal vaccination Surgical History History of shoulder surgery History of colonoscopy History of vasectomy Family History Father Cancer Mother No problems noted. 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 - Patient meets criteria for LDCT for lung cancer screening purposes and is asymptomatic. - Smoking cessation counseling offered. Patients can always call [phone]. - Will arrange for a LDCT scan of the chest for screening purposes at [facility]. - Risks, benefits, and alternatives were discussed in detail and the patient agrees to proceed. - Risks discussed include but are not limited to: radiation exposure, anxiety during testing and while awaiting results, false negatives, false positives and possibility of additional intervention such as further imaging or surgical procedures for benign disease. - Benefits are obviously detection of lung cancer at an early stage which can lead to improved outcomes. - Discussed the importance of screening program compliance with adherence to yearly LDCT scan as scheduled - or sooner interval scans for personalized screening regimen. - Discussed follow up plan. Our office will send a letter discussing results and if needed set up phone call and office visit based on CT findings. - Patient educated on results categorization and the management decisions for suspicious findings potentially found on the screening LDCT scan. Any patient with a Lung RADS score of 3 or 4 will be reviewed by a multidisciplinary team at [facility] to form a plan of action in regards to scan findings. - If further work up is warranted for a suspicious lung finding this will be followed by the Lung Cancer Screening program in conjunction with the Thoracic Surgery Department at [facility]. - A copy of the office note and LDCT will be sent to the patient's PCP - as well as documentation on any associated further plans of care. - Incidental findings on LDCT are the PCP's responsibility. These findings are indicated with an S finding on the LDCT Assessment. A note discussing the findings will be sent to the PCP who is then responsible for further management. - All questions answered.? Coding Level of Care Code Lung Cancer Screening G0296 Diagnoses Personal history of nicotine dependence Z87.891
--- OUTSIDE RECORDS SUMMARY | 2025-05-26 09:57 | XMS_ITS | Patient Health Record ---
Author Organization [facility] Address [address] [place] [address] Care Team Providers Care Sign Artist Name Role Phone CAROLEE BROWN Primary Care Provider Mark Jamison Unavailable [phone] Reason For Referral No Information Medications Medication [...] Status Risk Notes Problem Already on aspirin (159086976) Long-term (current) use of aspirin (V58.66) Active confirmed Problem Colon cancer screening (V76.51) Active confirmed Problem History of adenomatous polyp of colon (073355338) History of adenomatous polyp of colon (V12.72) Active confirmed Plan Of Treatment Future Test Test Name Order Date COLONOSCOPY 12/09/2013 Insurance Providers Payer Name Payer Address Payer Phone Subscriber Number Group Number Insured Name Patient Relationship to Insured Coverage Start Date Coverage End Date [facility] [address] [place], [place] [id number] MICHOACANO MCKEON Self - patient is the insured Medical (General) History Medical History History ICD Code colonoscopy 04-05-2009--1 tubular adenoma removed asthma/COPD Denies [place],DM,CVA,renal disease Neg ETT in approx 2011 Surgical History Surgery Date(Month/Year) nasal surgery vasectomy shoulder surgery
--- OUTSIDE RECORDS SUMMARY | 2025-05-26 09:57 | XMS_ITS | Clinical Summary ---
Author Organization [address] [facility] Address [address] [place] [address] Phone Care Team Providers Care Pickler Helper Name Role Phone Unavailable Primary Care [...] Influencers of Health Screening 09/30/2024 Influenza Vaccine (#1) 2025 RSV Immunization Adult Patie nts (1 [...]
== END 2025-05-26 10:15 | disposition home or self-care (01) ==
LOC: HO.HPS 09:40
PROVIDERS: PCP Nurse Practitioner Family; Referring Provider Nurse Practitioner Family; Visit Provider Physician Assistant Medical
DX: Z87.891 Personal history of nicotine dependence (principal)
CPT/HCPCS: G0296

== ENCOUNTER 2025-05-26 10:00 | Outpatient (REF) | payer MEDICARE, SELFPAY ==
--- NOTE | ~2025-05-26 | CT_ITS ---
EXAMINATION: CT LUNG SCREENING HISTORY: Z87.891 - Personal history of nicotine dependence TECHNIQUE: Low dose axial images were obtained from the sternal notch to upper abdomen without IV contrast per standard departmental protocol. Sagittal and coronal reformatted images were also obtained and reviewed. One or more of the following techniques was used for dose reduction: Automated exposure control, adjustment of the mA and/or kV according to patient size, use of iterative reconstruction technique. DLP: 90 mGy-cm COMPARISON: There are no prior studies available for comparison. FINDINGS: Lung nodules: There is biapical pleural and parenchymal scarring. A 3-4 mm nodule is noted in the right lung apex (series 4, image 24). There is an additional 2 mm nodule in the right lower lobe (series 4, image 76). Emphysema: none Coronary Calcification: mild Aortic Arch Calcification: mild Potentially Significant Incidentals : none Additional Chest Findings: There is no pleural or pericardial effusion. No mediastinal or axillary lymphadenopathy is identified. Visualized upper abdomen: The visualized portions of the liver, spleen, and adrenals have an unremarkable unenhanced appearance. CT/CT lung screening IMPRESSION: No suspicious pulmonary nodules are identified. LUNG-RADS ASSESSMENT: Lung-RADS 2: Benign MANAGEMENT: Continue annual screening with LDCT in 12 months Category S: N/A Electronically signed by: Mark Headley MD 05/26/2025 11:25 AM EDT
== END 2025-05-26 10:01 | disposition home or self-care (01) ==
LOC: HO.CT 10:00
PROVIDERS: PCP Nurse Practitioner Family; Visit Provider Physician Assistant Medical
DX: Z12.2 Encounter for screening for malignant neoplasm of respiratory organs (principal); Z87.891 Personal history of nicotine dependence
CPT/HCPCS: 71271; G0296

== ENCOUNTER → 2025-05-26 10:03 | Outpatient (BNV) | payer MEDICARE, SELFPAY | PROVIDERS: PCP Nurse Practitioner Family; Visit Provider Radiology Diagnostic Radiology | DX: Z87.891 Personal history of nicotine dependence (principal) | CPT/HCPCS: 71271 ==

== ENCOUNTER 2025-07-18 15:08 | Outpatient (AMB) | payer MEDICARE, SELFPAY ==
--- NOTE | 2025-07-18 15:11 | A.OFFPC_ITS ---
Vital Signs 07/18/25 15:12 Weight 277 lb BP 126/76 Blood Pressure Location Lt brachial Position Sitting Respiration 16 Pulse 75 Pulse Source Pulse Oximeter Pulse Oximetry (%) 95 Oxygen Delivery Method Room Air Intake Visit Reasons: leg wound Allergies nuts Allergy (Severe, Uncoded 03/22/25 16:12) Anaphylaxis soap Adverse Reaction (Intermediate, Uncoded 03/22/25 16:12) rash Tobacco use date assessed: 12/21/24 Dental Screening Dental Screen Date: 12/21/24 HPI leg wound HPI Details Chief Complaint The patient presents with a left lower extremity brown wound. History of Present Illness The patient is a 64-year-old male presenting with a left lower extremity brown wound. The wound appeared approximately three days ago and is located on the anterior brown, mid to lower region. There is tannish drainage and granulation tissue present, with surrounding erythema that does not appear cellulitic. The patient has a history of venous stasis in both lower extremities, which may be contributing to the current ulceration. He has a significant smoking history, having smoked up to four packs per day, but quit 15 years ago. He is currently enrolled in a low-dose CT scan program for lung health monitoring. Social History - Smoking: Former smoker, quit 15 years ago, previously smoked up to four packs per day Health Maintenance - Enrolled in low-dose CT scan program f or lung health monitoring Review of Systems - Respiratory: Denies increased dyspnea or chest pain Physical Exam General: Cooperative, healthy appearing, comfortable, no acute distress and well developed Orientation: Patient oriented x3 Limitations: No limitations Head: Normal to inspection Ears: Hearing grossly normal bilaterally Nose: Normal external nose present Face and sinus: Normal facial exam Eyes: Appearance normal, both eyes and all related structures Neck: Normal visual inspection and Yes full ROM Respiratory: Normal respiratory effort and able to speak in complete sentences. Clear to auscultation bilaterally Cardiovascular: Regular rate and rhythm. Normal S1 and S2 GI: Normal to inspection. Soft to palpation and nontender Skin: No rashes or lesions noted Neuro: Patient oriented x3 Extremities: Venous stasis noted in bilateral extremities. Anterior brown wound, ulceration on mid to lower left brown with tannish drainage, granulation tissue, and surrounding erythema. Normal to inspection otherwise. Results 1. Venous Stasis The patient will undergo bilateral extremity ultrasounds to assess the extent of venous stasis. Referral to a vascular specialist is planned for further evaluation and management. 2. Anterior Brown Ulceration The patient will be started on antibiotics to address the ulceration and prevent infection. He will be referred to a wound care center for specialized treatment. Discussion Notes I discussed with the patient the presence of venous stasis and the need for bilateral extremity ultrasounds to evaluate the condition further. We also talked about the anterior brown ulceration, and I recommended starting antibiotics and referring him to a wound care center. The importance of follow- up with a vascular specialist was emphasized to manage the venous stasis effectively. Patient Instructions - Start prescribed antibiotics as direct ed. - Attend scheduled appointment at the [facility] care center. - Follow up with the vascular specialist as advised. [facility] Medical History HTN (hypertension) Pulmonary hypertension COPD (chronic obstructive pulmonary disease) BRADEN (obstructive sleep apnea) Fatty liver Diverticulosis History of colon polyps Eczematous dermatitis Obesity Personal history of nicotine dependence Refused pneumococcal vaccination Surgical History History of shoulder surgery History of colonoscopy History of vasectomy Family History Father Cancer Mother No problems noted. 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 Mark Sierra, Deanne Vera, Kali Leo and colleagues, with an educational vik from [employer]. Physical exam (Primary Care) Vital Signs: Last Vital Signs Pulse 75 07/18/25 15:12 Resp 16 07/18/25 15:12 BP 126/76 07/18/25 15:12 Pulse Ox 95 07/18/25 15:12 Oxygen Delivery Method Room Air 07/18/25 15:12 Tobacco/Smoking Status: Tobacco use Status Tobacco use date assessed 12/21/24 07/18/25 15:14 Patient Tobacco Use Status Former Tobacco user 07/18/25 15:14 e-Cigarette/Vaping Use Never Used 07/18/25 15:14 Thrive Assessment: Date of Thrive Assessment Date Thrive assessed 03/22/25 07/18/25 15:14 Coding Level of Care Code Est Pt Level 3 (02515) Diagnoses Stasis dermatitis of both legs I87.2 Leg wound, left S81.802A Assessment & Plan Assessment & Plan (1) Stasis dermatitis of both legs: Code(s): I87.2 - Venous insufficiency (chronic) (peripheral) Category: Medical (2) Leg wound, left: Code(s): S81.802A - Unspecified open wound, left lower leg, initial encounter Category: Medical Plan .
[2025-07-18 15:12] VITALS: BP 126/76; PULSE 75; RESP 16; O2SAT 95
--- OUTSIDE RECORDS SUMMARY | 2025-07-18 16:19 | XMS_ITS | Clinical Summary ---
Author Organization [address] [facility] Address [address] [place] [address] Phone Care Team Providers Care Front End Java Developer Name Role Phone Unavailable Primary Care Provider [...] Panel) 09/30/2024 Colorectal Cancer Screening: Colonoscopy 09/30/2024 Falls Risk Assessment 09/30/2024 Hepatitis C Screening 09/30/2024 Medicare Annual Wellness Visit 09/30/2024 Social Influencers of Health Screening 09/30/2024 Depression Screening 11/16/2024 Influenza Vaccine (#1) 2025 RSV Immunization Adult [...]
--- OUTSIDE RECORDS SUMMARY | 2025-07-18 16:19 | XMS_ITS | Encounter Summary ---
Author Organization [facility] Address [address] [place] [address] Care Team Providers Care Flooring Professional Name Role Phone Unavailable Primary Care Provider Unavailabl e Encounter Details Date Type Department Care Team (Late st Contact Info) Description 09/29/2024 Lab Requisition [facility] - Main Lab [address] [facility] [place] [address] Eula Baires MD [address] [place] [address] Roge ISAAC [address] Tinea pedis; Local infection of the skin [...] - 10/27/2024 2:05 PM EST Performed at: 01 - [facility] [address] [id number] Deli Department Manager: Luisana Padilla MD, Phone: [phone] Eula Baires MD LAB MICROBIOLOGY - GENERAL ELIZABETH WEAVER Final Result Performing Organization Address City/[facility]/ZIP Co de Phone Number [facility] * Organism ID ([facility] Bill Only) (09/29/2024 12:00 AM EST) Organism ID Performed 10/21/2024 6:05 PM EST [facility] Other Venous blood specimen / Unknown 09/29/2024 10/18/2024 11:21 AM EST Narrative [facility] - 10/21/2024 6:05 PM EST [facility]formed at: [facility] [address], [address], [place], [place] [id number] Deli Department Manager: Arik Wilks MD, Phone: [phone] Eula Baires MD LAB MICROBIOLOGY - GENERAL ELIZABETH WEAVER Final Result [facility] * (ABNORMAL) Organism identification yeast (09/29/2024 12:00 AM EST) Result 1 Malassezia pachydermatis(A ) 10/21/2024 6:05 PM EST [facility] Other 09/29/2024 10/18/2024 11: 21 AM EST Narrative [facility] - 10/21/2024 6:05 PM EST Performed at: - [address] [id number] Deli Department Manager: Luisana Padilla MD, Phone: [phone] Eula Baires MD LAB MICROBIOLOGY - GENERAL ORDE RABLES Final Result [facility] * (ABNORMAL) Fungal identification, yeast (09/29/2024 12:00 AM EST) Organism Identification , Yeast Final report(A) 10/21/2024 6:05 PM EST [facility] Other 09/29/2024 10/18/2024 11: 21 AM EST Narrative [facility] - 10/21/2024 6:05 PM EST Performed at: - [address] [id number] Deli Department Manager: Luisana Padilla MD, Phone: [phone] Eula Baires MD LAB MICROBIOLOGY - GENERAL ORDE RABLES Final Result [facility] * Fungal identification, mold (09/29/2024 12:00 AM EST) Organism Identification , Mold Final report 10/27/2024 2:05 PM EST [facility] Other Topography unknown / Unknown 09/29/2024 10/17/2024 12:17 PM EST Narrative [facility] - 10/27/2024 2:05 PM EST Performed at: [address] [id number] Deli Department Manager: Luisana Padilla MD, Phone: [phone] Eula Baires MD LAB MICROBIOLOGY - GENERAL ELIZABETH WEAVER Final Result [facility] * (ABNORMAL) Culture fungal, other (09/29/2024 12:00 AM EST) Culture, Fungus Yeast(A) DONNA 11/14/2024 2:58 PM EST [facility] Comment: Sent to reference lab for identification. For results refer to specimen [id number] The organism value for this result has been updated. These results have been appended to the previously preliminary verified report. Culture, Fungus Mold(A) DONNA 11/14/2024 2:58 PM EST [facility] Comment: Sent to reference lab. For results refer to specimen [id number] The organism value for this result has been updated. These results have been appended to the previously preliminary verified report. Skin 09/29/2024 09/29/2024 6:3 3 PM EST Eula Baires MD LAB MICROBIOLOGY - GENERAL ELIZABETH WEAVER Final Result Performing Organization Address [facility] Co de Phone Number [facility] [address] [place] [address], documented in this encounter Visit Diagnoses Diagnosis Tinea pedis Dermatophytosis of foot Local infection of the skin and subcutaneous tissue, unspecified Other atopic dermatitis documented in this encounter
== END 2025-07-18 16:47 | disposition home or self-care (01) ==
LOC: HO.HMCC 15:08
PROVIDERS: PCP Nurse Practitioner Family; Visit Provider Nurse Practitioner Family
DX: I87.2 Venous insufficiency (chronic) (peripheral) (principal); S81.802A Unspecified open wound, left lower leg, initial encounter

== ENCOUNTER → 2025-07-18 15:08 | Outpatient (BNVA) | payer MEDICARE, SELFPAY | PROVIDERS: PCP Nurse Practitioner Family; Visit Provider Nurse Practitioner Family | DX: I10 Essential (primary) hypertension (principal); I87.8 Other specified disorders of veins; L97.829 Non-pressure chronic ulcer of other part of left lower leg with unspecified severity; Z87.891 Personal history of nicotine dependence | CPT/HCPCS: 99212 ==

== ENCOUNTER 2025-08-16 11:30 | Outpatient (RCR) | payer MEDICARE, SELFPAY | END 2025-08-16 16:44 | disposition home or self-care (01) | LOC: HO.WCC 11:30 | PROVIDERS: PCP Nurse Practitioner Family; Visit Provider Surgery Surgical Oncology | DX: I87.302 Chronic venous hypertension (idiopathic) without complications of left lower extremity (principal); I73.9 Peripheral vascular disease, unspecified; Z09 Encounter for follow-up examination after completed treatment for conditions other than malignant neoplasm; Z87.2 Personal history of diseases of the skin and subcutaneous tissue; Z87.891 Personal history of nicotine dependence | CPT/HCPCS: 97597; 99212; 99213 ==

== ENCOUNTER 2025-08-31 08:25 | Outpatient (REF) | payer MEDICARE, SELFPAY ==
--- NOTE | ~2025-08-31 | US_ITS ---
EXAMINATION: US LOWER EXTREMITY VENOUS (REFLUX EXAM), BILATERAL CLINICAL INFORMATION: Venous insufficiency (chronic and peripheral) COMPARISON: None. TECHNIQUE: Color flow triplex imaging and compression Doppler was performed to evaluate both the deep and the superficial systems bilaterally. To evaluate the superficial system, the examination was performed in the upright position. Color-flow Doppler ultrasound and compression ultrasound were utilized. In addition, maneuvers were utilized to demonstrate reflux. FINDINGS: 1. DEEP VENOUS ULTRASOUND OF THE RIGHT LOWER EXTREMITY: Common Femoral Vein: Compressible, normal respiratory variation and augmented flow. Femoral Vein: Compressible, normal color flow and augmentation. Popliteal Vein: Compressible, normal augmentation. Deep Reflux: There is no evidence of reflux in the deep system in either the common femoral vein, superficial femoral or the popliteal vein. There is no evidence of a Cruz's cyst. 2. SUPERFICIAL ULTRASOUND WITH DOPPLER OF RIGHT LOWER EXTREMITY: GREAT SAPHENOUS VEIN: Saphenofemoral Junction: 0.8 cm; Reflux: 0 ms Proximal Thigh: 0.6 cm; Reflux: 0 ms Mid Thigh: 0.4 cm; Reflux: 0 ms Distal Thigh: 0.4 cm; Reflux: 0 ms At Knee: 0.3 cm; Reflux: 0 ms Proximal Calf: 0.4 cm; Reflux: 0 ms Mid Calf: 0.3 cm; Reflux: 984 ms Distal Calf: 0.2 cm; Reflux: 0 ms. Duplicated right saphenous vein: Proximal thigh: 0.3 cm without reflux. Mid thigh: 0.3 cm without reflux. DUPLICATED MEDIAL GREAT SAPHENOUS VEIN: Diameter: None imaged Reflux: NA DUPLICATED LATERAL GREAT SAPHENOUS VEIN: Diameter: None imaged Reflux: NA SMALL SAPHENOUS VEIN: Saphenopopliteal Junction: 0.2 cm; Reflux: 0 ms Proximal: 0.13 cm; Reflux: 0 ms Distal: 0.2 cm; Reflux: 0 ms VEIN OF GIACOMINI: Size: 0.3 cm. Reflux: NA PERFORATORS: Location: Distal calf. Size: 0.2 cm. Reflux: NA VARICOSITIES: Location: At the knee, proximal and mid calf. Size: 0.3-0.4 cm. Reflux: NA 3. DEEP VENOUS ULTRASOUND OF THE LEFT LOWER EXTREMITY: Common Femoral Vein: Compressible, normal respiratory variation and augmented flow. Femoral Vein: Compressible, normal color flow and augmentation. Popliteal Vein: Compressible, normal augmentation. Deep Reflux: 2256 ms reflux in the popliteal vein. There is no evidence of a Cruz's cyst. 4. SUPERFICIAL ULTRASOUND WITH DOPPLER OF LEFT LOWER EXTREMITY: GREAT SAPHENOUS VEIN: Saphenofemoral Junction: 0.7 cm; Reflux: 0 ms Proximal Thigh: 0.5 cm; Reflux: 0 ms Mid Thigh: 0.4 cm; Reflux: 0 ms Distal Thigh: 0.3 cm; Reflux: 0 ms At Knee: 0.3 cm; Reflux: 1492 ms Proximal Calf: 0.4 cm; Reflux: 0 ms Mid Calf: 0.4 cm; Reflux: 0 ms Distal Calf: 0.5 cm; Reflux: 0 ms DUPLICATED MEDIAL GREAT SAPHENOUS VEIN: Diameter: None imaged Reflux: NA DUPLICATED LATERAL GREAT SAPHENOUS VEIN: Diameter: 0.5 cm in the junction and 0.2 cm in the mid thigh. Reflux: NA SMALL SAPHENOUS VEIN: Saphenopopliteal Junction: 0.2 cm; Reflux: 0 ms Proximal: 0.2 cm; Reflux: 0 ms Distal: 0.3 cm; Reflux: 0 ms VEIN OF GIACOMINI: Size: NA Reflux: NA PERFORATORS: Location: Mid calf. Size: 0.2-0.3 cm. Reflux: 1568 ms in the mid calf. VARICOSITIES: Location: Proximal thigh. Proximal and distal calf. Size: 0.3-0.4 cm. Reflux: 1880 ms at the distal calf. US/US venous insuf bilat IMPRESSION: Right: Venous insufficiency, great saphenous vein at the mid calf. 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 Perforators and varices without reflux. Left: Venous insufficiency, great saphenous vein at the knee level. Reflux in the popliteal vein. Perforators with reflux in the mid calf. Varices with reflux in the distal calf. Electronically signed by: Joe Rouse MD 08/31/2025 09:52 AM EDT
--- OUTSIDE RECORDS SUMMARY | 2025-08-31 08:43 | XMS_ITS | Clinical Summary ---
Author Organization [address] [facility] Address [address] [place] [address] Phone Care Team Providers Care Supervisor Roving Department Name Role Phone Unavailable Primary Care Provider Unavailabl e Social History Tobacco Use Types Packs/Day Years Used Date Smoking Tobacco: Never Assessed Sex and Gender Information Value Date Recorded Sex Assigned at Not on file Legal Sex Male 6:16 PM EST Gender Identity Not on file Sexual Orientation Not on file Plan of Treatment Health Maintenance Due Date Last Done Comments Colorectal Cancer Screening: Colonoscopy 1958 DTaP,Tdap,and Td Vaccines (1 - Tdap) 1977 Pneumococcal Vaccine: 50+ Ye ars (1 of 1 - PCV) 2008 Zoster Vaccines (1 of 2) 2008 Abdominal Aortic Aneurysm (A AA) Screen 09/30/2024 Cholesterol Screening (Lipid Panel) 09/30/2024 Falls Risk Assessment 09/30/2024 Hepatitis C Screening 09/30/2024 Medicare Annual Wellness Visit 09/30/2024 Social Influencers of Health Screening 09/30/2024 Depression Screening 11/16/2024 COVID-19 Vaccine (1 - 2023-2 5 season) 2025 Influenza Vaccine (#1) 2025 RSV Immunization Adult [...]
--- OUTSIDE RECORDS SUMMARY | 2025-08-31 08:43 | XMS_ITS | Encounter Summary ---
Author Organization [facility] Address [address] [place] [address] Care Team Providers Care Assembler Leather Goods Name Role Phone Unavailable Primary Care Provider Unavailabl e Encounter Details Date Type Department Care Team (Late st Contact Info) Description 09/29/[address] [facility] - Main Lab [address] [facility] [place] [address] Eula Baires MD [address] [place] [address] Roge ISAAC [address] Tinea pedis; Local infection of the skin [...] PM EST Performed at: 01 - [facility] [address] [id number] Silk Screener: Luisana Padilla MD, Phone: [phone] Eula Baires MD LAB MICROBIOLOGY - GENERAL ELIZABETH WEAVER Final Result Performing Organization Address City/[facility]/ZIP Co de Phone Number [facility] * Organism ID ([facility] Bill Only) (09/29/2024 12:00 AM EST) Organism ID Performed 10/21/2024 6:05 PM EST [facility] Other Venous blood specimen / Unknown 09/29/2024 10/18/2024 11:21 AM EST Narrative [facility] - 10/21/2024 6:05 PM EST Performed at: 02 [facility] [address], [address], [place], [place] [id number] Silk Screener: Arik Wilks MD, Phone: [phone] Eula Baires MD LAB MICROBIOLOGY - GENERAL ELIZABETH WEAVER Final Result [facility] * (ABNORMAL) Organism identification yeast (09/29/2024 12:00 AM EST) Result 1 Malassezia pachydermatis(A ) 10/21/2024 6:05 PM EST [facility] Other 09/29/2024 10/18/2024 11: 21 AM EST Narrative [facility] - 10/21/2024 6:05 PM EST Performed at: - [address] [id number] Silk Screener: Luisana Padilla MD, Phone: [phone] Eula Baires MD LAB MICROBIOLOGY - GENERAL ORDE RABLES Final Result [facility] * (ABNORMAL) Fungal identification, yeast (09/29/2024 12:00 AM EST) Organism Identification , Yeast Final report(A) 10/21/2024 6:05 PM EST [facility] Other 09/29/2024 10/18/2024 11: 21 AM EST Narrative [facility] - 10/21/2024 6:05 PM EST Performed at: - [address] [id number] Silk Screener: Luisana Padilla MD, Phone: [phone] Eula Baires MD LAB MICROBIOLOGY - GENERAL ORDE RABLES Final Result [facility] * Fungal identification, mold (09/29/2024 12:00 AM EST) Organism Identification , Mold Final report 10/27/2024 2:05 PM EST [facility] Other Topography unknown / Unknown 09/29/2024 10/17/2024 12:17 PM EST Narrative [facility] - 10/27/2024 2:05 PM EST Performed at: [address] [id number] Silk Screener: Luisana Padilla MD, Phone: [phone] Eula Baires MD LAB MICROBIOLOGY - GENERAL ELIZABETH WEAVER Final Result [facility] * (ABNORMAL) Culture fungal, other (09/29/2024 12:00 AM EST) Culture, Fungus Yeast(A) DONNA 11/14/2024 2:58 PM EST [facility] Comment: Sent to reference lab for identification. For results refer to specimen [id number] The organism value for this result has been updated. These results have been appended to the previously preliminary verified report. Culture, Fungus Mold(A) DONNA 11/14/2024 2:58 PM EST [facility] Comment: Sent to reference lab. For results refer to specimen [id number] The organism value for this result has been updated. These results have been appended to the previously preliminary verified report. Skin 09/29/2024 09/29/2024 6:3 3 PM EST Eula Baires MD LAB MICROBIOLOGY - GENERAL ELIZABETH WEAVER Final Result Performing Organization Address [facility] Co de Phone Number [facility] [address] [place] [address], documented in this encounter Visit Diagnoses Diagnosis Tinea pedis Dermatophytosis of foot Local infection of the skin and subcutaneous tissue, unspecified Other atopic dermatitis documented in this encounter
--- OUTSIDE RECORDS SUMMARY | 2025-08-31 08:43 | XMS_ITS | Patient Health Record ---
Author Organization [facility] Address [address] [place] [address] Care Team Providers Care Car Cleaning Supervisor Name Role Phone CAROLEE BROWN Primary Care Provider Mark Jamison Unavailable [phone] Reason For Referral No Information Medications Medication SIG (Take, Route, Fr equency, Duration) Notes Start Date End Date Status Aspirin 81 mg Active Symbicort 160/4-5 Ac tive MoviPrep 100 GM as directed Orally a s directed; Duration: 1 dose 12/09/2013 Active Vitamin D Active ProAir HFA Active Problems Problem Type SNOMED Code ICD Code Onset Dates Problem Status W/U Status Risk Notes Problem Already on aspirin (269269343) Long-term (current) use of aspirin (V58.66) Active confirmed Problem Colon cancer screening (004504726) Colon cancer screening (V76.51) Active confirmed Problem History of adenomatous polyp of colon (803001999) History of adenomatous polyp of colon (V12.72) Active confirmed Plan Of Treatment Future Test Test Name Order Date COLONOSCOPY 12/09/2013 Insurance Providers Payer Name Payer Address Payer Phone Subscriber Number Group Number Insured Name Patient Relationship to Insured Coverage Start Date Coverage End Date [facility] [address] [place], [place] [id number] MICHOACANO MCKEON Self - patient is the insured Medical (General) History Medical History History ICD Code colonoscopy 04-05-2009--1 tubular adenoma removed asthma/COPD Denies [place],DM,CVA,renal disease Neg ETT in approx 2011 Surgical History Surgery Date(Month/Year) nasal surgery vasectomy shoulder surgery
== END 2025-08-31 08:26 | disposition home or self-care (01) ==
LOC: HO.US 08:25
PROVIDERS: PCP Nurse Practitioner Family; Visit Provider Nurse Practitioner Family
DX: I87.2 Venous insufficiency (chronic) (peripheral) (principal)
CPT/HCPCS: 93970

== ENCOUNTER → 2025-08-31 08:30 | Outpatient (BNV) | payer MEDICARE, SELFPAY | PROVIDERS: PCP Nurse Practitioner Family; Visit Provider Radiology Diagnostic Radiology | DX: I83.893 Varicose veins of bilateral lower extremities with other complications (principal) | CPT/HCPCS: 93970 ==

== ENCOUNTER → 2025-09-05 10:19 | Outpatient (REF) | payer MEDICARE, SELFPAY ==
--- OUTSIDE RECORDS SUMMARY | 2025-09-05 12:14 | XMS_ITS | Patient Health Record ---
Author Organization [facility] Address [address] [place] [address] Care Team Providers Care Delphi Developer Name Role Phone CAROLEE BROWN Primary Care Provider Mark Jamison Unavailable [phone] Reason For Referral No Information Medications Medication [...] Status Risk Notes Problem Already on aspirin (245789354) Long-term (current) use of aspirin (V58.66) Active confirmed Problem Colon cancer screening (589923312) Colon cancer screening (V76.51) Active confirmed Problem History of adenomatous polyp of colon (194998010) History of adenomatous polyp of colon (V12.72) Active confirmed Plan Of Treatment Future Test Test Name Order Date COLONOSCOPY 12/09/2013 Insurance Providers Payer Name Payer Address Payer Phone Subscriber Number Group Number Insured Name Patient Relationship to Insured Coverage Start Date Coverage End Date [facility] [address] [place], [place] [id number] MICHOACANO MCKEON Self - patient is the insured Medical (General) History Medical History History ICD Code colonoscopy 04-05-2009--1 tubular adenoma removed asthma/COPD Denies [place],DM,CVA,renal disease Neg ETT in approx 2011 Surgical History Surgery Date(Month/Year) nasal surgery vasectomy shoulder surgery
== END ==
LOC: HO.SL 10:19
PROVIDERS: PCP Nurse Practitioner Family; Visit Provider Physician Assistant Medical
DX: G47.19 Other hypersomnia (principal); R06.83 Snoring; R40.0 Somnolence
CPT/HCPCS: 95810

== ENCOUNTER → 2025-09-05 10:41 | Outpatient (BNV) | payer MEDICARE, SELFPAY | PROVIDERS: PCP Nurse Practitioner Family; Visit Provider Psychiatry & Neurology Neurology | DX: G47.33 Obstructive sleep apnea (adult) (pediatric) (principal) | CPT/HCPCS: 95810 ==

== ENCOUNTER 2025-09-08 08:46 | Outpatient (AMB) | payer MEDICARE, SELFPAY ==
--- NOTE | 2025-09-08 08:58 | A.OFFVIS_ITS ---
Vital Signs 09/08/25 08:59 Height 6 ft Weight 277 lb BMI 37.6 Intake Visit Reasons: [employer]/WoundCare referral for non-healing ulcer Intake Note: [employer]/PCP referral for s/p US 08/31/25 w/ non-healing wound. Pt states started 2.5 yrs ago when he retired. Pt states he decreased activity when he retired and states he started walking to exercise at the begining of Jul. Pt w as going to woundcare and states he has graduated. WOund was on the left LE. Does have bilateral LE swelling and discoloration. Did have blistering, does not at this time. Plan Rep Required: No Accompanied by: Self / Same As Patient Allergies nuts Allergy (Severe, Uncoded 09/08/25 09:03) Anaphylaxis soap Adverse Reaction (Intermediate, Uncoded 09/08/25 09:03) rash HPI HPI [employer]/WoundCare referral for non-healing ulcer: Details: The patient is a 65-year-old male presenting with a nonhealing ulcer on the left calf. The ulcer began as a blister without any trauma and subsequently ruptured, leading to persistent leakage. The patient sought medical attention after noticing the persistent nature of the wound. The patient has a history of venous insufficiency, which was confirmed through prior testing. He reports that his legs have been swollen for approximately two and a half years, coinciding with his fci. The swelling has improved with increased physical activity, specifically walking. The patient has a history of eczema, which has been present since childhood. He also reports an allergy to perfumed soaps and certain nuts, which exacerbates his skin condition. [facility], LAT[facility] Medical History HTN (hypertension) Pulmonary hypertension COPD (chronic obstructive pulmonary disease) BRADEN (obstructive sleep apnea) Fatty liver Diverticulosis History of colon polyps Eczematous dermatitis Obesity Personal history of nicotine dependence Refused pneumococcal vaccination Surgical History History of shoulder surgery History of colonoscopy History of vasectomy Family History Father Cancer Mother No problems noted. 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 [employer] Current occupational exposures/hazards: No Cognitive needs: No Hearing needs: No Vision needs: Yes (Bifocals) Review of Systems Const Reports as per HPI ENT Reports no additional complaints Card Denies chest pain, Denies chest pain at rest and Denies chest pain with activity Resp Denies chest congestion and Denies cough GI Reports no additional complaints Musc Details: pain over varicosities, aching of lower extremities, swelling, cramping, heaviness and tiredness, itching Denies abnormal gait Skin/Breast Reports pruritus and Denies wounds Neuro Reports no additional complaints and Denies abnormal gait Psych Denies no additional complaints Physical Exam Vital Signs: BMI result Body Mass Index 37.6 Const General: cooperative, healthy appearing and comfortable Orientation/consciousness: oriented to person, oriented to place and oriented to time Neck Carotids: no bruits Chest Chest palpation & inspection: normal inspection of the chest and normal palpation of entire chest wall Resp Effort & Inspection: normal respiratory effort and able to speak in complete sentences Cardio Rate: regular rate Heart sounds: S1 normal heart sound present and S2 normal heart sound present Peripheral pulses: Peripheral pulses 2+ throughout GI Inspection: Yes normal to inspection Skin Other: +2 edema, large rope-like varicosities greater than 4 mm CEAP Classification C6 - ulcer left calf Ep - Etiology Primary As - superficial veins P - reflux General skin exam: dry skin Neuro General: oriented to person, oriented to place and oriented to time Extrem Right lower extremity: full ROM, normal capillary refill and edema Left lower extremity: full ROM, normal capillary refill and edema Psych Mental Status: mental status grossly normal Results Reviewed Results Reviewed: Brief summary of venous insufficiency testing is as follows: right great saphenous vein: Positive right small saphenous vein: negative right accessory vein: none present left great saphenous vein: Positive left small saphenous vein: negative left accessory vein: none present Please note there is no evidence of any venous aneurysms or significant tortuosity Assessment & Plan Assessment & Plan (1) Varicose veins of left lower extremity with inflammation: Code(s): I83.12 - Varicose veins of left lower extremity with inflammation Category: Medical Plan: This patient has varicose veins with inflammation. They continue to be a source of discomfort for the patient. The patient has tried conservative treatment with compression, leg elevation and exercise program for over 3 months time. They have been compliant with all treatment. This has provided minimal relief for the patient. I do not anticipate this course of treatment will alter the underlying etiology. The patient has been scheduled for lower extremity venous treatment inclusive of --- left great saphenous vein Cyanoacralate ablation. Risks, benefits, and complications of this procedure has been discussed in detail with the patient including but not limited to bleeding, infection, and the development of a DVT. The patient has demonstrated a clear understanding and has consented. We will schedule the patient as soon as possible. Thank you for allowing us to participate in this patient's care. If there are any questions or concerns please do not hesitate to contact us. Coding Level of Care Code New Pt Level 4 (84618) Diagnoses Varicose veins of left lower extremity with inflammation I83.12
[2025-09-08 08:59] VITALS: BMI 37.6
--- OUTSIDE RECORDS SUMMARY | 2025-09-08 09:23 | XMS_ITS | Patient Health Record ---
Author Organization [facility] Address [address] [place] [address] Care Team Providers Care Bright Cutter Name Role Phone CAROLEE BROWN Primary Care Provider Mark Jamison Unavailable [phone] Reason For Referral No Information Medications Medication SIG (Take, Route, Fr equency, Duration) Notes Start Date End Date Status Aspirin 81 mg Active Symbicort 160/4-5 Ac tive MoviPrep 100 GM as directed Orally a s directed; Duration: 1 dose 12/09/2013 Active Vitamin D Active ProAir HFA Active Problems Problem Type SNOMED Code ICD Code Onset Dates Problem Status W/U Status Risk Notes Problem Information temporarily unavailable Long-term (current) use of aspirin (V58.66) Active confirmed Problem Information temporarily unavailable Colon cancer screening (V76.51) Active confirmed Problem Information temporarily unavailable History of adenomatous polyp of colon (V12.72) Active confirmed Plan Of Treatment Future Test Test Name Order Date COLONOSCOPY 12/09/2013 Insurance Providers Payer Name Payer Address Payer Phone Subscriber Number Group Number Insured Name Patient Relationship to Insured Coverage Start Date Coverage End Date [facility] [address] [place], [place] [id number] MICHOACANO MCKEON Self - patient is the insured Medical (General) History Medical History History ICD Code colonoscopy 04-05-2009--1 tubular adenoma removed asthma/COPD Denies [place],DM,CVA,renal disease Neg ETT in approx 2011 Surgical History Surgery Date(Month/Year) nasal surgery vasectomy shoulder surgery
--- OUTSIDE RECORDS SUMMARY | 2025-09-08 09:24 | XMS_ITS | Encounter Summary ---
Author Organization [facility] Address [address] [place] [address] Care Team Providers Care Lodge Officer Name Role Phone Unavailable Primary Care Provider Unavailabl e Encounter Details Date Type Department Care Team (Late st Contact Info) Description 09/29/2024 Lab Requisition [facility] - Main Lab [address] [facility] [place] [address] Eula Baires MD [address] [place] [address] Roge ISAAC [address] Tinea pedis; Local infection of the skin [...] PM EST Performed at: 01 - [facility] [address] [id number] Senior Interactive Developer: Luisana Padilla MD, Phone: [phone] Eula Baires MD LAB MICROBIOLOGY - GENERAL ELIZABETH WEAVER Final Result Performing Organization Address City/[facility]/ZIP Co de Phone Number [facility] * Organism ID ([facility] Bill Only) (09/29/2024 12:00 AM EST) Organism ID Performed 10/21/2024 6:05 PM EST [facility] Other Venous blood specimen / Unknown 09/29/2024 10/18/2024 11:21 AM EST Narrative [facility] - 10/21/2024 6:05 PM EST Performed at: 02 [facility] [address], [address], [place], [place] [id number] Senior Interactive Developer: Arik Wilks MD, Phone: [phone] Eula Baires MD LAB MICROBIOLOGY - GENERAL ELIZABETH WEAVER Final Result [facility] * (ABNORMAL) Organism identification yeast (09/29/2024 12:00 AM EST) Result 1 Malassezia pachydermatis(A ) 10/21/2024 6:05 PM EST [facility] Other 09/29/2024 10/18/2024 11: 21 AM EST Narrative [facility] - 10/21/2024 6:05 PM EST Performed at: - [address] [id number] Senior Interactive Developer: Luisana Padilla MD, Phone: [phone] Eula Baires MD LAB MICROBIOLOGY - GENERAL ORDE RABLES Final Result [facility] * (ABNORMAL) Fungal identification, yeast (09/29/2024 12:00 AM EST) Organism Identification , Yeast Final report(A) 10/21/2024 6:05 PM EST [facility] Other 09/29/2024 10/18/2024 11: 21 AM EST Narrative [facility] - 10/21/2024 6:05 PM EST Performed at: - [address] [id number] Senior Interactive Developer: Luisana Padilla MD, Phone: [phone] Eula Baires MD LAB MICROBIOLOGY - GENERAL ORDE RABLES Final Result [facility] * Fungal identification, mold (09/29/2024 12:00 AM EST) Organism Identification , Mold Final report 10/27/2024 2:05 PM EST [facility] Other Topography unknown / Unknown 09/29/2024 10/17/2024 12:17 PM EST Narrative [facility] - 10/27/2024 2:05 PM EST Performed at: [address] [id number] Senior Interactive Developer: Luisana Padilla MD, Phone: [phone] Eula Baires MD LAB MICROBIOLOGY - GENERAL ELIZABETH WEAVER Final Result [facility] * (ABNORMAL) Culture fungal, other (09/29/2024 12:00 AM EST) Culture, Fungus Yeast(A) DONNA 11/14/2024 2:58 PM EST [facility] Comment: Sent to reference lab for identification. For results refer to specimen [id number] The organism value for this result has been updated. These results have been appended to the previously preliminary verified report. Culture, Fungus Mold(A) DONNA 11/14/2024 2:58 PM EST [facility] Comment: Sent to reference lab. For results refer to specimen [id number] The organism value for this result has been updated. These results have been appended to the previously preliminary verified report. Skin 09/29/2024 09/29/2024 6:3 3 PM EST Eula Baires MD LAB MICROBIOLOGY - GENERAL ELIZABETH WEAVER Final Result Performing Organization Address [facility] Co de Phone Number [facility] [address] [place] [address], documented in this encounter Visit Diagnoses Diagnosis Tinea pedis Dermatophytosis of foot Local infection of the skin and subcutaneous tissue, unspecified Other atopic dermatitis documented in this encounter
--- OUTSIDE RECORDS SUMMARY | 2025-09-08 09:24 | XMS_ITS | Clinical Summary ---
Author Organization [address] [facility] Address [address] [place] [address] Phone Care Team Providers Care Perfume And Toilet Water Maker Name Role Phone Unavailable Primary Care Provider [...]
== END 2025-09-08 09:40 | disposition home or self-care (01) ==
LOC: HO.HVS 08:47
PROVIDERS: PCP Nurse Practitioner Family; Visit Provider Surgery Vascular Surgery
DX: I83.12 Varicose veins of left lower extremity with inflammation (principal)
CPT/HCPCS: 99204

== ENCOUNTER → 2025-09-08 08:46 | Outpatient (BNVA) | payer MEDICARE, SELFPAY | PROVIDERS: PCP Nurse Practitioner Family; Visit Provider Surgery Vascular Surgery | DX: I83.12 Varicose veins of left lower extremity with inflammation (principal) | CPT/HCPCS: 99202 ==

== ENCOUNTER 2025-09-18 10:49 | Outpatient (REF) | payer MEDICARE, SELFPAY ==
--- OUTSIDE RECORDS SUMMARY | 2025-09-18 13:18 | XMS_ITS | Patient Health Record ---
Author Organization [facility] Address [address] [place] [address] Care Team Providers Care Electrical Discharge Machine Operator Name Role Phone CAROLEE BROWN Primary Care Provider Mark Jamison Unavailable [phone] Reason For Referral No Information Medications Medication [...] Status Risk Notes Problem Already on aspirin (030442046) Long-term (current) use of aspirin (V58.66) Active confirmed Problem Colon cancer screening (688417465) Colon cancer screening (V76.51) Active confirmed Problem History of adenomatous polyp of colon (173470749) History of adenomatous polyp of colon (V12.72) Active confirmed Plan Of Treatment Future Test Test Name Order Date COLONOSCOPY 12/09/2013 Insurance Providers Payer Name Payer Address Payer Phone Subscriber Number Group Number Insured Name Patient Relationship to Insured Coverage Start Date Coverage End Date [facility] [address] [place], [place] [id number] [phone] [id number] MICHOACANO MCKEON Self - patient is the insured Medical (General) History Medical History History ICD Code colonoscopy 04-05-2009--1 tubular adenoma removed asthma/COPD Denies [place],DM,CVA,renal disease Neg ETT in approx 2011 Surgical History Surgery Date(Month/Year) nasal surgery vasectomy shoulder surgery
[2025-09-18 13:31] LABS: Appearance Urine Clear; Glucose Urine UA Negative (Negative); PH 5.0 (5.0-9.0); Specific Gravity - Urine 1.025 (1.005-1.025); UMIC TRIGGER UACC YES
[2025-09-18 13:37] LABS: MANUAL DIFF FLAG NO
[2025-09-18 13:41] LABS: Hematocrit 45.6 % (42.0-52.0); Hemoglobin 15.2 g/dl (14.0-18.0); Imm Gran Abs Auto 0.10 X10*3/uL (0.00-0.03); Imm Gran Pct Auto 1.1 % (0.0-0.4); Lymphocytes Absolute Auto 2.0 X10*3/uL (1.2-4.9); Mean Corpuscular HGB Conc 33.3 g/dl (31.0-36.0); Mean Corpuscular Hemoglobin 30.8 pg (27.0-33.0); Mean Corpuscular Volume 92.5 fL (80.0-98.0); NRBC Abs Auto 0.000 X10*3/uL (0.0-0.012); NRBC Pct Auto 0.0 /100WBC (0.0-0.2); Platelet Count 322 X10*3/uL (160-400); Red Blood Count 4.93 X10*6/uL (4.60-5.80); White Blood Count 9.2 X10*3/uL (4.8-10.8)
[2025-09-18 14:03] LABS: Alanine Aminotransferase 41 U/L (0-40); Albumin Level 4.4 g/dL (3.5-5.0); Alkaline Phosphatase 78 U/L (39-117); Anion Gap 9 (12-20); Aspartate Amino Transferase 47 U/L (5-37); Blood Urea Nitrogen 24 mg/dL (9-16); Calcium 10.0 mg/dL (8.4-10.2); Carbon Dioxide 32 mmol/L (22-29); Chloride 102 mmol/L (96-108); Cholesterol 231 mg/dL (<200); Estimated Glomerular Filt Rate 40; HDL Cholesterol 36 mg/dL (>40); Iron 174 mcg/dL (45-160); Percent Iron Saturation 59 % (15-50); Potassium 4.1 mmol/L (3.3-5.1); Sodium 139 mmol/L (135-145); Total Iron Binding Capacity 293 mcg/dL (228-428); Total Protein 7.8 g/dL (6.5-8.0); Triglycerides 199 mg/dL (<150); Unsaturated Iron Binding 119 ug/dL
[2025-09-18 14:24] LABS: Ferritin 158 ng/mL (20-250)
[2025-09-18 14:34] LABS: Folate 10.2 ng/mL (> or = 4.0); Vitamin B12 442 pg/mL (200-900)
== END 2025-09-18 10:50 | disposition home or self-care (01) ==
LOC: HO.HMGCLDS 10:49
PROVIDERS: PCP Nurse Practitioner Family; Visit Provider Nurse Practitioner Family
DX: Z12.5 Encounter for screening for malignant neoplasm of prostate (principal); I10 Essential (primary) hypertension; R74.02 Elevation of levels of lactic acid dehydrogenase [LDH]
CPT/HCPCS: 36415; 80053; 80061; 81001; 81003; 82607; 82728; 82746; 83540; 83615; 84153; 84443; 85025

== ENCOUNTER 2025-09-22 07:18 | Outpatient (AMB) | payer MEDICARE, SELFPAY ==
--- OUTSIDE RECORDS SUMMARY | 2025-09-22 07:22 | XMS_ITS | Patient Health Record ---
Author Organization [facility] Address [address] [place] [address] Care Team Providers Care Short Haul Driver Name Role Phone CAROLEE BROWN Primary Care Provider Mark Jamison Unavailable [phone] Reason For Referral No Information Medications Medication [...] Status Risk Notes Problem Already on aspirin (014116243) Long-term (current) use of aspirin (V58.66) Active confirmed Problem Colon cancer screening (069162957) Colon cancer screening (V76.51) Active confirmed Problem History of adenomatous polyp of colon (538526626) History of adenomatous polyp of colon (V12.72) Active confirmed Plan Of Treatment Future Test Test Name Order Date COLONOSCOPY 12/09/2013 Insurance Providers Payer Name Payer Address Payer Phone Subscriber Number Group Number Insured Name Patient Relationship to Insured Coverage Start Date Coverage End Date [facility] [address] [place], [place] [id number] MICHOACANO MCKEON Self - patient is the insured Medical (General) History Medical History History ICD Code colonoscopy 04-05-2009--1 tubular adenoma removed asthma/COPD Denies [place],DM,CVA,renal disease Neg ETT in approx 2011 Surgical History Surgery Date(Month/Year) nasal surgery vasectomy shoulder surgery
--- OUTSIDE RECORDS SUMMARY | 2025-09-22 07:22 | XMS_ITS | Clinical Summary ---
Author Organization [address] [facility] Address [address] [place] [address] Phone Care Team Providers Care Boat Ride Operator Name Role Phone Unavailable Primary Care [...]
--- OUTSIDE RECORDS SUMMARY | 2025-09-22 07:22 | XMS_ITS | Encounter Summary ---
Author Organization [facility] Address [address] [place] [address] Care Team Providers Care Curb Worker Name Role Phone Unavailable Primary Care Provider Unavailabl e Encounter Details Date Type Department Care Team (Late st Contact Info) Description 09/29/2024 Lab Requisition [facility] - Main Lab [address] [facility] [place] [address] Eula Baires MD [address] [place] [address] Roge ISAAC [address] Tinea pedis; Local infection of the skin [...] PM EST Performed at: 01 - [facility] [address] [id number] Automobile Mechanic: Luisana Padilla MD, Phone: [phone] Eula Baires MD LAB MICROBIOLOGY - GENERAL ELIZABETH WEAVER Final Result Performing Organization Address City/[facility]/ZIP Co de Phone Number [facility] * Organism ID ([facility] Bill Only) (09/29/2024 12:00 AM EST) Organism ID Performed 10/21/2024 6:05 PM EST [facility] Other Venous blood specimen / Unknown 09/29/2024 10/18/2024 11:21 AM EST Narrative [facility] - 10/21/2024 6:05 PM EST Performed at: 02 [facility] [address], [address], [place], [place] [id number] Automobile Mechanic: Arik Wilks MD, Phone: [phone] Eula Baires MD LAB MICROBIOLOGY - GENERAL ELIZABETH WEAVER Final Result [facility] * (ABNORMAL) Organism identification yeast (09/29/2024 12:00 AM EST) Result 1 Malassezia pachydermatis(A ) 10/21/2024 6:05 PM EST [facility] Other 09/29/2024 10/18/2024 11: 21 AM EST Narrative [facility] - 10/21/2024 6:05 PM EST Performed at: - [address] [id number] Automobile Mechanic: Luisana Padilla MD, Phone: [phone] Eula Baires MD LAB MICROBIOLOGY - GENERAL ORDE RABLES Final Result [facility] * (ABNORMAL) Fungal identification, yeast (09/29/2024 12:00 AM EST) Organism Identification , Yeast Final report(A) 10/21/2024 6:05 PM EST [facility] Other 09/29/2024 10/18/2024 11: 21 AM EST Narrative [facility] - 10/21/2024 6:05 PM EST Performed at: - [address] [id number] Automobile Mechanic: Luisana Padilla MD, Phone: [phone] Eula Baires MD LAB MICROBIOLOGY - GENERAL ORDE RABLES Final Result [facility] * Fungal identification, mold (09/29/2024 12:00 AM EST) Organism Identification , Mold Final report 10/27/2024 2:05 PM EST [facility] Other Topography unknown / Unknown 09/29/2024 10/17/2024 12:17 PM EST Narrative [facility] - 10/27/2024 2:05 PM EST Performed at: [address] [id number] Automobile Mechanic: Luisana Padilla MD, Phone: [phone] Eula Baires MD LAB MICROBIOLOGY - GENERAL ELIZABETH WEAVER Final Result [facility] * (ABNORMAL) Culture fungal, other (09/29/2024 12:00 AM EST) Culture, Fungus Yeast(A) DONNA 11/14/2024 2:58 PM EST [facility] Comment: Sent to reference lab for identification. For results refer to specimen [id number] The organism value for this result has been updated. These results have been appended to the previously preliminary verified report. Culture, Fungus Mold(A) DONNA 11/14/2024 2:58 PM EST [facility] Comment: Sent to reference lab. For results refer to specimen [id number] The organism value for this result has been updated. These results have been appended to the previously preliminary verified report. Skin 09/29/2024 09/29/2024 6:3 3 PM EST Eula Baires MD LAB MICROBIOLOGY - GENERAL ELIZABETH WEAVER Final Result Performing Organization Address [facility] Co de Phone Number [facility] [address] [place] [address], documented in this encounter Visit Diagnoses Diagnosis Tinea pedis Dermatophytosis of foot Local infection of the skin and subcutaneous tissue, unspecified Other atopic dermatitis documented in this encounter
[2025-09-22 07:28] VITALS: BMI 37.6
--- NOTE | 2025-09-22 07:28 | MHC.OFFVIS ---
Vital Signs 09/22/25 07:28 Height 6 ft Weight 277 lb BMI 37.6 Intake Visit Reasons: Left GSV Venaseal Accompanied by: Self / Same As Patient Allergies nuts Allergy (Severe, Uncoded 09/22/25 07:29) Anaphylaxis soap Adverse Reaction (Intermediate, Uncoded 09/22/25 07:29) rash [facility] Medical History HTN (hypertension) Pulmonary hypertension COPD (chronic obstructive pulmonary disease) BRADEN (obstructive sleep apnea) Fatty liver Diverticulosis History of colon polyps Eczematous dermatitis Obesity Personal history of nicotine dependence Refused pneumococcal vaccination Surgical History History of shoulder surgery History of colonoscopy History of vasectomy Family History Father Cancer Mother No problems noted. 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 [employer] Current occupational exposures/hazards: No Cognitive needs: No Hearing needs: No Vision needs: Yes (Bifocals) Physical Exam Vital Signs: BMI result Body Mass Index 37.6 Office Procedures Vascular Office Procedure Details Details: Diagnosis: Left Leg varicose veins with inflammation Procedure: Endovenous Ablation of the left Great Saphenous Vein with VenaSeal Closure System Anesthesia: Local infiltration 5 cc, Platinum And Palladium Kettle Tender: none Estimated Blood Loss: min Specimen: none Duplex ultrasound was used to map out the insufficient saphenous vein, and access was determined and marked on the overlying skin. The depth and diameter of the vein(s) to be treated was documented. The patient was placed supine on the procedure table and the leg was prepped and draped using sterile technique. Ultasound guidance was again used to localize the access site. 1% lidocaine was injected as a local anesthetic in the subcutaneous tissues at the target location in the GSV in the lower leg. Using ultrasound guidance, access was gained at this location with the 19 gauge thin walled access needle and followed by introduction of a short guidewire, location confirmed with ultrasound. A small, 3 mm incision was made at the access site to allow for introduction and placement of the 7 Fr x7cm introducer/dilator. The dilator and guidewire were removed. The 0.035 guidewire from the VenaSeal kit was then introduced and positioned at the saphenofemoral junction using ultrasound guidance. The 80 cm 7 Fr introducer sheath/dilator was positioned 5cm from the saphenofemoral junction. The guidewire and dilator were removed, and the remaining sheath was flushed with sterile saline, with the syringe remaining in place prior to the next steps. The cyanoacrylate adhesive was precisely primed into the 5 F delivery catheter and this catheter/syringe combination was attached within the dispenser gun. This assembly was introduced through the 7F sheath and positioned 5 cm caudal of the saphenofemoral junction under ultrasound guidance. The steps from the IFU were followed for dispensing amounts, locations and compression times, 2 aliquots proximally with 3 minutes of compression, and 1 aliquot every 3 cm distally with 30 sec of compression along the course of the vessel. Following the last injection and compression sequence, the catheter and introducer sheath were pulled out from the access site. Hemostasis was achieved with manual compression and an adhesive bandage was applied to the incision. Ultrasound confirmed complete coaptation and closure of the treated segments of the GSV, and the absence of any DVT at the saphenofemoral junction. Treatment time was approximately 6 minutes and the vein length treated was 32 cm. The drapes were removed and the patient cleaned and prepared for discharge. Post op ultrasound check is scheduled for 48-72 hours and the patient was given written post-op instructions. 00193 - Endoven Ther Chem Adhes 1st All charges added?: Procedure code (CPT) selection complete Assessment & Plan Assessment & Plan (1) Varicose veins of left lower extremity with inflammation: Comment: 09/22/2025 - left great saphenous vein Cyanoacralate ablation Code(s): I83.12 - Varicose veins of left lower extremity with inflammation Category: Medical Plan: See op note Coding Level of Care Code Procedure Only Diagnoses Varicose veins of left lower extremity with inflammation I83.12 CPT Codes Details - Vascular 3: 12113 - Endoven Ther Chem Adhes 1st ([id number])
== END 2025-09-22 08:30 | disposition home or self-care (01) ==
LOC: HO.HVS 07:19
PROVIDERS: PCP Nurse Practitioner Family; Visit Provider Surgery Vascular Surgery
DX: I83.12 Varicose veins of left lower extremity with inflammation (principal)
CPT/HCPCS: 36482

== ENCOUNTER → 2025-09-22 07:18 | Outpatient (BNVA) | payer MEDICARE, SELFPAY | PROVIDERS: PCP Nurse Practitioner Family; Visit Provider Surgery Vascular Surgery | DX: I83.12 Varicose veins of left lower extremity with inflammation (principal) | CPT/HCPCS: 36482; J2003 ==

== ENCOUNTER 2025-09-26 09:52 | Outpatient (AMB) | payer MEDICARE, SELFPAY ==
--- NOTE | 2025-09-26 10:10 | MHC.PC.OV ---
Vital Signs 09/26/25 10:11 Height 6 ft Weight 273 lb BMI 37.0 BP 128/68 Blood Pressure Location Lt brachial Position Sitting Respiration 16 Pulse 70 Pulse Source Pulse Oximeter Temp 98.6 F Temp Source Oral Pulse Oximetry (%) 96 Oxygen Delivery Method Room Air Intake Visit Reasons: 6 months f/up Desktop Publishing Specialist Required: No Accompanied by: Self / Same As Patient Allergies nuts Allergy (Severe, Uncoded 09/26/25 10:13) Anaphylaxis soap Adverse Reaction (Intermediate, Uncoded 09/26/25 10:13) rash Tobacco use date assessed: 09/26/25 Fall risk assessment: No Falls in past year Last assessed Fall Risk: 09/26/25 Dental Screening Dental Screen Date: 09/26/25 Did you have a dental visit in the last 12 months?: Yes Did you have a dental problem in the last 6 months where you did not have access to dental care?: No Was dental information given to patient?: Patient has dentist HPI 6 months f/up HPI Details Chief Complaint The patient presents for a generalized follow-up visit, primarily for management of hypertension. History of Present Illness The patient is a 65-year-old male presenting for a generalized follow-up visit with a focus on hypertension management. His blood pressure remains stable on losartan and hydrochlorothiazide. Recent laboratory results showed a slight elevation in creatinine, and his low blood count has resolved and is now stable. His liver enzymes and cholesterol were also slightly elevated. The patient reports ongoing left breast tenderness, mainly in the areolar region, for approximately two months. He denies any chest pain, blurred vision, headache, or dizziness. The patient is retired and reports being less active with dietary changes. Social History - Employment: The patient is retired. - Activity Level: He is not as active since retiring. - Diet: He reports treating himself more with his diet. Health Maintenance - The importance of dietary control, adequate hydration, and staying active was reinforced. Review of Systems - Cardiovascular: Denies chest pain. - Neurological: Denies headache and dizziness. - Eyes: Denies blurred vision. - Breast: Reports left breast tenderness in the areolar region for approximately two months. Physical Exam General: Cooperative, healthy appearing, comfortable, no acute distress and well developed Orientation: Patient oriented x3 Limitations: No limitations Head: Normal to inspection Ears: Hearing grossly normal bilaterally Nose: Normal external nose present Face and sinus: Normal facial exam Eyes: Appearance normal, both eyes and all related structures Neck: Normal visual inspection and Yes full ROM Respiratory: Slightly diminished, lungs are fairly clear bilaterally Cardiovascular: Regular rate and rhythm. Normal S1 and S2, systolic murmur noted faint GI: Normal to inspection. Soft to palpation and nontender Skin: No rashes or lesions noted Neuro: Patient oriented x3 Extremities: Trace edema by lower extremities Results - Labs: Recent labs showed a slightly elevated creatinine, elevated liver enzymes, and elevated cholesterol. - A prior low blood count has resolved and is now stable. Plan 1. Hypertension The patient's blood pressure is stable on his current regimen of losartan and hydrochlorothiazide. A decision to possibly decrease either hydrochlorothiazide or losartan may be made in the near future, pending the results of a repeat creatinine test. 2. Elevated Creatinine The patient's recent creatinine level was slightly elevated. He will be instructed to increase his fluid intake, and a repeat lab test will be ordered to recheck this value. 3. Hypercholesterolemia The patient's cholesterol is elevated, and the plan is to increase his statin medication. Dietary control was also emphasized. repeat lab in 2 months 4. Elevated Liver Enzymes A slight elevation in liver enzymes is noted, which is thought to be related to recent lifestyle changes, including reduced activity and dietary adjustments since retiring. The patient was counseled on the importance of diet and staying active. 5. Left Breast Tenderness The patient reports left breast tenderness for about two months in the areolar region. An ultrasound of the left breast will be ordered for further evaluation. Discussion Notes I discussed the patient's recent lab results, noting the slight elevation in his creatinine. I advised him to increase hydration before we repeat the test. I also explained that the elevations in his liver enzymes and cholesterol are likely related to being less active and changes in his diet since long term. We will increase his statin medication to address the cholesterol. Regarding the left breast tenderness, although no lumps were palpated, I am ordering an ultrasound for further investigation. I reinforced the importance of dietary control, staying hydrated, and remaining active for his overall health management. Patient Instructions - Drink plenty of fluids. - You will need to get your blood re-checked to look at your kidney function. - We are increasing your cholesterol medication. - An ultrasound of your left breast will be scheduled to check the tender area. - It is important to pay attention to your diet and stay active. [facility] Medical History HTN (hypertension) Pulmonary hypertension COPD (chronic obstructive pulmonary disease) BRADEN (obstructive sleep apnea) Fatty liver Diverticulosis History of colon polyps Eczematous dermatitis Obesity Personal history of nicotine dependence Refused pneumococcal vaccination Surgical History History of shoulder surgery History of colonoscopy History of vasectomy Family History Father Cancer Mother No problems noted. 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 [employer] Current occupational exposures/hazards: No Cognitive needs: No Hearing needs: No Vision needs: Yes (Bifocals) Questionnaire Thrive Questionnaire Date Thrive assessed: 03/22/25 I am a: Patient What is your living situation today?: I have a steady place to live Within the past 12 months, did the food you bought not last and you didn't have the money to get more?: Often true Within the past 12 months, did you worry whether your food would run out before you got money to buy more?: Never true Do you have trouble paying for medicines?: Yes Do you have trouble getting transportation to medical appointments?: No Do you have trouble paying your heating and electricity bill?: Yes Do you have trouble taking care of your child, family member or friend?: No Do you have trouble with day-to-day activities such as bathing, preparing meals, shopping, managing finances, etc.?: No Are you currently unemployed and looking for a job?: No Are you interested in more education?: No Currently or been in a relationship where the following occur: No concerns reported THRIVE Score: 2 STEPHEN-7 AMB Questionnaire STEPHEN-7 Date STEPHEN - 7 assessed: 03/22/25 Source: Developed by DrsElieser Sierra, Deanne Vera, Kali Leo and colleagues, with an educational vik from [employer]. Physical exam (Primary Care) Vital Signs: Last Vital Signs Temp 98.6 F 09/26/25 10:11 Pulse 70 09/26/25 10:11 Resp 16 09/26/25 10:11 BP 128/68 09/26/25 10:11 Pulse Ox 96 09/26/25 10:11 Oxygen Delivery Method Room Air 09/26/25 10:11 BMI result Body Mass Index 37.0 Tobacco/Smoking Status: Tobacco use Status Tobacco use date assessed 09/26/25 09/26/25 10:12 Patient Tobacco Use Status Former Tobacco user 09/26/25 10:12 e-Cigarette/Vaping Use Never Used 09/26/25 10:12 Thrive Assessment: Date of Thrive Assessment Date Thrive assessed 03/22/25 09/26/25 10:12 Currently or been in a relationship where the following occur: No concerns reported Coding Level of Care Code Est Pt Level 3 (36817) Diagnoses HTN (hypertension) I10 Elevated serum creatinine R79.89 Breast tenderness in male N64.4 Dyslipidemia E78.5 Assessment & Plan Assessment & Plan (1) HTN (hypertension): Code(s): I10 - Essential (primary) hypertension Category: Medical (2) Elevated serum creatinine: Code(s): R79.89 - Other specified abnormal findings of blood chemistry Category: Medical (3) Breast tenderness in male: Comment: left, areolar region Code(s): N64.4 - Mastodynia Category: Medical (4) Dyslipidemia: Code(s): E78.5 - Hyperlipidemia, unspecified Category: Medical Plan . Orders: Orders Comprehensive Met. Panel Today R79.89 - Other specified abnormal findings of blood chemistry Lipid Panel 2 Months E78.5 - Hyperlipidemia, unspecified, I10 - Essential (primary) hypertension US breast LT complete Today N64.4 - Mastodynia Comprehensive [place]. Panel Fast 2 Months E78.5 - Hyperlipidemia, unspecified, I10 - Essential (primary) hypertension Medications: Changed From rosuvastatin (Crestor) 5 mg PO DAILY 90 tabs 1RF E78.9 - Disorder of lipoprotein metabolism, unspecified To rosuvastatin increased dose from 5mg 10 mg PO DAILY 90 tabs 1RF 90 days E78.9 - Disorder of lipoprotein metabolism, unspecified Refilled epinephrine (EpiPen 2-Robby) for 2 doses 0.3 mg (0.3 mL) IM Q10M PRN 2 ea 1RF anaphylaxis 30 days
[2025-09-26 10:11] VITALS: BP 128/68; PULSE 70; RESP 16; TEMP 37; O2SAT 96; BMI 37.0
--- OUTSIDE RECORDS SUMMARY | 2025-09-26 11:14 | XMS_ITS | Patient Health Record ---
Author Organization [facility] Address [address] [place] [address] Care Team Providers Care Well Drill Operator Helper Cable Tool Name Role Phone CAROLEE BROWN Primary Care Provider Mark Jamison Unavailable [phone] Reason For Referral No Information Medications Medication [...] Status Risk Notes Problem Already on aspirin (208393382) Long-term (current) use of aspirin (V58.66) Active confirmed Problem Colon cancer screening (291470247) Colon cancer screening (V76.51) Active confirmed Problem History of adenomatous polyp of colon (618296515) History of adenomatous polyp of colon (V12.72) Active confirmed Plan Of Treatment Future Test Test Name Order Date COLONOSCOPY 12/09/2013 Insurance Providers Payer Name Payer Address Payer Phone Subscriber Number Group Number Insured Name Patient Relationship to Insured Coverage Start Date Coverage End Date [facility] [address] [place], [place] [id number] [phone] [id number] MICHOACANO MCKEON Self - patient is the insured Medical (General) History Medical History History ICD Code colonoscopy 04-05-2009--1 tubular adenoma removed asthma/COPD Denies [place],DM,CVA,renal disease Neg ETT in approx 2011 Surgical History Surgery Date(Month/Year) nasal surgery vasectomy shoulder surgery
--- OUTSIDE RECORDS SUMMARY | 2025-09-26 11:14 | XMS_ITS | Clinical Summary ---
Author Organization [address] [facility] Address [address] [place] [address] Phone Care Team Providers Care Ornamental Ironworker Helper Name Role Phone Unavailable Primary Care [...]
--- OUTSIDE RECORDS SUMMARY | 2025-09-26 11:14 | XMS_ITS | Encounter Summary ---
Author Organization [facility] Address [address] [place] [address] Care Team Providers Care Answering Service Agent Name Role Phone Unavailable Primary Care Provider Unavailabl e Encounter Details Date Type Department Care Team (Late st Contact Info) Description 09/29/2024 Lab Requisition [facility] - Main Lab [address] [facility] [place] [address] Eula Baires MD [address] [place] [address] Roge ISAAC [id number] Tinea pedis; Local infection of the skin [...] PM EST Performed at: 01 - [facility] [address] [id number] Coremaker Experimental: Luisana Padilla MD, Phone: [phone] Eula Baires MD LAB MICROBIOLOGY - GENERAL ELIZABETH WEAVER Final Result Performing Organization Address City/[facility]/ZIP Co de Phone Number [facility] * Organism ID ([facility] Bill Only) (09/29/2024 12:00 AM EST) Organism ID Performed 10/21/2024 6:05 PM EST [facility] Other Venous blood specimen / Unknown 09/29/2024 10/18/2024 11:21 AM EST Narrative [facility] - 10/21/2024 6:05 PM EST [facility]formed at: [facility] [address], [address], [place], [place] [id number] Coremaker Experimental: Arik Wilks MD, Phone: [phone] Eula Baires MD LAB MICROBIOLOGY - GENERAL ELIZABETH WEAVER Final Result [facility] * (ABNORMAL) Organism identification yeast (09/29/2024 12:00 AM EST) Result 1 Malassezia pachydermatis(A ) 10/21/2024 6:05 PM EST [facility] Other 09/29/2024 10/18/2024 11: 21 AM EST Narrative [facility] - 10/21/2024 6:05 PM EST Performed at: - [address] [id number] Coremaker Experimental: Luisana Padilla MD, Phone: [phone] Eula Baires MD LAB MICROBIOLOGY - GENERAL ORDE RABLES Final Result [facility] * (ABNORMAL) Fungal identification, yeast (09/29/2024 12:00 AM EST) Organism Identification , Yeast Final report(A) 10/21/2024 6:05 PM EST [facility] Other 09/29/2024 10/18/2024 11: 21 AM EST Narrative [facility] - 10/21/2024 6:05 PM EST Performed at: - [address] [id number] Coremaker Experimental: Luisana Padilla MD, Phone: [phone] Eula Baires MD LAB MICROBIOLOGY - GENERAL ORDE RABLES Final Result [facility] * Fungal identification, mold (09/29/2024 12:00 AM EST) Organism Identification , Mold Final report 10/27/2024 2:05 PM EST [facility] Other Topography unknown / Unknown 09/29/2024 10/17/2024 12:17 PM EST Narrative [facility] - 10/27/2024 2:05 PM EST Performed at: [address] [id number] Coremaker Experimental: Luisana Padilla MD, Phone: [phone] Eula Baires MD LAB MICROBIOLOGY - GENERAL ELIZABETH WEAVER Final Result [facility] * (ABNORMAL) Culture fungal, other (09/29/2024 12:00 AM EST) Culture, Fungus Yeast(A) DONNA 11/14/2024 2:58 PM EST [facility] Comment: Sent to reference lab for identification. For results refer to specimen [id number] The organism value for this result has been updated. These results have been appended to the previously preliminary verified report. Culture, Fungus Mold(A) DONNA 11/14/2024 2:58 PM EST [facility] Comment: Sent to reference lab. For results refer to specimen [id number] The organism value for this result has been updated. These results have been appended to the previously preliminary verified report. Skin 09/29/2024 09/29/2024 6:3 3 PM EST Eula Baires MD LAB MICROBIOLOGY - GENERAL ELIZABETH WEAVER Final Result Performing Organization Address [facility] Co de Phone Number [facility] [address] [place] [address], documented in this encounter Visit Diagnoses Diagnosis Tinea pedis Dermatophytosis of foot Local infection of the skin and subcutaneous tissue, unspecified Other atopic dermatitis documented in this encounter
== END 2025-09-26 11:31 | disposition home or self-care (01) ==
LOC: HO.HMCC 09:53
PROVIDERS: PCP Nurse Practitioner Family; Visit Provider Nurse Practitioner Family
DX: I10 Essential (primary) hypertension (principal); R79.89 Other specified abnormal findings of blood chemistry; N64.4 Mastodynia; E78.5 Hyperlipidemia, unspecified

== ENCOUNTER → 2025-09-26 09:52 | Outpatient (BNVA) | payer MEDICARE, SELFPAY | PROVIDERS: PCP Nurse Practitioner Family; Visit Provider Nurse Practitioner Family | DX: I10 Essential (primary) hypertension (principal); R79.89 Other specified abnormal findings of blood chemistry; E78.00 Pure hypercholesterolemia, unspecified; R74.8 Abnormal levels of other serum enzymes; N64.4 Mastodynia | CPT/HCPCS: 99212 ==

== ENCOUNTER 2025-10-05 08:19 | Outpatient (AMB) | payer MEDICARE, SELFPAY ==
[2025-10-05 08:29] VITALS: BP 136/86; PULSE 86; O2SAT 95; BMI 36.8
--- NOTE | 2025-10-05 08:29 | MHC.OFFVIS ---
Vital Signs 10/05/25 08:29 Height 6 ft Weight 271 lb BMI 36.8 BP 136/86 Blood Pressure Location Rt brachial Position Sitting Pulse 86 Pulse Source Pulse Oximeter Pulse Oximetry (%) 95 Oxygen Delivery Method Room Air Intake Visit Reasons: 3m follow up Intake Note: Patient presents follow up BRADEN Medication. PSG in chart(AHI-10, GIUSEPPE-78%. APAP 5-20). Accompanied by: Self / Same As Patient Allergies nuts Allergy (Severe, Uncoded 10/05/25 15:00) Anaphylaxis soap Adverse Reaction (Intermediate, Uncoded 10/05/25 15:00) rash HPI Comments Details: 65 year old male with COPD presents for a review of his HST. 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 He goes to bed at 11pm and has one arousal at 1am then again at 3:30am. He usually goes to sleep in 30min and will sleep until 7:45 and then lets the dog out. He takes Banofen 25mg at 10pm to help him stay asleep. He had vivid dreams with belsomra and discontinued it. [facility] to exczema and psoriasis. Restless leg symptoms of pins and needles when sitting down too long, he gets up and walks around, takes magnesium 400mg and stretching improves symptoms. The sensation of itchiness and burning is improved with Clobesatol. He has compression stockings, makes his RLS symptoms worse. His c/o loud snoring with tossing, and turning. His diet is terrible, he eats alot. Mood is great. Denies headaches, bruxism, acid reflux, parasomnias, thrashing, flailing behaviors. [facility] Medical History HTN (hypertension) Pulmonary hypertension COPD (chronic obstructive pulmonary disease) BRADEN (obstructive sleep apnea) Fatty liver Diverticulosis History of colon polyps Eczematous dermatitis Obesity Personal history of nicotine dependence Refused pneumococcal vaccination Surgical History History of shoulder surgery History of colonoscopy History of vasectomy Family History Father Cancer Mother No problems noted. 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 [employer] Current occupational exposures/hazards: No Cognitive needs: No Hearing needs: No Vision needs: Yes (Bifocals) Physical Exam Vital Signs: Last Vital Signs Pulse 86 10/05/25 08:29 BP 136/86 10/05/25 08:29 Pulse Ox 95 10/05/25 08:29 Oxygen Delivery Method Room Air 10/05/25 08:29 BMI result Body Mass Index 36.8 Const Other: BMI is 38.5 General: cooperative, comfortable and no acute distress Nutritional Appearance: obese Orientation/consciousness: patient oriented x3 HEENT Face and sinus: Yes face symmetric Teeth and gingiva: other (Mallmpti score is 4) Eyes Pupils: Equal, round and reactive pupils present Neck Neck: Yes full ROM Resp Effort & Inspection: normal respiratory effort and able to speak in complete sentences Neuro General: patient oriented x3 and moves all extremities Cranial nerves: Yes Equal, round and reactive pupils present, Yes Normal accommodation reflex present, Yes Normal facial strength present, Yes Midline tongue present, Yes Ability to bilaterally rotate head present and Yes Ability to bilaterally elevate shoulders present Gait exam (Neuro): Normal gait present Motor exam (neuro): 5/5 motor strength present throughout and Normal motor muscle tone present throughout Deep tendon reflexes (DTR's): Right triceps reflex intensity grade: 2+, Left triceps reflex intensity grade: 2+, Rt Biceps (C5, C6): 2+, Left biceps reflex intensity grade: 2+, Right brachioradialis reflex intensity grade: 2+, Left brachioradialis reflex intensity grade: 2+, Right patellar reflex intensity grade: 2+, Left patellar reflex intensity grade: 2+, Right ankle reflex intensity grade: 2+ and Left ankle reflex intensity grade: 2+ Coordination: [id number] test normal Psych Appearance: grossly normal Speech and movement: Normal speech and movement present Thought process: Normal thought process present Thought content: Normal thought content present Results Reviewed Results Reviewed: HST consist with mild braden AHI 10 and O2 nadirs to 78%, will start APAP 5-20 and monitor for compliances Assessment & Plan Assessment & Plan (1) Excessive daytime sleepiness: Code(s): G47.19 - Other hypersomnia Category: Medical (2) Anemia: Code(s): D64.9 - Anemia, unspecified Category: Medical Qualifiers: Anemia type: iron deficiency Iron deficiency anemia type: unspecified iron deficiency Qualified Code(s): D50.9 - Iron deficiency anemia, unspecified (3) BRADEN (obstructive sleep apnea): Code(s): G47.33 - Obstructive sleep apnea (adult) (pediatric) Category: Medical (4) Daytime sleepiness: Code(s): R40.0 - Somnolence Category: Medical Plan HST reviewed with pt he has mild braden, will start on apap and f/u for compliance. Labs reviewed with pt. F/U in 3 months Patient Instructions: Please complete the following fasting labs to rule out deficiencies. CBC/CMP/ B12/ Vit D/ TSH/ Homocysteine and MMA/ Ferritin. Sleep Hygiene provided: set a scheduled bedtime and wake time to help regulate the circadian rhythm and balance the release of pituitary hormones. Sleep in a dark room, temperatures below 68 degrees, and no devices n bed. Limit caffeinated products 6 hours prior to bed, and limit fluids 2-4 hours prior to bed. Gentle night yoga, diffusing essential oils, and playing soft music can be relaxing. Coding Level of Care Code Est Pt Level 4 (98407) Diagnoses Excessive daytime sleepiness G47.19 Iron deficiency anemia, unspecified iron deficiency anemia type D50.9 Anemia type: iron deficiency Iron deficiency anemia type: unspecified iron deficiency BRADEN (obstructive sleep apnea) G47.33 Daytime sleepiness R40.0
--- OUTSIDE RECORDS SUMMARY | 2025-10-05 08:52 | XMS_ITS | Patient Health Record ---
Author Organization [facility] Address [address] [place] [address] Care Team Providers Care Hired Help Name Role Phone CAROLEE BROWN Primary Care Provider Mark Jamison [phone] Reason For Referral No Information Medications Medication SIG (Take, Route, Frequency, Duration) Notes Start Date End Date Status Aspirin 81 mg Active Symbicort 160/4-5 Ac tive MoviPrep 100 GM Solution Reconstituted as directed Orally as directed; Duration: 1 dose 12/09/2013 Active Vitamin D Active ProAir HFA Active Social History Social History Additional Details Category Social Info Options Details Miscellaneous: Marital status: 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 , 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 Section Notes: Stopped smoking > 5 yrs ago; no sig alcohol Problems Problem Type SNOMED Code ICD Code Onset Dates Problem Status W/U Status Risk Notes Problem Already on aspirin (498241899) Long-term (current) use of aspirin (V58.66) Active confirmed Problem Colon cancer screening (717483180) Colon cancer screening (V76.51) Active confirmed Problem History of adenomatous polyp of colon (949719254) History of adenomatous polyp of colon (V12.72) Active confirmed Plan Of Treatment Future Test Test Name Order Date COLONOSCOPY 12/09/2013 Insurance Providers Payer Name Payer Address Payer Phone Subscriber Number Group Number Insured Name Patient Relationship to Insured Coverage Start Date Coverage End Date [facility] [address] [place], [place] [id number] MICHOACANO MCKEON Self - patient is the insured Medical (General) History Medical History History ICD Code colonoscopy [id number]--1 tubular adenoma removed asthma/COPD Denies CT,DM,CVA,renal disease Neg ETT in approx 2011 Surgical History Surgery Date(Month/Year) nasal surgery vasectomy shoulder surgery
== END 2025-10-05 09:21 | disposition home or self-care (01) ==
LOC: HO.HSMS 08:19
PROVIDERS: PCP Nurse Practitioner Family; Visit Provider Physician Assistant Medical
DX: G47.19 Other hypersomnia (principal); D50.9 Iron deficiency anemia, unspecified; G47.33 Obstructive sleep apnea (adult) (pediatric); R40.0 Somnolence
CPT/HCPCS: 99214

== ENCOUNTER → 2025-10-05 08:19 | Outpatient (BNVA) | payer MEDICARE, SELFPAY | PROVIDERS: PCP Nurse Practitioner Family; Visit Provider Physician Assistant Medical | DX: I83.12 Varicose veins of left lower extremity with inflammation (principal); G47.33 Obstructive sleep apnea (adult) (pediatric); R40.0 Somnolence; D50.9 Iron deficiency anemia, unspecified | CPT/HCPCS: 99212 ==

== ENCOUNTER 2025-10-05 14:51 | Outpatient (AMB) | payer MEDICARE, SELFPAY ==
--- NOTE | 2025-10-05 14:53 | A.OFFVIS_ITS ---
Intake Visit Reasons: 2 wk follow up Left GSV Venaseal 09/22/25 Intake Note: 2 week follow up Left GSV Venaseal, pt states decrease in Left ankle swelling and discoloration has decreased Commercial Singer Required: No Accompanied by: Self / Same As Patient Allergies nuts Allergy (Severe, Uncoded 10/05/25 15:00) Anaphylaxis soap Adverse Reaction (Intermediate, Uncoded 10/05/25 15:00) rash HPI HPI 2 wk follow up Left GSV Venaseal 09/22/25: Details: The patient is a 65 year old individual presenting for a follow-up visit status post left great saphenous vein VenaSeal procedure. The procedure was performed on 09/22/2025. Post-procedure, the patient reports feeling well and did not experience any pain during or after the intervention, which was done under local anesthesia. The patient has noted a decrease in leg swelling, to the point of being able to see the ankle, and an improvement in skin color. The patient was unable to work one day due to a lifting restriction, but arranged for coverage. [facility] Medical History HTN (hypertension) Pulmonary hypertension COPD (chronic obstructive pulmonary disease) BRADEN (obstructive sleep apnea) Fatty liver Diverticulosis History of colon polyps Eczematous dermatitis Obesity Personal history of nicotine dependence Refused pneumococcal vaccination Surgical History History of shoulder surgery History of colonoscopy History of vasectomy Family History Father Cancer Mother No problems noted. 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 [employer] Current occupational exposures/hazards: No Cognitive needs: No Hearing needs: No Vision needs: Yes (Bifocals) Review of Systems Const Reports as per HPI ENT Reports no additional complaints Card Denies chest pain, Denies chest pain at rest and Denies chest pain with activity Resp Denies chest congestion and Denies cough GI Reports no additional complaints Musc Details: pain over varicosities, aching of lower extremities, swelling, cramping, heaviness and tiredness, itching Denies abnormal gait Skin/Breast Reports pruritus and Denies wounds Neuro Reports no additional complaints and Denies abnormal gait Psych Denies no additional complaints Physical Exam Const General: cooperative, healthy appearing and comfortable Orientation/consciousness: oriented to person, oriented to place and oriented to time Neck Carotids: no bruits Chest Chest palpation & inspection: normal inspection of the chest and normal palpation of entire chest wall Resp Effort & Inspection: normal respiratory effort and able to speak in complete sentences Cardio Rate: regular rate Heart sounds: S1 normal heart sound present and S2 normal heart sound present Peripheral pulses: Peripheral pulses 2+ throughout GI Inspection: Yes normal to inspection Skin Other: +2 edema, large rope-like varicosities greater than 4 mm CEAP Classification C4 - skin color changes Ep - Etiology Primary As - superficial veins P - reflux General skin exam: dry skin Neuro General: oriented to person, oriented to place and oriented to time Extrem Right lower extremity: full ROM, normal capillary refill and edema Left lower extremity: full ROM, normal capillary refill and edema Psych Mental Status: mental status grossly normal Assessment & Plan Assessment & Plan (1) Varicose veins of left lower extremity with inflammation: Comment: 09/22/2025 - left great saphenous vein Cyanoacralate ablation Code(s): I83.12 - Varicose veins of left lower extremity with inflammation Category: Medical Plan: The patient has done extremely well with all venous treatments. Patient's may often experience postprocedure phlebitic episodes and I have discussed with the patient use of warm compresses and NSAIDS if tolerated for pain discomfort. In addition, I have discussed continued conservative measures including use of compression, leg elevation, and exercise. The patient was also given an information sheet regarding appropriate use of compression stockings and future purchases. Thank you for allowing us to care for your patient with venous disease. Coding Level of Care Code Est Pt Level 3 (52096) Diagnoses Varicose veins of left lower extremity with inflammation I83.12
== END 2025-10-05 15:12 | disposition home or self-care (01) ==
LOC: HO.HVS 14:52
PROVIDERS: PCP Nurse Practitioner Family; Visit Provider Surgery Vascular Surgery
DX: I83.12 Varicose veins of left lower extremity with inflammation (principal)
CPT/HCPCS: 99213